=== PATIENT | female | born 1935 | race Caucasian/White ===

== ENCOUNTER 2017-04-10 11:06 | Emergency (ER) | payer MEDICARE, BC ==
[2017-04-10] MEDS ORDERED: Sodium Chloride 0.9% 10 ML Syringe FLUSH PRN (11:52)
--- NOTE | 2017-04-10 11:57 | EDM.PDOC ---
ED HPI GENERAL MEDICAL PROBLEM - General Chief Complaint: Cardiovascular Problem Stated Complaint: TROUBLE BREATHING Time Seen by Provider: 04/10/17 11:54 Source of Information: Reports: Patient History Limitations: Reports: No Limitations - History of Present Illness INITIAL COMMENTS - FREE TEXT/NARRATIVE: 81 yo female presents with c/o shortness of breath x 2-3 days. States that she has been having a lot of difficulty catching her breath. Denies pain, n/v but states she had some diarrhea yesterday. No other complaints. Onset: Unknown/Unsure Duration: Getting Worse Worsens with: Reports: Breathing Associated Symptoms: Reports: Headaches - Related Data Allergies Allergy/AdvReac Type Severity Reaction Status Date / Time Penicillins Allergy Airway Verified 04/10/17 11:40 Tightness Sulfa (Sulfonamide Allergy Airway Verified 04/10/17 11:40 Antibiotics) Tightness Home Meds: Home Meds Acetaminophen [Tylenol Arthritis Pain] 650 mg PO Q8H PRN 09/27/13 [History] Amiodarone HCl 200 mg PO DAILY 09/27/13 [History] Aspirin [Loida Chewable Aspirin] 81 mg PO DAILY 09/27/13 [History] Ca Carbonate/Vitamin D3/Vit K [Calcium + D Soft Chewable Tab] 1 each PO DAILY [History] Hydrochlorothiazide 25 mg PO DAILY 09/27/13 [History] Levothyroxine Sodium 50 mcg PO DAILY 09/27/13 [History] Multivitamin [Multi-Vitamin Daily] 1 tab PO DAILY 09/27/13 [History] Omeprazole 20 mg PO DAILY 09/27/13 [History] Sennosides/Docusate Sodium [Senna-Docusate Sodium] 1 tab PO DAILY 09/27/13 [ History] atorvaSTATin Calcium [Atorvastatin Calcium] 80 mg PO DAILY 09/27/13 [History] Warfarin [Coumadin] 6 mg PO DAILY 09/28/13 [History] LORazepam [LORazepam] 0.5 mg PO ASDIRECTED 12/03/15 [History] Lisinopril 20 mg PO ASDIRECTED 12/03/15 [History] Past Medical History Cardiovascular History: Reports: Afib Gastrointestinal History: Reports: GERD Psychiatric History: Reports: Anxiety Endocrine/Metabolic History: Reports: Hypothyroidism Social & Family History - Tobacco Use Smoking Status *Q: Former Smoker Years of Tobacco use: 20 Used Tobacco, but Quit: Yes Month Tobacco Last Used: years ago Second Hand Smoke Exposure: No - Alcohol Use Days Per Week of Alcohol Use: 0 Number of Drinks Per Day: 1 Total Drinks Per Week: 0 - Recreational Drug Use Recreational Drug Use: No - Living Situation & Occupation Living situation: Reports: , with Spouse Occupation: Retired ED ROS GENERAL - Review of Systems Review Of Systems: ROS reveals no pertinent complaints other than HPI. ED EXAM, GENERAL - Physical Exam Exam: See Below Exam Limited By: No Limitations General Appearance: Alert, WD/WN, No Apparent Distress Eye Exam: Bilateral Eye: PERRL Ears: Normal External Exam, Normal Canal, Hearing Grossly Normal, Normal TMs Ear Exam: Bilateral Ear: Auricle Normal, Canal Normal, TM normal Nose: Normal Inspection Throat/Mouth: Normal Inspection, Normal Lips, Normal Teeth, Normal Gums, Normal Oropharynx, Normal Voice, No Airway Compromise Head: Atraumatic, Normocephalic Neck: Normal Inspection, Supple, Non-Tender, Full Range of Motion Respiratory/Chest: No Respiratory Distress, No Accessory Muscle Use, Chest Non- Tender, Decreased Breath Sounds, Crackles (BLL), Pleural Rub Cardiovascular: Normal Peripheral Pulses, Regular Rate, Rhythm, No Edema, No Gallop, No JVD, No Murmur, No Rub GI/Abdominal: Normal Bowel Sounds, Soft, Non-Tender, No Organomegaly, No Distention, No Abnormal Bruit, No Mass Extremities: Normal Inspection, Normal Range of Motion, Non-Tender, Normal Capillary Refill, No Pedal Edema Neurological: Alert, Oriented, CN II-XII Intact, Normal Cognition, Normal Gait, No Motor/Sensory Deficits Skin Exam: Warm, Dry, Intact, Normal Color, No Rash Course - Vital Signs Last Recorded V/S: Last Vital Signs Temp 97.8 F 04/10/17 14:25 Pulse 92 04/10/17 11:15 Resp 18 04/10/17 14:25 BP 153/39 H 04/10/17 14:25 Pulse Ox 95 04/10/17 11:15 - Orders/Labs/Meds Orders: Active Orders 24 hr Category Date Time Status EKG Documentation Completion [RC] STAT Care 04/10/17 11:51 Active RED BLOOD CELLS LP [BBK] Stat Lab 04/10/17 13:00 Results TYPE AND SCREEN [BBK] Stat Lab 04/10/17 13:00 Results Pantoprazole [ProTONIX IV] 40 mg Med 04/10/17 14:43 Active Sodium Chloride 0.9% [Normal Saline] 100 ml IV .CONTINUOS Sodium Chloride 0.9% [Normal Saline] 250 ml Med 04/10/17 12:00 Active IV ASDIRECTED Sodium Chloride 0.9% [Saline Flush] Med 04/10/17 11:52 Active 10 ml FLUSH ASDIRECTED PRN Saline Lock Insert [OM.PC] Stat Ot 04/10/17 11:51 Ordered Transfuse PRBC [Transfuse Red Blood Cells] [COMM] Stat Ot 04/10/17 13:11 Ordered Medication Orders Sodium Chloride (Normal Saline) 250 mls @ 250 mls/hr IV ASDIRECTED SJ Last Admin: 04/10/17 12:26 Dose: 250 mls/hr Pantoprazole Sodium 40 mg/ (Sodium Chloride) 100 mls @ 20 mls/hr IV .CONTINUOS SJ Sodium Chloride (Saline Flush) 10 ml FLUSH ASDIRECTED PRN PRN Reason: Keep Vein Open Last Admin: 04/10/17 12:31 Dose: 10 ml Labs: Laboratory Tests 04/10/17 04/10/17 04/10/17 Range/Units 12:00 12:00 12:00 WBC 5.3 (5.0-10.0) 10^3/uL RBC 2.04 L (4.2-5.4) 10^6/uL Hgb 4.1 L* (12.0-16.0) g/dL Hct 15.3 L* (37.0-47.0) % MCV 75.0 L (80-100) fL MCH 20.1 L (27.0-34.0) pg MCHC 26.8 L (33.0-35.0) g/dL Plt Count 327 (150-450) 10^3/uL Neut % (Auto) 65.2 (42.2-75.2) % Lymph % (Auto) 23.4 (20.5-50.1) % [place] % (Auto) 9.3 H (2-8) % Eos % (Auto) 1.3 (1.0-3.0) % Baso % (Auto) 0.8 (0.0-1.0) % PT (9.0-12.0) SEC INR (0.9-1.2) Sodium 140 (135-145) mmol/L Potassium 3.8 (3.6-5.0) mmol/L Chloride 107 (101-111) mmol/L Carbon Dioxide 24.0 (21.0-31.0) mmol/L Anion Gap 12.8 BUN 14 (7-18) mg/dL Creatinine 0.6 (0.6-1.3) mg/dL Est Cr Clr Drug Dosing 63.82 mL/min Estimated GFR (MDRD) > 60 Glucose 97 (74-105) mg/dL Calcium 8.2 L (8.4-10.2) mg/dl Creatine Kinase 106 (26-174) IU/L Creatine Kinase Index 1.2 (0-2.4) % CK-MB (CK-2) 1.30 (0.4-4.7) ng/mL Troponin I < 0.02 (0.00-0.02) ng/ml B-Natriuretic Peptide 241 H (0-100) pg/ml Urine Color (YELLOW) Urine Appearance (CLEAR) Urine pH (5.0-9.0) Ur Specific [place] (1.005-1.030) Urine Protein (NEGATIVE) Urine Glucose (UA) (NEGATIVE) Urine Ketones (NEGATIVE) Urine Occult Blood (NEGATIVE) Urine Nitrite (NEGATIVE) Urine Bilirubin (NEGATIVE) Urine Urobilinogen (0.2-1.0) mg/dL Ur Leukocyte Esterase (NEGATIVE) Urine RBC /HPF Urine WBC (0-5/HPF) /HPF Ur Epithelial Cells /HPF Urine Bacteria (0-FEW/HPF) /HPF Blood Type Gel Antibody Screen Crossmatch 04/10/17 04/10/17 04/10/17 Range/Units 13:00 13:00 13:45 WBC (5.0-10.0) 10^3/uL RBC (4.2-5.4) 10^6/uL Hgb (12.0-16.0) g/dL Hct (37.0-47.0) % MCV (80-100) fL MCH (27.0-34.0) pg MCHC (33.0-35.0) g/dL Plt Count (150-450) 10^3/uL Neut % (Auto) (42.2-75.2) % Lymph % (Auto) (20.5-50.1) % [place] % (Auto) (2-8) % Eos % (Auto) (1.0-3.0) % Baso % (Auto) (0.0-1.0) % PT 36.8 H (9.0-12.0) SEC INR 3.6 H (0.9-1.2) Sodium (135-145) mmol/L Potassium (3.6-5.0) mmol/L Chloride (101-111) mmol/L Carbon Dioxide (21.0-31.0) mmol/L Anion Gap BUN (7-18) mg/dL Creatinine (0.6-1.3) mg/dL Est Cr Clr Drug Dosing mL/min Estimated GFR (MDRD) Glucose (74-105) mg/dL Calcium (8.4-10.2) mg/dl Creatine Kinase (26-174) IU/L Creatine Kinase Index (0-2.4) % CK-MB (CK-2) (0.4-4.7) ng/mL Troponin I (0.00-0.02) ng/ml B-Natriuretic Peptide (0-100) pg/ml Urine Color Yellow (YELLOW) Urine Appearance Clear (CLEAR) Urine pH 7.0 (5.0-9.0) Ur Specific [place] 1.015 (1.005-1.030) Urine Protein Negative (NEGATIVE) Urine Glucose (UA) Negative (NEGATIVE) Urine Ketones Negative (NEGATIVE) Urine Occult Blood Negative (NEGATIVE) Urine Nitrite Negative (NEGATIVE) Urine Bilirubin Negative (NEGATIVE) Urine Urobilinogen 0.2 (0.2-1.0) mg/dL Ur Leukocyte Esterase Negative (NEGATIVE) Urine RBC Not seen /HPF Urine WBC 0-5 (0-5/HPF) /HPF Ur Epithelial Cells Rare /HPF Urine Bacteria Rare (0-FEW/HPF) /HPF Blood Type B POSITIVE Gel Antibody Screen Negative Crossmatch See Detail Meds: Medications Generic Name Dose Route Start Last Admin Trade Name Freq PRN Reason Stop Dose Admin Sodium Chloride 250 mls @ 250 mls/hr 04/10/17 12:00 04/10/17 12:26 Normal Saline IV 250 mls/hr ASDIRECTED SJ Administration Pantoprazole Sodium 40 mg/ 100 mls @ 20 mls/hr 04/10/17 14:43 Sodium Chloride IV .CONTINUOS SJ Sodium Chloride 10 ml 04/10/17 11:52 04/10/17 12:31 Saline Flush FLUSH 10 ml ASDIRECTED PRN Administration Keep Vein Open Discontinued Medications Generic Name Dose Route Start Last Admin Trade Name Freq PRN Reason Stop Dose Admin Furosemide 20 mg 04/10/17 15:25 Lasix IVPUSH 04/10/17 15:26 ONETIME ONE Iopamidol 100 ml 04/10/17 13:55 04/10/17 14:14 Isovue-300 (61%) IVPUSH 04/10/17 13:56 100 ml ONETIME ONE Administration Phytonadione 1 mg 04/10/17 15:25 Aquamephyton SUBCUT 04/10/17 15:26 ONETIME ONE Departure - Departure Time of Disposition: 15:36 Disposition: Refer to Observation Reason for Transfer *Q: Primary PCI Indicated (GI Bleed) Condition: Fair Clinical Impression: CHF (congestive heart failure) Qualifiers: Congestive heart failure type: unspecified congestive heart failure type Congestive heart failure chronicity: acute Qualified Code(s): I50.9 - Heart failure, unspecified GI bleed Qualifiers: GI bleed type/associated pathology: unspecified gastrointestinal hemorrhage type Qualified Code(s): K92.2 - Gastrointestinal hemorrhage, unspecified Forms: ED Department Discharge, Interfacility Transfer EMTALA - My Orders Last 24 Hours: My Active Orders 04/10/17 11:51 EKG Documentation Completion [RC] STAT Saline Lock Insert [OM.PC] Stat 04/10/17 11:52 Sodium Chloride 0.9% [Saline Flush] 10 ml FLUSH ASDIRECTED PRN 04/10/17 12:00 Sodium Chloride 0.9% [Normal Saline] 250 ml IV ASDIRECTED 04/10/17 13:00 RED BLOOD CELLS LP [BBK] Stat TYPE AND SCREEN [BBK] Stat 04/10/17 13:11 Transfuse PRBC [Transfuse Red Blood Cells] [COMM] Stat 04/10/17 14:43 Pantoprazole [ProTONIX IV] 40 mg Sodium Chloride 0.9% [Normal Saline] 100 ml IV .CONTINUOS - Assessment/Plan Last 24 Hours: My Active Orders 04/10/17 11:51 EKG Documentation Completion [RC] STAT Saline Lock Insert [OM.PC] Stat 04/10/17 11:52 Sodium Chloride 0.9% [Saline Flush] 10 ml FLUSH ASDIRECTED PRN 04/10/17 12:00 Sodium Chloride 0.9% [Normal Saline] 250 ml IV ASDIRECTED 04/10/17 13:00 RED BLOOD CELLS LP [BBK] Stat TYPE AND SCREEN [BBK] Stat 04/10/17 13:11 Transfuse PRBC [Transfuse Red Blood Cells] [COMM] Stat 04/10/17 14:43 Pantoprazole [ProTONIX IV] 40 mg Sodium Chloride 0.9% [Normal Saline] 100 ml IV .CONTINUOS
[2017-04-10] MEDS ORDERED: Sodium Chloride 0.9% 250 ML IV SCH (12:00)
[2017-04-10 12:29] LABS: CHLORIDE,CL 107 mmol/L (101-111); SODIUM,NA 140 mmol/L (135-145)
--- NOTE | 2017-04-10 12:34 | CR ---
Clinical history: 81-year-old female shortness of breath. Interpretation: Generalized slight increased pulmonary venous congestion (compared to AP film Apr ust 2014) but normal cardiac silhouette and no alveolar edema or dependent pleural effusion. No new lung mass, hilar lymphadenopathy or focal lobar pneumonia. No atelectasis/collapse. No pneumothorax.
[2017-04-10] MEDS ORDERED: Iopamidol 612 MG/ML 100 ML Bottle IVPUSH ONE (13:55)
[2017-04-10] MEDS ORDERED: Pantoprazole 40 MG in Sodium Chloride 0.9% 100 ML IV SCH (14:43)
--- NOTE | 2017-04-10 15:18 | CT ---
Clinical history: 81-year-old hypertensive 162 pound female with low hemoglobin (4) and shortness of breath. Hysterectomy. Scan technique: Volume acquisition of data emergency unenhanced CT scan of the chest, abdomen and pe lvis obtained without oral contrast but during the intravenous administration 100 cc nonionic Isovue contrast (3 cc/s via injector) while the patient was lying supine on the Siemens multi slice scanne [place], [place]. All data archived in the PACS system for storage, reformatting and study. Interpretation: Abnormal. 1. *Large heart, bibasilar dependent pleural effusions and generalized pulmonary venous congestion c haracteristic of CHF. 2. Desiccation scattered along the course of normal caliber ectatic thoracic and abdominal aorta. No aneurysm or dissection. 3. Normal gallbladder, liver, stomach, spleen, pancreas and adrenal glands. No sign of visceral hemo rrhage or hematoma. 4. Normal kidneys without sign of cortical mass lesion, nephrolithiasis, hematoma or obstructive uro fatoumata. Normal bladder. 5. No pelvic or abdominal mass lesion; retroperitoneal hematoma or lymphadenopathy; inflammatory "di rty" peritoneal fat, signs of mechanical bowel obstruction, ascites or free intraperitoneal air. 6. 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 CONCLUSION: Heart failure. No sign of intraperitoneal bleed or hematomas.
[2017-04-10] MEDS ORDERED: Phytonadione 1 MG/0.5 ML Syringe SUBCUT ONE (15:25)
[2017-04-10] MEDS ORDERED: Furosemide 20 MG/2 ML VIAL IVPUSH ONE (15:25)
[2017-04-10] MEDS ORDERED: Furosemide 20 MG/2 ML VIAL ONE (15:40)
[2017-04-10] MEDS ORDERED: LORazepam 1 MG Tab PO ONE (16:02)
[2017-04-10 16:36] VITALS: BP 109/64
--- NOTE | 2017-04-14 11:21 | EKG ---
04/10/2017 - VICTORIANO MORGAN- TIME: 11:32 a.m. EKG shows sinus rhythm. There are nonspecific T-wave abnormalities in anterior leads. T-wave flattening. [facility] /[id number]
== END 2017-04-10 16:46 | disposition other institution (70) ==
LOC: DL.ED 11:06
DX: I50.9 Heart failure, unspecified (principal); K92.2 Gastrointestinal hemorrhage, unspecified; K21.9 Gastro-esophageal reflux disease without esophagitis; E03.9 Hypothyroidism, unspecified; F41.9 Anxiety disorder, unspecified; Z87.891 Personal history of nicotine dependence; Z88.0 Allergy status to penicillin; Z88.2 Allergy status to sulfonamides; Z79.82 Long term (current) use of aspirin; Z79.01 Long term (current) use of anticoagulants; Z79.899 Other long term (current) drug therapy
CPT/HCPCS: 36415; 36430; 71010; 71260; 74177; 80048; 81001; 82272; 82550; 82553; 83880; 84484; 85025; 85610; 86850; 86900; 86901; 86920; 86922; 93005; 96361; 96365; 96372; 96375; 99285; A9270; C9113; J1940; J7050; P9016; Q9967; 36410; 93010

== ENCOUNTER 2017-06-24 00:52 | Emergency (ER) | payer MEDICARE, BC ==
[2017-06-24 01:01] VITALS: BP 166/63
[2017-06-24] MEDS ORDERED: Ondansetron 4 MG/2 ML SDV IV ONE (01:09)
[2017-06-24 01:31] LABS: CHLORIDE,CL 102 mmol/L (101-111); SODIUM,NA 140 mmol/L (135-145)
[2017-06-24] MEDS ORDERED: Potassium Chloride 10 MEQ in Premix Bag 1 BAG IV ONE (01:41)
[2017-06-24] MEDS ORDERED: Sodium Chloride 0.9% 1,000 ML IV SCH (02:00)
--- NOTE | 2017-06-24 06:22 | EDM.PDOC ---
ED HPI GENERAL MEDICAL PROBLEM - General Chief Complaint: Cardiovascular Problem Stated Complaint: ATRIAL FIB Time Seen by Provider: 06/24/17 01:00 Source of Information: Reports: Patient History Limitations: Reports: No Limitations - History of Present Illness INITIAL COMMENTS - FREE TEXT/NARRATIVE: woke with heart racing, has had hx of afib in past with rapid rate. Recent INR done yesterday low, Coumadin increased. Nchest pain but SOB. Heart does not feel to be racing at preasent and breathing improved. Onset: Today, Sudden Duration: Minutes: Location: Reports: Chest Associated Symptoms: Reports: Shortness of Breath. Denies: Chest Pain - Related Data Allergies Allergy/AdvReac Type Severity Reaction Status Date / Time Penicillins Allergy Airway Verified 04/10/17 11:40 Tightness Sulfa (Sulfonamide Allergy Airway Verified 04/10/17 11:40 Antibiotics) Tightness Home Meds: Home Meds Acetaminophen [Tylenol Arthritis Pain] 650 mg PO Q8H PRN 09/27/13 [History] Amiodarone HCl 200 mg PO DAILY 09/27/13 [History] Aspirin [Loida Chewable Aspirin] 81 mg PO DAILY 09/27/13 [History] Ca Carbonate/Vitamin D3/Vit K [Calcium + D Soft Chewable Tab] 1 each PO DAILY [History] Hydrochlorothiazide 25 mg PO DAILY 09/27/13 [History] Levothyroxine Sodium 50 mcg PO DAILY 09/27/13 [History] Multivitamin [Multi-Vitamin Daily] 1 tab PO DAILY 09/27/13 [History] Omeprazole 20 mg PO DAILY 09/27/13 [History] Sennosides/Docusate Sodium [Senna-Docusate Sodium] 1 tab PO DAILY 09/27/13 [ History] atorvaSTATin Calcium [Atorvastatin Calcium] 80 mg PO DAILY 09/27/13 [History] Warfarin [Coumadin] 6 mg PO DAILY 09/28/13 [History] LORazepam [LORazepam] 0.5 mg PO ASDIRECTED 12/03/15 [History] Lisinopril 20 mg PO ASDIRECTED 12/03/15 [History] Furosemide [Lasix] 0 mg PO DAILY 06/24/17 [History] Past Medical History HEENT History: Reports: Impaired Vision Cardiovascular History: Reports: Afib Gastrointestinal History: Reports: GERD Psychiatric History: Reports: Anxiety Endocrine/Metabolic History: Reports: Hypothyroidism Social & Family History - Tobacco Use Smoking Status *Q: Never Smoker Years of Tobacco use: 20 Used Tobacco, but Quit: Yes Month Tobacco Last Used: years ago Second Hand Smoke Exposure: No - Caffeine Use Caffeine Use: Reports: Coffee - Alcohol Use Days Per Week of Alcohol Use: 0 Number of Drinks Per Day: 1 Total Drinks Per Week: 0 - Recreational Drug Use Recreational Drug Use: No - Living Situation & Occupation Living situation: Reports: , with Spouse Occupation: Retired ED ROS GENERAL - Review of Systems Review Of Systems: See Below Constitutional: Reports: No Symptoms HEENT: Reports: No Symptoms Respiratory: Reports: Shortness of Breath. Denies: Cough Cardiovascular: Reports: Palpitations (racing). Denies: Chest Pain GI/Abdominal: Reports: No Symptoms : Reports: No Symptoms Musculoskeletal: Reports: No Symptoms Skin: Reports: No Symptoms Neurological: Reports: No Symptoms ED EXAM, GENERAL - Physical Exam Exam: See Below Exam Limited By: No Limitations General Appearance: Alert, No Apparent Distress, Anxious Eye Exam: Bilateral Eye: EOMI, PERRL Ears: Normal External Exam Nose: Normal Inspection Throat/Mouth: Normal Inspection Head: Atraumatic, Normocephalic Neck: Normal Inspection Respiratory/Chest: No Respiratory Distress, Lungs Clear, Normal Breath Sounds Cardiovascular: Normal Peripheral Pulses, Regular Rate, Rhythm, No Edema GI/Abdominal: Normal Bowel Sounds, Soft, Non-Tender Extremities: Normal Inspection Neurological: Alert, Oriented, Normal Cognition Psychiatric: Normal Affect, Normal Mood Skin Exam: Warm, Dry, Intact, Normal Color, No Rash Course - Vital Signs Last Recorded V/S: Last Vital Signs Temp 98.1 F 06/24/17 01:03 Pulse 82 06/24/17 01:03 Resp 16 06/24/17 01:03 BP 166/63 H 06/24/17 01:03 Pulse Ox 97 06/24/17 01:03 - Orders/Labs/Meds Orders: Active Orders 24 hr Category Date Time Status EKG Documentation Completion [RC] URGENT Care 06/24/17 01:09 Active Sodium Chloride 0.9% [Normal Saline] 1,000 ml Med 06/24/17 02:00 Active IV ASDIRECTED Medication Orders Sodium Chloride (Normal Saline) 1,000 mls @ 100 mls/hr IV ASDIRECTED SJ Last Admin: 06/24/17 02:02 Dose: 100 mls/hr Labs: Laboratory Tests 06/24/17 06/24/17 06/24/17 Range/Units 01:00 01:00 01:00 WBC 7.4 (5.0-10.0) 10^3/uL RBC 4.38 (4.2-5.4) 10^6/uL Hgb 12.0 D (12.0-16.0) g/dL Hct 38.7 (37.0-47.0) % MCV 88.4 D (80-100) fL MCH 27.4 (27.0-34.0) pg MCHC 31.0 L (33.0-35.0) g/dL Plt Count 210 D (150-450) 10^3/uL Neut % (Auto) 57.3 (42.2-75.2) % Lymph % (Auto) 32.0 (20.5-50.1) % [place] % (Auto) 8.6 H (2-8) % Eos % (Auto) 1.7 (1.0-3.0) % Baso % (Auto) 0.4 (0.0-1.0) % PT 13.0 H D (9.0-12.0) SEC INR 1.3 H (0.9-1.2) D-Dimer, Quantitative (0-400) ng/mL Sodium 140 (135-145) mmol/L Potassium 3.0 L (3.6-5.0) mmol/L Chloride 102 (101-111) mmol/L Carbon Dioxide 28.0 (21.0-31.0) mmol/L Anion Gap 13.0 BUN 15 (7-18) mg/dL Creatinine 0.8 (0.6-1.3) mg/dL Est Cr Clr Drug Dosing 46.01 mL/min Estimated GFR (MDRD) > 60 BUN/Creatinine Ratio 18.75 Glucose 110 H (74-105) mg/dL Calcium 9.3 (8.4-10.2) mg/dl Total Bilirubin 0.3 (0.2-1.0) mg/dL AST 25 (10-42) IU/L ALT 19 (10-60) IU/L Alkaline Phosphatase 66 (42-121) IU/L CK-MB (CK-2) (0.4-4.7) ng/mL Troponin I < 0.02 (0.00-0.02) ng/ml Total Protein 7.3 (6.7-8.2) g/dl Albumin 4.2 (3.2-5.5) g/dl Globulin 3.1 Albumin/Globulin Ratio 1.35 Amylase 70 (28-100) U/L Lipase 29 (22-51) U/L 06/24/17 06/24/17 06/24/17 Range/Units 01:00 01:00 05:35 WBC (5.0-10.0) 10^3/uL RBC (4.2-5.4) 10^6/uL Hgb (12.0-16.0) g/dL Hct (37.0-47.0) % MCV (80-100) fL MCH (27.0-34.0) pg MCHC (33.0-35.0) g/dL Plt Count (150-450) 10^3/uL Neut % (Auto) (42.2-75.2) % Lymph % (Auto) (20.5-50.1) % [place] % (Auto) (2-8) % Eos % (Auto) (1.0-3.0) % Baso % (Auto) (0.0-1.0) % PT (9.0-12.0) SEC INR (0.9-1.2) D-Dimer, Quantitative 150 (0-400) ng/mL Sodium (135-145) mmol/L Potassium (3.6-5.0) mmol/L Chloride (101-111) mmol/L Carbon Dioxide (21.0-31.0) mmol/L Anion Gap BUN (7-18) mg/dL Creatinine (0.6-1.3) mg/dL Est Cr Clr Drug Dosing mL/min Estimated GFR (MDRD) BUN/Creatinine Ratio Glucose (74-105) mg/dL Calcium (8.4-10.2) mg/dl Total Bilirubin (0.2-1.0) mg/dL AST (10-42) IU/L ALT (10-60) IU/L Alkaline Phosphatase (42-121) IU/L CK-MB (CK-2) 3.50 (0.4-4.7) ng/mL Troponin I < 0.02 (0.00-0.02) ng/ml Total Protein (6.7-8.2) g/dl Albumin (3.2-5.5) g/dl Globulin Albumin/Globulin Ratio Amylase (28-100) U/L Lipase (22-51) U/L Meds: Medications Generic Name Dose Route Start Last Admin Trade Name Freq PRN Reason Stop Dose Admin Sodium Chloride 1,000 mls @ 100 mls/hr 06/24/17 02:00 06/24/17 02:02 Normal Saline IV 100 mls/hr ASDIRECTED SJ Administration Discontinued Medications Generic Name Dose Route Start Last Admin Trade Name Freq PRN Reason Stop Dose Admin Potassium Chloride 10 meq/ 100 mls @ 100 mls/hr 06/24/17 01:41 06/24/17 01:48 Premix IV 06/24/17 02:40 100 mls/hr ONETIME ONE Administration Ondansetron HCl 4 mg 06/24/17 01:09 06/24/17 01:15 Zofran IV 06/24/17 01:10 4 mg ONETIME ONE Administration - Radiology Interpretation Free Text/Narrative:: CXR negative - Re-Assessments/Exams Free Text/Narrative Re-Assessment/Exam: 06/24/17 06:33 Patient has maintained NSR 60-80 since arrival. No c/o. PCP Dr. 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 Results of testing and monitoring reviewed with patient. She is to follow up with Dr. Rodriguez today via phone. Departure - Departure Time of Disposition: 06:20 Disposition: Home, Self-Care 01 Condition: Good Clinical Impression: Palpitations, Subtherapeutic anticoagulation, Paroxysmal atrial fibrillation, Hypokalemia Instructions: Atrial Fibrillation, [id number] Forms: ED Department Discharge Additional Instructions: follow up with primary provider rest today urgent follow up if symptoms return with rapid rate, chest pain or difficulty breathing - My Orders Last 24 Hours: My Active Orders 06/24/17 01:09 EKG Documentation Completion [RC] URGENT 06/24/17 02:00 Sodium Chloride 0.9% [Normal Saline] 1,000 ml IV ASDIRECTED - Assessment/Plan Last 24 Hours: My Active Orders 06/24/17 01:09 EKG Documentation Completion [RC] URGENT 06/24/17 02:00 Sodium Chloride 0.9% [Normal Saline] 1,000 ml IV ASDIRECTED
--- NOTE | 2017-06-25 08:40 | EKG ---
06/24/2017- VICTORIANO MORGAN - EKG per my reading shows sinus rhythm at a rate of [address] changes. MOD /[id number]
== END 2017-06-24 07:07 | disposition home or self-care (01) ==
LOC: DL.ED 00:52
DX: I48.0 Paroxysmal atrial fibrillation (principal); E87.6 Hypokalemia; F41.9 Anxiety disorder, unspecified; K21.9 Gastro-esophageal reflux disease without esophagitis; E03.9 Hypothyroidism, unspecified; Z79.01 Long term (current) use of anticoagulants; Z88.0 Allergy status to penicillin; Z88.2 Allergy status to sulfonamides; Z79.82 Long term (current) use of aspirin; Z79.899 Other long term (current) drug therapy
CPT/HCPCS: 36415; 71010; 80053; 82150; 82553; 83690; 84484; 85025; 85379; 85610; 93005; 93010; 96361; 96365; 96375; 99284; J2405; J3480; J7030

== ENCOUNTER 2017-06-27 09:18 | Emergency (ER) | payer MEDICARE, BC ==
--- NOTE | 2017-06-27 09:56 | EDM.PDOC ---
ED HPI GENERAL MEDICAL PROBLEM - General Chief Complaint: Cardiovascular Problem Stated Complaint: HEART RACING Time Seen by Provider: 06/27/17 09:47 Source of Information: Reports: Patient History Limitations: Reports: No Limitations - History of Present Illness INITIAL COMMENTS - FREE TEXT/NARRATIVE: 81 yo white female c/o increased heart rate at 9:20AM upon rising from bed. No Chest Pains and No SOB. Onset: Today Onset Date: 06/27/17 Onset Time: 09:20 Duration: Hour(s):, Improving Location: Reports: Chest Severity: Mild Improves with: Reports: None Worsens with: Reports: None Context: Reports: Other (PMHx. A-Fib) Associated Symptoms: Reports: No Other Symptoms - Related Data Allergies Allergy/AdvReac Type Severity Reaction Status Date / Time Penicillins Allergy Airway Verified 04/10/17 11:40 Tightness Sulfa (Sulfonamide Allergy Airway Verified 04/10/17 11:40 Antibiotics) Tightness Home Meds: Home Meds Acetaminophen [Tylenol Arthritis Pain] 650 mg PO Q8H PRN 09/27/13 [History] Amiodarone HCl 200 mg PO DAILY 09/27/13 [History] Aspirin [Loida Chewable Aspirin] 81 mg PO DAILY 09/27/13 [History] Ca Carbonate/Vitamin D3/Vit K [Calcium + D Soft Chewable Tab] 1 each PO DAILY [History] Hydrochlorothiazide 25 mg PO DAILY 09/27/13 [History] Levothyroxine Sodium 50 mcg PO DAILY 09/27/13 [History] Multivitamin [Multi-Vitamin Daily] 1 tab PO DAILY 09/27/13 [History] Omeprazole 20 mg PO DAILY 09/27/13 [History] Sennosides/Docusate Sodium [Senna-Docusate Sodium] 1 tab PO DAILY 09/27/13 [ History] atorvaSTATin Calcium [Atorvastatin Calcium] 80 mg PO DAILY 09/27/13 [History] Warfarin [Coumadin] 6 mg PO DAILY 09/28/13 [History] LORazepam [LORazepam] 0.5 mg PO ASDIRECTED 12/03/15 [History] Lisinopril 20 mg PO ASDIRECTED 12/03/15 [History] Furosemide [Lasix] 0 mg PO DAILY 06/24/17 [History] Past Medical History HEENT History: Reports: Impaired Vision Cardiovascular History: Reports: Afib Gastrointestinal History: Reports: GERD Psychiatric History: Reports: Anxiety Endocrine/Metabolic History: Reports: Hypothyroidism Social & Family History - Tobacco Use Smoking Status *Q: Never Smoker Years of Tobacco use: 20 Used Tobacco, but Quit: Yes Month Tobacco Last Used: years ago Second Hand Smoke Exposure: No - Caffeine Use Caffeine Use: Reports: Coffee - Alcohol Use Days Per Week of Alcohol Use: 0 Number of Drinks Per Day: 1 Total Drinks Per Week: 0 - Recreational Drug Use Recreational Drug Use: No - Living Situation & Occupation Living situation: Reports: , with Spouse Occupation: Retired ED ROS GENERAL - Review of Systems Review Of Systems: See Below Constitutional: Reports: No Symptoms HEENT: Reports: No Symptoms Respiratory: Reports: No Symptoms Cardiovascular: Reports: Palpitations Endocrine: Reports: No Symptoms GI/Abdominal: Reports: No Symptoms : Reports: No Symptoms Musculoskeletal: Reports: No Symptoms Skin: Reports: No Symptoms Neurological: Reports: No Symptoms Psychiatric: Reports: No Symptoms Hematologic/Lymphatic: Reports: No Symptoms Immunologic: Reports: No Symptoms ED EXAM, GENERAL - Physical Exam Exam: See Below Exam Limited By: No Limitations General Appearance: Alert, WD/WN, No Apparent Distress Eye Exam: Bilateral Eye: EOMI, PERRL Ears: Normal External Exam Nose: Normal Inspection Throat/Mouth: Normal Inspection Head: Atraumatic Neck: Normal Inspection Respiratory/Chest: No Respiratory Distress, Lungs Clear Cardiovascular: Normal Peripheral Pulses, Regular Rate, Rhythm (SInus rhythm @ 64/min.), No Edema, No Gallop, No JVD, No Murmur, No Rub GI/Abdominal: Normal Bowel Sounds, Soft Back Exam: Normal Inspection Extremities: Normal Inspection, Normal Range of Motion Neurological: Alert, Oriented, CN II-XII Intact, Normal Cognition Psychiatric: Normal Affect, Normal Mood Skin Exam: Warm, Dry, Intact Lymphatic: No Adenopathy Course - Vital Signs Last Recorded V/S: Last Vital Signs Temp 36.5 C 06/27/17 09:39 Pulse 59 L 06/27/17 12:10 Resp 16 06/27/17 12:10 BP 135/61 06/27/17 12:10 Pulse Ox 95 06/27/17 12:10 - Orders/Labs/Meds Orders: Active Orders 24 hr Category Date Time Status EKG Documentation Completion [RC] STAT Care 06/27/17 09:47 Active Labs: Laboratory Tests 06/27/17 06/27/17 06/27/17 Range/Units 10:00 10:00 10:00 WBC 4.0 L (5.0-10.0) 10^3/uL RBC 4.25 (4.2-5.4) 10^6/uL Hgb 11.8 L (12.0-16.0) g/dL Hct 38.5 (37.0-47.0) % MCV 90.6 (80-100) fL MCH 27.8 (27.0-34.0) pg MCHC 30.6 L (33.0-35.0) g/dL Plt Count 180 (150-450) 10^3/uL Neut % (Auto) 61.9 (42.2-75.2) % Lymph % (Auto) 27.0 (20.5-50.1) % [place] % (Auto) 7.8 (2-8) % Eos % (Auto) 2.8 (1.0-3.0) % Baso % (Auto) 0.5 (0.0-1.0) % D-Dimer, Quantitative 579 H (0-400) ng/mL Sodium 141 (135-145) mmol/L Potassium 3.9 (3.6-5.0) mmol/L Chloride 107 (101-111) mmol/L Carbon Dioxide 28.0 (21.0-31.0) mmol/L Anion Gap 9.9 BUN 9 (7-18) mg/dL Creatinine 0.7 (0.6-1.3) mg/dL Est Cr Clr Drug Dosing 54.79 mL/min Estimated GFR (MDRD) > 60 BUN/Creatinine Ratio 12.85 Glucose 101 (74-105) mg/dL Calcium 9.0 (8.4-10.2) mg/dl Total Bilirubin 0.3 (0.2-1.0) mg/dL AST 20 (10-42) IU/L ALT 16 (10-60) IU/L Alkaline Phosphatase 55 (42-121) IU/L Troponin I < 0.02 (0.00-0.02) ng/ml Total Protein 6.2 L (6.7-8.2) g/dl Albumin 3.6 (3.2-5.5) g/dl Globulin 2.6 Albumin/Globulin Ratio 1.38 Meds: Medications Discontinued Medications Generic Name Dose Route Start Last Admin Trade Name Bossman PRN Reason Stop Dose Admin Iopamidol 100 ml 06/27/17 11:42 06/27/17 12:14 Isovue-370 (76%) IVPUSH 06/27/17 11:43 57 ml ONETIME ONE Administration Departure - Departure Time of Disposition: 13:16 Disposition: Home, Self-Care 01 Condition: Good Clinical Impression: Heart palpitations Instructions: Atrial Fibrillation, [id number] Forms: ED Department Discharge Additional Instructions: Rest Take prescribed medications as directed only F/U w/ PCP - My Orders Last 24 Hours: My Active Orders 06/27/17 09:47 EKG Documentation Completion [RC] STAT - Assessment/Plan Last 24 Hours: My Active Orders 06/27/17 09:47 EKG Documentation Completion [RC] STAT
[2017-06-27 10:24] LABS: CHLORIDE,CL 107 mmol/L (101-111); SODIUM,NA 141 mmol/L (135-145)
--- NOTE | 2017-06-27 10:33 | CR ---
Clinical history: 81-year-old female rapid heartbeat. Interpretation: Normal cardiac silhouette unchanged since 10 April and 24 June films. No new cephalization of flow, signs of alveolar edema or dependent pleural fluid accumulation. No lung mass, hilar lymphadenopathy or focal lobar pneumonia (some patchy bibasilar atelectasis). 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 CONCLUSION: No acute new cardiopulmonary abnormality since 24 June exam.
[2017-06-27] MEDS ORDERED: Iopamidol 755 Mg/ML 100 ML Bottle IVPUSH ONE (11:42)
[2017-06-27 12:12] VITALS: BP 135/61
--- NOTE | 2017-06-30 15:00 | EKG ---
06/27/2017- VICTORIANO MORGAN - A 12-lead EKG shows normal sinus rhythm with heart rate of 64. No significant ST elevation or ST depression noted on this 12-lead EKG. [facility] /[id number]
== END 2017-06-27 13:47 | disposition home or self-care (01) ==
LOC: DL.ED 09:18
DX: R00.2 Palpitations (principal); I48.91 Unspecified atrial fibrillation; K21.9 Gastro-esophageal reflux disease without esophagitis; F41.9 Anxiety disorder, unspecified; E03.9 Hypothyroidism, unspecified; Z87.891 Personal history of nicotine dependence; Z79.01 Long term (current) use of anticoagulants; Z79.899 Other long term (current) drug therapy; Z79.82 Long term (current) use of aspirin; Z88.0 Allergy status to penicillin; Z88.2 Allergy status to sulfonamides
CPT/HCPCS: 36415; 71010; 71260; 80053; 84484; 85025; 85379; 93005; 99285; Q9967; 93010; 99284

== ENCOUNTER 2018-11-07 20:05 | Observation (INO) | payer MEDICARE, BC ==
--- NOTE | 2018-11-07 20:37 | EDM.PDOC ---
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 Hx HR up to 225 after hip surgery 5 years ago. Not on coumadin at present. No GI sx, NO sore throat. Nasal discharge has been yellow. Mild orthopnea - Related Data Allergies Allergy/AdvReac Type Severity Reaction Status Date / Time Penicillins Allergy Airway Verified 07/03/18 11:38 Tightness Sulfa (Sulfonamide Allergy Airway Verified 07/03/18 11:38 Antibiotics) Tightness Home Meds: Home Meds Acetaminophen [Tylenol Arthritis Pain] 650 mg PO Q8H PRN 09/27/13 [History] Amiodarone HCl 200 mg PO DAILY 09/27/13 [History] Aspirin [Loida Chewable Aspirin] 81 mg PO DAILY 09/27/13 [History] Ca Carbonate/Vitamin D3/Vit K [Calcium + D Soft Chewable Tab] 1 each PO DAILY [History] Hydrochlorothiazide 25 mg PO DAILY 09/27/13 [History] Levothyroxine Sodium 50 mcg PO DAILY 09/27/13 [History] Multivitamin [Multi-Vitamin Daily] 1 tab PO DAILY 09/27/13 [History] Omeprazole 20 mg PO DAILY 09/27/13 [History] Sennosides/Docusate Sodium [Senna-Docusate Sodium] 1 tab PO DAILY 09/27/13 [ History] atorvaSTATin Calcium [Atorvastatin Calcium] 80 mg PO DAILY 09/27/13 [History] Warfarin [Coumadin] 6 mg PO DAILY 09/28/13 [History] LORazepam 0.5 mg PO ASDIRECTED 12/03/15 [History] Lisinopril 20 mg PO ASDIRECTED 12/03/15 [History] Furosemide [Lasix] 0 mg PO DAILY 06/24/17 [History] Past Medical History HEENT History: Reports: Hard of Hearing, Impaired Vision Cardiovascular History: Reports: Afib Respiratory History: Reports: None Gastrointestinal History: Reports: GERD Genitourinary History: Reports: None 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 Musculoskeletal History: Reports: Back Pain, Chronic Neurological History: Reports: Vertigo Psychiatric History: Reports: Anxiety Endocrine/Metabolic History: Reports: Hypothyroidism Hematologic History: Reports: None Immunologic History: Reports: None Oncologic (Cancer) History: Reports: None Dermatologic History: Reports: None - Past Surgical History Head Surgeries/Procedures: Reports: None Social & Family History - Family History Family Medical History: Noncontributory - Caffeine Use Caffeine Use: Reports: Coffee - Living Situation & Occupation Living situation: Reports: , with Spouse Occupation: Retired ED ROS GENERAL - Review of Systems Review Of Systems: See Below Constitutional: Reports: Diaphoresis HEENT: Reports: Glasses, Sinus Problem (congestion) Respiratory: Reports: Shortness of Breath (when flat). Denies: Pleuritic Chest Pain, Cough, Sputum Cardiovascular: Reports: Orthopnea, Palpitations, Other (hx intermittent A-fib) . Denies: Chest Pain, Lightheadedness GI/Abdominal: Reports: No Symptoms, Other (hx GI bleed) : Reports: No Symptoms Musculoskeletal: Reports: No Symptoms Skin: Reports: No Symptoms Neurological: Reports: No Symptoms ED EXAM, GENERAL - Physical Exam Exam: See Below Exam Limited By: No Limitations General Appearance: Alert, Mild Distress Eye Exam: Bilateral Eye: EOMI, PERRL Ears: Normal External Exam, Normal TMs Nose: Other (congested, ). No: Nasal Drainage Throat/Mouth: Normal Inspection Head: Atraumatic, Normocephalic Neck: Normal Inspection Respiratory/Chest: No Respiratory Distress, Lungs Clear Cardiovascular: Normal Peripheral Pulses, Regular Rate, Rhythm, No JVD GI/Abdominal: Soft, Non-Tender Back Exam: Normal Inspection, Full Range of Motion Extremities: Normal Inspection, Normal Range of Motion, No Pedal Edema Neurological: Alert, Oriented, Normal Cognition Psychiatric: Normal Affect, Normal Mood Skin Exam: Warm, Dry, Intact, Normal Color Course - Vital Signs Last Recorded V/S: Last Vital Signs Temp 97.6 F 11/07/18 20:28 Pulse 85 11/07/18 20:28 Resp 18 11/07/18 20:28 BP 163/67 H 11/07/18 20:28 Pulse Ox 95 11/07/18 20:28 - Orders/Labs/Meds Orders: Active Orders 24 hr Category Date Time Status EKG 12 Lead [EKG Documentation Completion] [RC] URGENT Care 11/07/18 20:16 Active Oxygen Therapy [RC] ASDIRECTED Care 11/07/18 21:32 Active CULTURE BLOOD [BC] Stat Lab 11/07/18 20:19 Received CULTURE BLOOD [BC] Stat Lab 11/07/18 21:05 Received Sodium Chloride 0.9% [Normal Saline] 1,000 ml Med 11/07/18 20:55 Active IV .BOLUS Blood Culture x2 Reflex Set [OM.PC] Stat Oth 11/07/18 20:14 Ordered Medication Orders Sodium Chloride (Normal Saline) 1,000 mls @ 25 mls/hr IV .BOLUS ONE Stop: 11/09/18 12:54 Last Admin: 11/07/18 21:01 Dose: 25 mls/hr Labs: Laboratory Tests 11/07/18 11/07/18 11/07/18 Range/Units 20:19 20:19 20:19 WBC 7.6 (5.0-10.0) 10^3/uL RBC 4.43 (4.2-5.4) 10^6/uL Hgb 14.1 D (12.0-16.0) g/dL Hct 42.5 (37.0-47.0) % MCV 95.9 (80-100) fL MCH 31.8 (27.0-34.0) pg MCHC 33.2 (33.0-35.0) g/dL Plt Count 199 (150-450) 10^3/uL Neut % (Auto) 55.2 (42.2-75.2) % Lymph % (Auto) 28.6 (20.5-50.1) % [place] % (Auto) 10.8 H (2-8) % Eos % (Auto) 4.9 H (1.0-3.0) % Baso % (Auto) 0.5 (0.0-1.0) % PT 9.0 (9.0-12.0) SEC INR 0.9 (0.9-1.2) D-Dimer, Quantitative (0-400) ng/mL Sodium 136 (135-145) mmol/L Potassium 3.0 L (3.6-5.0) mmol/L Chloride 98 L (101-111) mmol/L Carbon Dioxide 27.0 (21.0-31.0) mmol/L Anion Gap 14.0 BUN 11 (7-18) mg/dL Creatinine 0.8 (0.6-1.3) mg/dL Est Cr Clr Drug Dosing 44.40 mL/min Estimated GFR (MDRD) > 60 BUN/Creatinine Ratio 13.75 Glucose 131 H (74-105) mg/dL Lactic Acid (0.5-2.2) mmol/L Calcium 9.0 (8.4-10.2) mg/dl Magnesium 1.9 (1.8-2.5) mg/dL Total Bilirubin 0.9 (0.2-1.0) mg/dL AST 28 (10-42) IU/L ALT 22 (10-60) IU/L Alkaline Phosphatase 77 (42-121) IU/L Troponin I < 0.02 (0.00-0.02) ng/ml B-Natriuretic Peptide 35 (0-100) pg/ml Total Protein 7.3 (6.7-8.2) g/dl Albumin 4.1 (3.2-5.5) g/dl Globulin 3.2 Albumin/Globulin Ratio 1.28 Urine Color (YELLOW) Urine Appearance (CLEAR) Urine pH (5.0-9.0) Ur Specific Ward (1.005-1.030) Urine Protein (NEGATIVE) Urine Glucose (UA) (NEGATIVE) Urine Ketones (NEGATIVE) Urine Occult Blood (NEGATIVE) Urine Nitrite (NEGATIVE) Urine Bilirubin (NEGATIVE) Urine Urobilinogen (0.2-1.0) mg/dL Ur Leukocyte Esterase (NEGATIVE) 11/07/18 11/07/18 11/07/18 Range/Units 20:19 20:19 23:00 WBC (5.0-10.0) 10^3/uL RBC (4.2-5.4) 10^6/uL Hgb (12.0-16.0) g/dL Hct (37.0-47.0) % MCV (80-100) fL MCH (27.0-34.0) pg MCHC (33.0-35.0) g/dL Plt Count (150-450) 10^3/uL Neut % (Auto) (42.2-75.2) % Lymph % (Auto) (20.5-50.1) % [place] % (Auto) (2-8) % Eos % (Auto) (1.0-3.0) % Baso % (Auto) (0.0-1.0) % PT (9.0-12.0) SEC INR (0.9-1.2) D-Dimer, Quantitative 710 H (0-400) ng/mL Sodium (135-145) mmol/L Potassium (3.6-5.0) mmol/L Chloride (101-111) mmol/L Carbon Dioxide (21.0-31.0) mmol/L Anion Gap BUN (7-18) mg/dL Creatinine (0.6-1.3) mg/dL Est Cr Clr Drug Dosing mL/min Estimated GFR (MDRD) BUN/Creatinine Ratio Glucose (74-105) mg/dL Lactic Acid 1.0 (0.5-2.2) mmol/L Calcium (8.4-10.2) mg/dl Magnesium (1.8-2.5) mg/dL Total Bilirubin (0.2-1.0) mg/dL AST (10-42) IU/L ALT (10-60) IU/L Alkaline Phosphatase (42-121) IU/L Troponin I (0.00-0.02) ng/ml B-Natriuretic Peptide (0-100) pg/ml Total Protein (6.7-8.2) g/dl Albumin (3.2-5.5) g/dl Globulin Albumin/Globulin Ratio Urine Color Dark yellow (YELLOW) Urine Appearance Clear (CLEAR) Urine pH 5.5 (5.0-9.0) Ur Specific Ward 1.015 (1.005-1.030) Urine Protein Negative (NEGATIVE) Urine Glucose (UA) Negative (NEGATIVE) Urine Ketones Negative (NEGATIVE) Urine Occult Blood Negative (NEGATIVE) Urine Nitrite Negative (NEGATIVE) Urine Bilirubin Negative (NEGATIVE) Urine Urobilinogen 0.2 (0.2-1.0) mg/dL Ur Leukocyte Esterase Negative (NEGATIVE) Meds: Medications Generic Name Dose Route Start Last Admin Trade Name Freq PRN Reason Stop Dose Admin Sodium Chloride 1,000 mls @ 25 mls/hr 11/07/18 20:55 11/07/18 21:01 Normal Saline IV 11/09/18 12:54 25 mls/hr .BOLUS ONE Administration Discontinued Medications Generic Name Dose Route Start Last Admin Trade Name Bossman PRN Reason Stop Dose Admin Fluticasone Propionate 1 gm 11/07/18 22:06 11/07/18 23:02 Flonase NASBOTH 11/07/18 22:07 2 spray ONETIME ONE Administration Potassium Chloride 10 meq/ 100 mls @ 100 mls/hr 11/07/18 20:54 11/07/18 21:01 Premix IV 11/07/18 21:53 100 mls/hr ONETIME ONE Administration Iopamidol 100 ml 11/07/18 22:12 11/07/18 22:28 Isovue-370 (76%) IVPUSH 11/07/18 22:13 100 ml ONETIME ONE Administration - Radiology Interpretation Free Text/Narrative:: Name: VICTORIANO MORGAN Age: 83Years F Date: 11/07/2018 SSN: -- : [id number] Study: XR CHEST 1 VIEW Requesting Physician: TOI CLINTON Images: 1 Addl Studies: Provided Clinical History: Contrast: Contrast Medium: Contrast Amount: Contrast Method: CONFIDENTIALITY STATEMENT This report is intended only for use by the referring physician, and only in accordance with law. If you received this in error, call [phone]. Page 1 of 1 EXAM: XR Chest, 1 View EXAM DATE/TIME: 11/07/2018 8:40 PM CLINICAL HISTORY: 83 years old, female; Signs and symptoms; Cough and other: Cold sweats TECHNIQUE: XR of the chest, 1 view. COMPARISON: CR Chest 2V 07/03/2018 11:57 AM FINDINGS: Lungs: There are no suspicious pulmonary nodules or areas of lung consolidation. Pleural space: Unremarkable. No pleural effusion. No pneumothorax. Heart/Mediastinum: The cardiac silhouette is not enlarged. Bones/joints: There are postoperative changes of the spine. Other findings: Right hemidiaphragmatic eventration. IMPRESSION: 1. Negative. No pneumonia. 2. No significant interval change when compared to the CR Chest 2V 07/03/2018 11 :57 AM. Thank you for allowing us to participate in the care of your patient. Dictated and Authenticated by: Carlos Vila MD 11/07/2018 9:30 PM Central Time ([place] & [place] Name: VICTORIANO MORGAN Age: 83Years F Date: 11/07/2018 SSN: -- : [id number] Study: CT CHEST W Requesting Physician: TOI CLINTON Images: [id number] Addl Studies: Provided Clinical History: Contrast: With Contrast Medium: Contrast Amount: 84 mL Contrast Method: lac Page 1 of 2 EXAM: CT Chest With Contrast EXAM DATE/TIME: 11/07/2018 10:45 PM CLINICAL HISTORY: 83 years old, female; Signs and symptoms; Other: Desaturation, d-dimer 710 TECHNIQUE: Axial computed tomography images of the chest with intravenous contrast. All CT scans at this facility use at least one of these dose optimization techniques: automated exposure control; mA and/or kV adjustment per patient size (includes targeted exams where dose is matched to clinical indication); or iterative reconstruction. Coronal and sagittal reformatted images were created and reviewed. CONTRAST: 84 ml of administered intravenously. COMPARISON: CT Chest w Cont 06/27/2017 11:36 AM FINDINGS: Lungs: Subsegmental atelectasis or scarring at each lung base. Mild bullous lung disease.There are no suspicious pulmonary nodules or areas of lung consolidation. Pleural space: There is no significant effusion. No pneumothorax. No mass, plaque or calcification. Heart: There is mild cardiomegaly. There are atherosclerotic calcifications of the coronary arteries. Mediastinum: There are no masses at the thoracic inlet. Aorta: Normal. No aortic aneurysm. VICTORIANO MORGAN | Final Radiology Report CONFIDENTIALITY STATEMENT This report is intended only for use by the referring physician, and only in accordance with law. If you received this in error, call [phone]. Page 2 of 2 Great vessels off aortic arch: The thoracic aorta and other great vessels are normal in caliber with no intimal flap to indicate dissection. Lymph nodes: No enlarged supraclavicular, axillary, mediastinal or hilar lymph nodes are seen. Bones/joints: There are postoperative changes of the spine.There are no suspicious lytic or osteosclerotic lesions. Soft tissues: Unremarkable. IMPRESSION: No pulmonary embolism. Thank you for allowing us to participate in the care of your patient. Dictated and Authenticated by: Ka - Re-Assessments/Exams Free Text/Narrative Re-Assessment/Exam: 11/07/18 23:24 Desaturation to 89% at rest, increase 92-93 with stimulation of movment and conversation. O2 1 liter per cannula saturation 94%. Reports feeling improved with oxygen 11/07/18 23:[address] Do, accepting patient for observation Departure - Departure Time of Disposition: 23:47 Disposition: Refer to Observation Condition: Good Clinical Impression: Paroxysmal atrial fibrillation, Palpitations, Hypokalemia, Nasal congestion, Orthopnea, Oxygen desaturation Forms: ED Department Discharge - My Orders Last 24 Hours: My Active Orders 11/07/18 20:14 Blood Culture x2 Reflex Set [OM.PC] Stat 11/07/18 20:16 EKG 12 Lead [EKG Documentation Completion] [RC] URGENT 11/07/18 20:19 CULTURE BLOOD [BC] Stat 11/07/18 20:55 Sodium Chloride 0.9% [Normal Saline] 1,000 ml IV .BOLUS 11/07/18 21:05 CULTURE BLOOD [BC] Stat 11/07/18 21:32 Oxygen Therapy [RC] ASDIRECTED - Assessment/Plan Last 24 Hours: My Active Orders 11/07/18 20:14 Blood Culture x2 Reflex Set [OM.PC] Stat 11/07/18 20:16 EKG 12 Lead [EKG Documentation Completion] [RC] URGENT 11/07/18 20:19 CULTURE BLOOD [BC] Stat 11/07/18 20:55 Sodium Chloride 0.9% [Normal Saline] 1,000 ml IV .BOLUS 11/07/18 21:05 CULTURE BLOOD [BC] Stat 11/07/18 21:32 Oxygen Therapy [RC] ASDIRECTED"
[2018-11-07 20:50] LABS: CHLORIDE,CL 98 mmol/L (101-111); SODIUM,NA 136 mmol/L (135-145)
[2018-11-07] MEDS ORDERED: Potassium Chloride 10 MEQ in Premix Bag 1 BAG IV ONE (20:54)
[2018-11-07] MEDS ORDERED: Sodium Chloride 0.9% 1,000 ML IV ONE (20:55)
[2018-11-07] MEDS ORDERED: Fluticasone Propionate Nasal Spray 16 GM Bottle NASBOTH ONE (22:06)
[2018-11-07] MEDS ORDERED: Iopamidol 755 Mg/ML 100 ML Bottle IVPUSH ONE (22:12)
--- NOTE | 2018-11-08 00:17 | PCM.HP ---
H&P History of Present Illness - General Date of Service: 11/08/18 Source of Information: Patient, EMS, Old Records, Provider History Limitations: Reports: No Limitations - History of Present Illness Initial Comments - Free Text/Narative: Ms. Emily Mcguire82 y.o.female with medical history significant for hypertension, hyperlipidemia, and peripheral neuropathy, Paroxysmal A-fib,W as recently seen by EP cardiology and plan to have atrioventricular junctional ablation and implantation of permanent pacemaker placement and once she makes the decision they that will be done soon. Today she presented to ED with c/o of cold sweats, tonight, she changed night gouwn 3 times FLY SETTER, no chest pain, has had cold sx, congestion x 2-3 days, Not on coumadin at present. h/o GI bleed NO sore throat. Nasal discharge has been yellow. Mild orthopnea, in ED 02 sat on RA was 87% and 95% with 1L NC. she is not on home oxygen and will have walking desaturation study in AM and if 02 sat is low then she will need to go home with oxygen and may need evaluation by Pulmonary. she will be admitted for Hypoxia of unknown etiology. In ED she CT chest with contrast No PE and no pneumonia. CXR also showed no Infiltrate, has normal white count. Onset of Symptoms: Reports: Sudden Associated Symptoms: Reports: Shortness of Breath - Related Data Allergies/Adverse Reactions: Allergies Allergy/AdvReac Type Severity Reaction Status Date / Time Penicillins Allergy Airway Verified 11/08/18 00:16 Tightness Sulfa (Sulfonamide Allergy Airway Verified 11/08/18 00:16 Antibiotics) Tightness Home Medications: Home Meds Acetaminophen [Tylenol Arthritis Pain] 650 mg PO Q8H PRN 09/27/13 [History] Amiodarone HCl 200 mg PO DAILY 09/27/13 [History] Aspirin [Loida Chewable Aspirin] 81 mg PO QID 09/27/13 [History] Ca Carbonate/Vitamin D3/Vit K [Calcium + D Soft Chewable Tab] 1 each PO DAILY [History] Levothyroxine Sodium 50 mcg PO DAILY 09/27/13 [History] Multivitamin [Multi-Vitamin Daily] 1 tab PO DAILY 09/27/13 [History] Omeprazole 20 mg PO DAILY 09/27/13 [History] Sennosides/Docusate Sodium [Senna-Docusate Sodium] 1 tab PO DAILY 09/27/13 [ History] atorvaSTATin Calcium [Atorvastatin Calcium] 40 mg PO BEDTIME 09/27/13 [History] LORazepam 0.5 mg PO DAILY 12/03/15 [History] Furosemide [Lasix] 40 mg PO DAILY 06/24/17 [History] Meclizine [Antivert] 25 mg PO TID PRN 11/08/18 [History] Sertraline [Zoloft] 25 mg PO DAILY 11/08/18 [History] traMADol [Ultram] 50 mg PO Q6H PRN 11/08/18 [History] traZODone HCl [Trazodone HCl] 50 mg PO BEDTIME PRN 11/08/18 [History] Past Medical History HEENT History: Reports: Hard of Hearing, Impaired Vision Cardiovascular History: Reports: Afib Respiratory History: Reports: None Gastrointestinal History: Reports: GERD Genitourinary History: Reports: None CLINICAL NURSING COORDINATOR History: Reports: None Musculoskeletal History: Reports: Back Pain, Chronic Neurological History: Reports: Vertigo Psychiatric History: Reports: Anxiety Endocrine/Metabolic History: Reports: Hypothyroidism Hematologic History: Reports: None Immunologic History: Reports: None Oncologic (Cancer) History: Reports: None Dermatologic History: Reports: None - Past Surgical History Head Surgeries/Procedures: Reports: None Social & Family History - Family History Family Medical History: Noncontributory - Tobacco Use Smoking Status *Q: Unknown Ever Smoked - Caffeine Use Caffeine Use: Reports: Coffee - Recreational Drug Use Recreational Drug Use: No - Living Situation & Occupation Living situation: Reports: , with Spouse Occupation: Retired H&P Review of Systems - Review of Systems: Review Of Systems: See Below General: Denies: Fever, Chills, Weakness, Night Sweats, Decreased Appetite HEENT: Reports: Sinus Congestion. Denies: Hearing Changes, Sore Throat, Visual Changes Pulmonary: Reports: Shortness of Breath. Denies: Wheezing, Pleuritic Chest Pain , Cough, Sputum Cardiovascular: Reports: Dyspnea on Exertion. Denies: Chest Pain, Palpitations , Lightheadedness Gastrointestinal: Denies: Abdominal Pain, Constipation, Diarrhea, Difficulty Swallowing, Nausea, Vomiting Genitourinary: Denies: Dysuria, Frequency, Burning, Urgency, Flank Pain Musculoskeletal: Denies: Neck Pain, Leg Pain, Joint Pain, Muscle Stiffness Skin: Denies: Jaundice, Diaphoresis, Bruising, Pruritis, Rash Psychiatric: Denies: Confusion, Anxiety Neurological: Denies: Confusion, Tremors, Trouble Speaking, Difficulty Walking Hematologic/Lymphatic: Denies: No Symptoms Immunologic: Reports: No Symptoms Exam - Exam Exam: See Below - Vital Signs Vital Signs: Last Vital Signs Temp 36.4 C 11/07/18 20:28 Pulse 85 11/07/18 20:28 Resp 18 11/07/18 20:28 BP 163/67 H 11/07/18 20:28 Pulse Ox 95 11/07/18 20:28 Weight: 65.771 kg - Exam Quality Assessment: Supplemental Oxygen, DVT Prophylaxis. No: Urinary Catheter General: Alert, Oriented, Cooperative HEENT: Conjunctiva Clear, Hearing Intact, Mucosa Moist & [place], Pupils Equal Neck: Supple. No: Lymphadenopathy, Thyromegaly Lungs: Clear to Auscultation, Normal Respiratory Effort. No: Crackles, Wheezing Cardiovascular: Regular Rate, Regular Rhythm, Systolic Murmur GI/Abdominal Exam: Normal Bowel Sounds, No Distention. No: Guarding, Rigid, Rebound (Female) Exam: Deferred Rectal (Female) Exam: Deferred Back Exam: Normal Inspection, Full Range of Motion Extremities: Normal Inspection, No Pedal Edema Skin: Warm, Dry, Intact Neurological: Cranial Nerves Intact, Reflexes Equal Bilateral Neuro Extensive - Mental Status: Alert, Oriented x3, Normal Mood/Affect, Normal Cognition, Memory Intact Neuro Extensive - Motor, Sensory, Reflexes: CN II-XII Intact, Normal Gait, Normal Reflexes Psychiatric: Alert, Normal Affect, Normal Mood - Patient Data Lab Results Last 24 hrs: Laboratory Results - last 24 hr 11/07/18 11/07/18 11/07/18 Range/Units 20:19 20: 20: WBC 7.6 (5.0-10.0) 10^3/uL RBC 4.43 (4.2-5.4) 10^6/uL Hgb 14.1 D (12.0-16.0) g/dL Hct 42.5 (37.0-47.0) % MCV 95.9 (80-100) fL MCH 31.8 (27.0-34.0) pg MCHC 33.2 (33.0-35.0) g/dL Plt Count 199 (150-450) 10^3/uL Neut % (Auto) 55.2 (42.2-75.2) % Lymph % (Auto) 28.6 (20.5-50.1) % [place] % (Auto) 10.8 H (2-8) % Eos % (Auto) 4.9 H (1.0-3.0) % Baso % (Auto) 0.5 (0.0-1.0) % PT 9.0 (9.0-12.0) SEC INR 0.9 (0.9-1.2) D-Dimer, Quantitative (0-400) ng/mL Sodium 136 (135-145) mmol/L Potassium 3.0 L (3.6-5.0) mmol/L Chloride 98 L (101-111) mmol/L Carbon Dioxide 27.0 (21.0-31.0) mmol/L Anion Gap 14.0 BUN 11 (7-18) mg/dL Creatinine 0.8 (0.6-1.3) mg/dL Est Cr Clr Drug Dosing 44.40 mL/min Estimated GFR (MDRD) > 60 BUN/Creatinine Ratio 13.75 Glucose 131 H (74-105) mg/dL Lactic Acid (0.5-2.2) mmol/L Calcium 9.0 (8.4-10.2) mg/dl Magnesium 1.9 (1.8-2.5) mg/dL Total Bilirubin 0.9 (0.2-1.0) mg/dL AST 28 (10-42) IU/L ALT 22 (10-60) IU/L Alkaline Phosphatase 77 (42-121) IU/L Troponin I < 0.02 (0.00-0.02) ng/ml B-Natriuretic Peptide 35 (0-100) pg/ml Total Protein 7.3 (6.7-8.2) g/dl Albumin 4.1 (3.2-5.5) g/dl Globulin 3.2 Albumin/Globulin Ratio 1.28 Urine Color (YELLOW) Urine Appearance (CLEAR) Urine pH (5.0-9.0) Ur Specific [place] (1.005-1.030) Urine Protein (NEGATIVE) Urine Glucose (UA) (NEGATIVE) Urine Ketones (NEGATIVE) Urine Occult Blood (NEGATIVE) Urine Nitrite (NEGATIVE) Urine Bilirubin (NEGATIVE) Urine Urobilinogen (0.2-1.0) mg/dL Ur Leukocyte Esterase (NEGATIVE) 11/07/18 11/07/18 11/07/18 Range/Units 20:19 20:19 23:00 WBC (5.0-10.0) 10^3/uL RBC (4.2-5.4) 10^6/uL Hgb (12.0-16.0) g/dL Hct (37.0-47.0) % MCV (80-100) fL MCH (27.0-34.0) pg MCHC (33.0-35.0) g/dL Plt Count (150-450) 10^3/uL Neut % (Auto) (42.2-75.2) % Lymph % (Auto) (20.5-50.1) % [place] % (Auto) (2-8) % Eos % (Auto) (1.0-3.0) % Baso % (Auto) (0.0-1.0) % PT (9.0-12.0) SEC INR (0.9-1.2) D-Dimer, Quantitative 710 H (0-400) ng/mL Sodium (135-145) mmol/L Potassium (3.6-5.0) mmol/L Chloride (101-111) mmol/L Carbon Dioxide (21.0-31.0) mmol/L Anion Gap BUN (7-18) mg/dL Creatinine (0.6-1.3) mg/dL Est Cr Clr Drug Dosing mL/min Estimated GFR (MDRD) BUN/Creatinine Ratio Glucose (74-105) mg/dL Lactic Acid 1.0 (0.5-2.2) mmol/L Calcium (8.4-10.2) mg/dl Magnesium (1.8-2.5) mg/dL Total Bilirubin (0.2-1.0) mg/dL AST (10-42) IU/L ALT (10-60) IU/L Alkaline Phosphatase (42-121) IU/L Troponin I (0.00-0.02) ng/ml B-Natriuretic Peptide (0-100) pg/ml Total Protein (6.7-8.2) g/dl Albumin (3.2-5.5) g/dl Globulin Albumin/Globulin Ratio Urine Color Dark yellow (YELLOW) Urine Appearance Clear (CLEAR) Urine pH 5.5 (5.0-9.0) Ur Specific [place] 1.015 (1.005-1.030) Urine Protein Negative (NEGATIVE) Urine Glucose (UA) Negative (NEGATIVE) Urine Ketones Negative (NEGATIVE) Urine Occult Blood Negative (NEGATIVE) Urine Nitrite Negative (NEGATIVE) Urine Bilirubin Negative (NEGATIVE) Urine Urobilinogen 0.2 (0.2-1.0) mg/dL Ur Leukocyte Esterase Negative (NEGATIVE) Result Diagrams: 11/07/18 20:19 11/07/18 20:19 [place] Results Last 24 hrs: Microbiology 11/07/18 20:25 Influenza Type A Antigen Screen - Final Nasal, Left NEGATIVE INFLUENZA A VIRUS AG Influenza Type B Antigen Screen - Final NEGATIVE INFLUENZA B VIRUS AG - Problem List (1) Hypokalemia SNOMED Code(s): 16403862 ICD Code: E87.6 - HYPOKALEMIA Status: Acute Current Visit: Yes (2) Nasal congestion SNOMED Code(s): 28281306 ICD Code: R09.81 - NASAL CONGESTION Status: Acute Current Visit: Yes (3) Oxygen desaturation SNOMED Code(s): 126221112 ICD Code: R09.02 - HYPOXEMIA Status: Acute Current Visit: Yes Problem List Initiated/Reviewed/Updated: Yes Orders Last 24hrs: Active Orders 24 hr Category Date Time Status EKG 12 Lead [EKG Documentation Completion] [RC] URGENT Care 11/07/18 20:16 Active Oxygen Therapy [RC] ASDIRECTED Care 11/07/18 21:32 Active CULTURE BLOOD [BC] Stat Lab 11/07/18 20:19 Received CULTURE BLOOD [BC] Stat Lab 11/07/18 21:05 Received Sodium Chloride 0.9% [Normal Saline] 1,000 ml Med 11/07/18 20:55 Active IV .BOLUS Blood Culture x2 Reflex Set [OM.PC] Stat Oth 11/07/18 20:14 Ordered Medication Orders Sodium Chloride (Normal Saline) 1,000 mls @ 25 mls/hr IV .BOLUS ONE Stop: 11/09/18 12:54 Last Admin: 11/07/18 21:01 Dose: 25 mls/hr Assessment/Plan Comment:: Ms. Emily Mcguire82 y.o.female with medical history significant for hypertension, hyperlipidemia, and peripheral neuropathy, Paroxysmal A-fib,W as recently seen by EP cardiology and plan to have atrioventricular junctional ablation and implantation of permanent pacemaker placement and once she makes the decision they that will be done soon. Today she presented to ED with c/o of cold sweats, tonight, she changed night gouwn 3 times FLY SETTER, no chest pain, has had cold sx, congestion x 2-3 days, Not on coumadin at present. h/o GI bleed NO sore throat. Nasal discharge has been yellow. Mild orthopnea, in ED 02 sat on RA was 87% and 95% with 1L NC. she is not on home oxygen and will have walking desaturation study in AM and if 02 sat is low then she will need to go home with oxygen and may need evaluation by Pulmonary. she will be admitted for Hypoxia of unknown etiology. In ED she CT chest with contrast No PE and no pneumonia. CXR also showed no Infiltrate, has normal white count 1. Hypoxia of unknown etiology: -CT chest with contrast negative for PE or Pneumonia -Will continue NC oxygen and keep 02 sat >90 -Will empirically start her on Ceftriaxone 1 gm IV daily -Will start flonase 2 spray to each nostril daily -Will have walking desaturation in AM and if stay low then she will likely need oxygen to go home 2. Paroxysmal A-Fib: Seen by EP cardiology and will likely haveatrioventricular junctional ablation and implantation of permanent pacemaker placement, now will continue Amiodarone -She is not on ani-coagulation ( has H/O GI bleed) 3. Hypertension: Will continue Home medication 4. Hypthyroidism: Continue Levothyroxine 5. GI Prophylaxis: Continue omeprazole 20 mg daily 6. DVT prophylaxis: Continue Heparin Code Status: I discussed with pt and she wants to Full Code
[2018-11-08] MEDS ORDERED: Acetaminophen 325 MG Tab PO PRN (00:34)
[2018-11-08] MEDS ORDERED: Docusate Sodium 100 MG Cap PO PRN (00:34)
[2018-11-08] MEDS ORDERED: traZODone 50 MG Tab PO PRN (00:45)
[2018-11-08] MEDS ORDERED: TRAMADOL 50 MG PO PRN (00:45)
[2018-11-08] MEDS ORDERED: Meclizine 12.5 MG Tab PO PRN (00:57)
[2018-11-08] MEDS ORDERED: cefTRIAXone 1 GM in Sodium Chloride 0.9% 50 ML IV ONE (01:00)
[2018-11-08] MEDS ORDERED: Heparin Sodium 5,000 Units/ML Vial SUBCUT ONE (01:00)
[2018-11-08] MEDS ORDERED: Levothyroxine 50 MCG Tab PO SCH (06:00)
[2018-11-08 06:54] LABS: ANION GAP 13.6; CHLORIDE,CL 103 mmol/L (101-111); SODIUM,NA 139 mmol/L (135-145)
[2018-11-08] MEDS ORDERED: Amiodarone 200 MG Tab PO SCH (09:00)
[2018-11-08] MEDS ORDERED: Multivitamins,Therapeutic Tab PO SCH (09:00)
[2018-11-08] MEDS ORDERED: Sertraline 50 MG Tab PO SCH (09:00)
[2018-11-08] MEDS ORDERED: Calcium Carbonate/Vitamin D3 1250 MG-200 Unit Tab PO SCH (09:00)
[2018-11-08] MEDS ORDERED: Aspirin 81 MG Tab.Chew PO SCH (09:00)
[2018-11-08] MEDS ORDERED: Furosemide 20 MG Tab PO SCH (09:00)
[2018-11-08] MEDS ORDERED: AMIODARONE 200 MG PO SCH ×2 (10:05→10:14)
[2018-11-08] MEDS ORDERED: traZODone 50 MG Tab **OWN MED PO PRN (10:11)
--- NOTE | 2018-11-08 10:27 | PCM.PN ---
- General Info Date of Service: 11/08/18 Admission Dx/Problem (Free Text): cough, hypoxemia Subjective Update: still nasal discharge, no cp, no associated cough no fever has been on 1/2 l/min nc oxygen - Review of Systems General: Denies: Fever, Weakness HEENT: Reports: Sinus Congestion. Denies: Sore Throat Pulmonary: Denies: Shortness of Breath Cardiovascular: Denies: Chest Pain Gastrointestinal: Denies: Abdominal Pain Psychiatric: Denies: Confusion - Patient Data Vitals - Most Recent: Last Vital Signs Temp 36.6 C 11/08/18 08:24 Pulse 61 11/08/18 08:24 Resp 20 11/08/18 08:24 BP 123/51 L 11/08/18 08:24 Pulse Ox 95 11/08/18 08:24 Weight - Most Recent: 65.771 kg I&O - Last 24 Hours: Intake & Output 11/07/18 11/08/18 11/08/18 22:59 06:59 14:59 Intake Total 189 Balance 189 Lab Results Last 24 Hours: Laboratory Results - last 24 hr 11/07/18 11/07/18 11/07/18 Range/Units 20:19 20:19 20:19 WBC 7.6 (5.0-10.0) 10^3/uL RBC 4.43 (4.2-5.4) 10^6/uL Hgb 14.1 D (12.0-16.0) g/dL Hct 42.5 (37.0-47.0) % MCV 95.9 (80-100) fL MCH 31.8 (27.0-34.0) pg MCHC 33.2 (33.0-35.0) g/dL Plt Count 199 (150-450) 10^3/uL Neut % (Auto) 55.2 (42.2-75.2) % Lymph % (Auto) 28.6 (20.5-50.1) % [place] % (Auto) 10.8 H (2-8) % Eos % (Auto) 4.9 H (1.0-3.0) % Baso % (Auto) 0.5 (0.0-1.0) % PT 9.0 (9.0-12.0) SEC INR 0.9 (0.9-1.2) D-Dimer, Quantitative (0-400) ng/mL Sodium 136 (135-145) mmol/L Potassium 3.0 L (3.6-5.0) mmol/L Chloride 98 L (101-111) mmol/L Carbon Dioxide 27.0 (21.0-31.0) mmol/L Anion Gap 14.0 BUN 11 (7-18) mg/dL Creatinine 0.8 (0.6-1.3) mg/dL Est Cr Clr Drug Dosing 44.40 mL/min Estimated GFR (MDRD) > 60 BUN/Creatinine Ratio 13.75 Glucose 131 H (74-105) mg/dL Lactic Acid (0.5-2.2) mmol/L Calcium 9.0 (8.4-10.2) mg/dl Magnesium 1.9 (1.8-2.5) mg/dL Total Bilirubin 0.9 (0.2-1.0) mg/dL AST 28 (10-42) IU/L ALT 22 (10-60) IU/L Alkaline Phosphatase 77 (42-121) IU/L Troponin I < 0.02 (0.00-0.02) ng/ml B-Natriuretic Peptide 35 (0-100) pg/ml Total Protein 7.3 (6.7-8.2) g/dl Albumin 4.1 (3.2-5.5) g/dl Globulin 3.2 Albumin/Globulin Ratio 1.28 Urine Color (YELLOW) Urine Appearance (CLEAR) Urine pH (5.0-9.0) Ur Specific [place] (1.005-1.030) Urine Protein (NEGATIVE) Urine Glucose (UA) (NEGATIVE) Urine Ketones (NEGATIVE) Urine Occult Blood (NEGATIVE) Urine Nitrite (NEGATIVE) Urine Bilirubin (NEGATIVE) Urine Urobilinogen (0.2-1.0) mg/dL Ur Leukocyte Esterase (NEGATIVE) 11/07/18 11/07/18 11/07/18 Range/Units 20:19 20:19 23:00 WBC (5.0-10.0) 10^3/uL RBC (4.2-5.4) 10^6/uL Hgb (12.0-16.0) g/dL Hct (37.0-47.0) % MCV (80-100) fL MCH (27.0-34.0) pg MCHC (33.0-35.0) g/dL Plt Count (150-450) 10^3/uL Neut % (Auto) (42.2-75.2) % Lymph % (Auto) (20.5-50.1) % [place] % (Auto) (2-8) % Eos % (Auto) (1.0-3.0) % Baso % (Auto) (0.0-1.0) % PT (9.0-12.0) SEC INR (0.9-1.2) D-Dimer, Quantitative 710 H (0-400) ng/mL Sodium (135-145) mmol/L Potassium (3.6-5.0) mmol/L Chloride (101-111) mmol/L Carbon Dioxide (21.0-31.0) mmol/L Anion Gap BUN (7-18) mg/dL Creatinine (0.6-1.3) mg/dL Est Cr Clr Drug Dosing mL/min Estimated GFR (MDRD) BUN/Creatinine Ratio Glucose (74-105) mg/dL Lactic Acid 1.0 (0.5-2.2) mmol/L Calcium (8.4-10.2) mg/dl Magnesium (1.8-2.5) mg/dL Total Bilirubin (0.2-1.0) mg/dL AST (10-42) IU/L ALT (10-60) IU/L Alkaline Phosphatase (42-121) IU/L Troponin I (0.00-0.02) ng/ml B-Natriuretic Peptide (0-100) pg/ml Total Protein (6.7-8.2) g/dl Albumin (3.2-5.5) g/dl Globulin Albumin/Globulin Ratio Urine Color Dark yellow (YELLOW) Urine Appearance Clear (CLEAR) Urine pH 5.5 (5.0-9.0) Ur Specific [place] 1.015 (1.005-1.030) Urine Protein Negative (NEGATIVE) Urine Glucose (UA) Negative (NEGATIVE) Urine Ketones Negative (NEGATIVE) Urine Occult Blood Negative (NEGATIVE) Urine Nitrite Negative (NEGATIVE) Urine Bilirubin Negative (NEGATIVE) Urine Urobilinogen 0.2 (0.2-1.0) mg/dL Ur Leukocyte Esterase Negative (NEGATIVE) 11/08/18 11/08/18 Range/Units 05:45 05:45 WBC 5.2 (5.0-10.0) 10^3/uL RBC 3.90 L (4.2-5.4) 10^6/uL Hgb 12.2 D (12.0-16.0) g/dL Hct 38.3 (37.0-47.0) % MCV 98.2 (80-100) fL MCH 31.3 (27.0-34.0) pg MCHC 31.9 L (33.0-35.0) g/dL Plt Count 187 (150-450) 10^3/uL Neut % (Auto) 61.4 (42.2-75.2) % Lymph % (Auto) 22.5 (20.5-50.1) % [place] % (Auto) 11.1 H (2-8) % Eos % (Auto) 4.6 H (1.0-3.0) % Baso % (Auto) 0.4 (0.0-1.0) % PT (9.0-12.0) SEC INR (0.9-1.2) D-Dimer, Quantitative (0-400) ng/mL Sodium 139 (135-145) mmol/L Potassium 3.6 (3.6-5.0) mmol/L Chloride 103 (101-111) mmol/L Carbon Dioxide 26.0 (21.0-31.0) mmol/L Anion Gap 13.6 BUN 9 (7-18) mg/dL Creatinine 0.7 (0.6-1.3) mg/dL Est Cr Clr Drug Dosing 50.74 mL/min Estimated GFR (MDRD) > 60 BUN/Creatinine Ratio Glucose 84 (74-105) mg/dL Lactic Acid (0.5-2.2) mmol/L Calcium 8.6 (8.4-10.2) mg/dl Magnesium (1.8-2.5) mg/dL Total Bilirubin (0.2-1.0) mg/dL AST (10-42) IU/L ALT (10-60) IU/L Alkaline Phosphatase (42-121) IU/L Troponin I (0.00-0.02) ng/ml B-Natriuretic Peptide (0-100) pg/ml Total Protein (6.7-8.2) g/dl Albumin (3.2-5.5) g/dl Globulin Albumin/Globulin Ratio Urine Color (YELLOW) Urine Appearance (CLEAR) Urine pH (5.0-9.0) Ur Specific [place] (1.005-1.030) Urine Protein (NEGATIVE) Urine Glucose (UA) (NEGATIVE) Urine Ketones (NEGATIVE) Urine Occult Blood (NEGATIVE) Urine Nitrite (NEGATIVE) Urine Bilirubin (NEGATIVE) Urine Urobilinogen (0.2-1.0) mg/dL Ur Leukocyte Esterase (NEGATIVE) [place] Results Last 24 Hours: Microbiology 11/07/18 20:25 Influenza Type A Antigen Screen - Final Nasal, Left NEGATIVE INFLUENZA A VIRUS AG Influenza Type B Antigen Screen - Final NEGATIVE INFLUENZA B VIRUS AG Med Orders - Current: Current Medications Acetaminophen (Tylenol) 650 mg PO Q4H PRN PRN Reason: Pain (mild 1-3 )/fever Aspirin (Aspirin) 81 mg PO QID SJ Calcium Carbonate (Calcium Carbonate/Vitamin D 1250 Mg-200 Unit) 1 tab PO DAILY SJ Docusate Sodium (Colace) 100 mg PO DAILY PRN PRN Reason: Constipation Fluticasone Propionate (Flonase) 0 gm NASBOTH DAILY SJ Furosemide (Lasix) 40 mg PO DAILY SJ Stop: 11/08/18 10:30 Heparin Sodium (Porcine) (Heparin Sodium) 5,000 units SUBCUT Q8H SJ Sodium Chloride (Normal Saline) 1,000 mls @ 25 mls/hr IV .BOLUS ONE Stop: 11/09/18 12:54 Last Infusion: 11/08/18 01:17 Dose: 25 mls/hr Ceftriaxone Sodium 1 gm/ (Sodium Chloride) 50 mls @ 50 mls/hr IV Q24H SJ Lorazepam (Ativan) 0.5 mg PO DAILY SJ Meclizine HCl (Antivert) 25 mg PO TID PRN PRN Reason: Dizziness Multivitamins (Thera) 1 each PO DAILY SJ Atorvastatin 80 Mg (Tab Own Med) 0.5 each PO BEDTIME SJ Sertraline 25 Mg Tab (Own Med) 1 each PO DAILY SJ Trazodone 50 Mg Tab (Own Med) 1 each PO BEDTIME PRN PRN Reason: Pain Amiodarone 200 Mg (Tab Own Med) 1 each PO DAILY SJ Levothyroxine 50 Mcg (Tab Own Med) 1 each PO ACBREAKFAST SJ Furosemide 40 Mg Tab (Own Med) 1 each PO DAILY SJ Senna/Docusate Sodium (Senna Plus) 1 tab PO DAILY [facility] Tramadol HCl (Ultram) 50 mg PO Q6H PRN PRN Reason: Pain Discontinued Medications Amiodarone HCl (Cordarone) 200 mg PO DAILY [facility] Fluticasone Propionate (Flonase) 1 gm NASBOTH ONETIME ONE Stop: 11/07/18 22:07 Last Admin: 11/07/18 23:02 Dose: 2 spray Heparin Sodium (Porcine) (Heparin Sodium) 5,000 units SUBCUT ONETIME ONE Stop: 11/08/18 01:01 Last Admin: 11/08/18 01:24 Dose: 5,000 units Potassium Chloride 10 meq/ (Premix) 100 mls @ 100 mls/hr IV ONETIME ONE Stop: 11/07/18 21:53 Last Admin: 11/07/18 21:01 Dose: 100 mls/hr Ceftriaxone Sodium 1 gm/ (Sodium Chloride) 50 mls @ 50 mls/hr IV ONETIME ONE Stop: 11/08/18 01:59 Last Admin: 11/08/18 01:20 Dose: 50 mls/hr Iopamidol (Isovue-370 (76%)) 100 ml IVPUSH ONETIME ONE Stop: 11/07/18 22:13 Last Admin: 11/07/18 22:28 Dose: 100 ml Levothyroxine Sodium (Synthroid) 50 mcg PO ACBREAKFAST [facility] Last Admin: 11/08/18 06:15 Dose: 50 mcg Sertraline 25 Mg Tab (Own Med) 25 each PO DAILY [facility] Amiodarone 200 Mg (Tab Own Med) 200 each PO DAILY [facility] Trazodone 50 Mg Tab (Own Med) 50 each PO BEDTIME PRN PRN Reason: Pain Sertraline HCl (Zoloft) 25 mg PO DAILY [facility] Trazodone HCl (Trazodone) 50 mg PO BEDTIME PRN PRN Reason: Pain Last Admin: 11/08/18 01:24 Dose: 50 mg - Exam General: Alert, Oriented HEENT: Other (nasal congestion) Neck: Supple Lungs: Clear to Auscultation, Normal Respiratory Effort Cardiovascular: Irregular Rhythm. No: Bradycardia, Tachycardia GI/Abdominal Exam: Normal Bowel Sounds, Soft, Non-Tender Extremities: No Pedal Edema Skin: Warm, Dry Psy/Mental Status: Alert, Normal Affect, Normal Mood - Problem List & Annotations (1) Nasal congestion SNOMED Code(s): 09159158 Code(s): R09.81 - NASAL CONGESTION Status: Acute Current Visit: Yes (2) Oxygen desaturation SNOMED Code(s): 666036286 Code(s): R09.02 - HYPOXEMIA Status: Acute Current Visit: Yes (3) Paroxysmal atrial fibrillation SNOMED Code(s): 568565917 Code(s): I48.0 - PAROXYSMAL ATRIAL FIBRILLATION Status: Acute Current Visit: Yes - Problem List Review Problem List Initiated/Reviewed/Updated: Yes - Plan Plan:: Ms. Emily Mcguire82 y.o.female with medical history significant for hypertension, hyperlipidemia, and peripheral neuropathy, Paroxysmal A-fib,W as recently seen by EP cardiology and plan to have atrioventricular junctional ablation and implantation of permanent pacemaker placement and once she makes the decision they that will be done soon. She presented to ED with c/o of cold sweats, no chest pain, has had cold sx, congestion x 2-3 days, Not on coumadin at present due to h/o GI bleed NO sore throat. Nasal discharge has been yellow. Mild orthopnea, in ED 02 sat on RA was 87% and 95% with 1L NC. she is not on home oxygen In ED she CT chest with contrast No PE and no pneumonia. 1. Hypoxia of unknown etiology: -CT chest with contrast negative for PE or Pneumonia CXR also showed no Infiltrate, has normal white count -Will continue NC oxygen and keep 02 sat >90 -Will empirically continue her on Ceftriaxone 1 gm IV daily -cont flonase 2 spray to each nostril daily -Will have overnight and walking desaturation to see if she needs oxygen to go home 2. Paroxysmal A-Fib: Seen by EP cardiology and will likely haveatrioventricular junctional ablation and implantation of permanent pacemaker placement, now will continue Amiodarone -She is not on ani-coagulation ( has H/O GI bleed) 3. Hypertension: Will continue Home medication 4. Hypthyroidism: Continue Levothyroxine 5. GI Prophylaxis: Continue omeprazole 20 mg daily 6. DVT prophylaxis: Continue Heparin
[2018-11-08] MEDS: Heparin Sodium 5,000 Units/ML Vial SUBCUT SCH ×3 (10:32→23:38)
[2018-11-08] MEDS ORDERED: Potassium Chloride 10 MEQ Tab.ER PO ONE (10:33)
[2018-11-08] MEDS ORDERED: Aspirin 81 MG Tab.EC PO SCH (10:48)
[2018-11-08] MEDS: Aspirin 81 MG Tab.EC PO SCH ×2 (10:56→14:41)
[2018-11-08] MEDS: AMIODARONE 200 MG PO SCH (11:07)
[2018-11-08] MEDS: Fluticasone Propionate Nasal Spray 16 GM Bottle NASBOTH SCH (12:35)
[2018-11-08] MEDS: LORazepam 0.5 MG Tab PO SCH (12:43)
[2018-11-08] MEDS: CALCIUM CARBONATE PO SCH (14:01)
[2018-11-08] MEDS: MULTIVITAMIN PO SCH (14:01)
[2018-11-08] MEDS: [UNRECOGNIZED DRUG - OTHER] PO SCH (14:01)
[2018-11-08] MEDS: Aspirin 81 MG Tab.EC **OWN MED PO SCH ×2 (17:06→20:37)
[2018-11-08] MEDS ORDERED: Sodium Chloride 0.9% 10 ML Syringe FLUSH PRN (19:15)
[2018-11-08] MEDS: cefTRIAXone 1 GM in Sodium Chloride 0.9% 50 ML IV SCH (20:40)
[2018-11-08] MEDS: traZODone 50 MG Tab **OWN MED PO PRN (22:14)
[2018-11-09] MEDS: Levothyroxine 50 MCG Tab **OWN MED PO SCH (05:48)
[2018-11-09] MEDS: Fluticasone Propionate Nasal Spray 16 GM Bottle NASBOTH SCH ×2 (09:25→20:46)
[2018-11-09] MEDS: LORazepam 0.5 MG Tab PO SCH (09:25)
[2018-11-09] MEDS: Aspirin 81 MG Tab.EC **OWN MED PO SCH ×4 (09:26→20:43)
[2018-11-09] MEDS: AMIODARONE 200 MG PO SCH (09:27)
[2018-11-09] MEDS: MULTIVITAMIN PO SCH (09:27)
[2018-11-09] MEDS: [UNRECOGNIZED DRUG - OTHER] PO SCH (09:27)
[2018-11-09] MEDS: CALCIUM CARBONATE PO SCH (09:27)
[2018-11-09] MEDS: Heparin Sodium 5,000 Units/ML Vial SUBCUT SCH ×3 (10:38→23:43)
--- NOTE | 2018-11-09 12:32 | PCM.PN ---
- General Info Date of Service: 11/09/18 Admission Dx/Problem (Free Text): cough, hypoxemia Subjective Update: still nasal discharge, no cp, no associated cough no fever has been off oxygen c/o nasal congestion, sinus pain, headache Functional Status: Reports: Tolerating Diet - Review of Systems General: Reports: Weakness. Denies: Fever HEENT: Reports: Headaches, Sinus Congestion, Rhinitis Pulmonary: Denies: Shortness of Breath Cardiovascular: Denies: Chest Pain Gastrointestinal: Reports: Abdominal Pain Musculoskeletal: Reports: Neck Pain Neurological: Reports: Confusion - Patient Data Vitals - Most Recent: Last Vital Signs Temp 36.3 C 11/09/18 08:05 Pulse 79 11/09/18 08:05 Resp 20 11/09/18 08:05 BP 156/60 H 11/09/18 08:05 Pulse Ox 98 11/09/18 08:05 Weight - Most Recent: 64.909 kg I&O - Last 24 Hours: Intake & Output 11/08/18 11/09/18 11/09/18 22:59 06:59 14:59 Intake Total 1212 200 200 Balance 1212 200 200 [place] Results Last 24 Hours: Microbiology 11/07/18 21:05 Aerobic Blood Culture - Preliminary Blood - Venous - Lab Draw NO GROWTH AFTER 1 DAY Anaerobic Blood Culture - Preliminary NO GROWTH AFTER 1 DAY 11/07/18 20:19 Aerobic Blood Culture - Preliminary Blood - Venous NO GROWTH AFTER 1 DAY Anaerobic Blood Culture - Preliminary NO GROWTH AFTER 1 DAY Med Orders - Current: Current Medications Acetaminophen (Tylenol) 650 mg PO Q4H PRN PRN Reason: Pain (mild 1-3 )/fever Last Admin: 11/08/18 20:36 Dose: 650 mg Diphenhydramine HCl (Benadryl) 25 mg PO BID [facility] Docusate Sodium (Colace) 100 mg PO DAILY PRN PRN Reason: Constipation Fluticasone Propionate (Flonase) 1 gm NASBOTH BID [facility] Heparin Sodium (Porcine) (Heparin Sodium) 5,000 units SUBCUT Q8H [facility] Last Admin: 11/09/18 10:38 Dose: 5,000 units Ceftriaxone Sodium 1 gm/ (Sodium Chloride) 50 mls @ 50 mls/hr IV Q24H [facility] Last Admin: 11/08/18 20:40 Dose: 50 mls/hr Lorazepam (Ativan) 0.5 mg PO DAILY [facility] Last Admin: 11/09/18 09:25 Dose: Not Given Meclizine HCl (Antivert) 25 mg PO TID PRN PRN Reason: Dizziness Atorvastatin 80 Mg (Tab Own Med) 0.5 each PO BEDTIME [facility] Last Admin: 11/08/18 20:37 Dose: 0.5 each Trazodone 50 Mg Tab (Own Med) 1 each PO BEDTIME PRN PRN Reason: Pain Last Admin: 11/08/18 22:14 Dose: 1 each Levothyroxine 50 Mcg (Tab Own Med) 1 each PO ACBREAKFAST [facility] Last Admin: 11/09/18 05:48 Dose: 1 each Furosemide 40 Mg Tab (Own Med) 1 each PO DAILY [facility] Last Admin: 11/09/18 09:26 Dose: 1 each Sertraline 25 Mg Tab (Own Med) 1 each PO DAILY [facility] Last Admin: 11/09/18 09:28 Dose: 1 each Amiodarone 200 Mg (Tab Own Med) 1 each PO DAILY [facility] Last Admin: 11/09/18 09:27 Dose: 1 each Omeprazole 20 Mg Cap (Own Med) 1 each PO ACDINNER [facility] Last Admin: 11/08/18 16:27 Dose: 1 each Aspirin 81 Mg Tab.Ec (Own Med) 81 each PO QID [facility] Last Admin: 11/09/18 09:26 Dose: 81 each Multivitamin Adults (50+ Tab Own Med) 1 each PO DAILY [facility] Last Admin: 11/09/18 09:27 Dose: 1 each Calcium Carb/Vitamin D3 600 Mg-800 Unit Tab Own Med 1 each PO DAILY [facility] Last Admin: 11/09/18 09:27 Dose: 1 each Senna/Docusate Sodium (Senna Plus) 1 tab PO DAILY [facility] Last Admin: 11/09/18 09:28 Dose: Not Given Sodium Chloride (Saline Flush) 10 ml FLUSH ASDIRECTED PRN PRN Reason: Keep Vein Open Last Admin: 11/08/18 20:40 Dose: 10 ml Tramadol HCl (Ultram) 50 mg PO Q6H PRN PRN Reason: Pain Last Admin: 11/09/18 11:13 Dose: 50 mg Discontinued Medications Amiodarone HCl (Cordarone) 200 mg PO DAILY [facility] Last Admin: 11/08/18 11:18 Dose: Not Given Aspirin (Aspirin) 81 mg PO QID [facility] Last Admin: 11/08/18 11:18 Dose: Not Given Aspirin (Halfprin) 81 mg PO QID [facility] Aspirin (Halfprin) 81 mg PO QID [facility] Last Admin: 11/08/18 14:41 Dose: Not Given Calcium Carbonate (Calcium Carbonate/Vitamin D 1250 Mg-200 Unit) 1 tab PO DAILY [facility] Last Admin: 11/08/18 14:41 Dose: Not Given Fluticasone Propionate (Flonase) 1 gm NASBOTH ONETIME ONE Stop: 11/07/18 22:07 Last Admin: 11/07/18 23:02 Dose: 2 spray Fluticasone Propionate (Flonase) 0 gm NASBOTH DAILY [facility] Last Admin: 11/09/18 09:25 Dose: 2 spray Furosemide (Lasix) 40 mg PO DAILY [facility] Stop: 11/08/18 10:30 Last Admin: 11/08/18 10:55 Dose: Not Given Heparin Sodium (Porcine) (Heparin Sodium) 5,000 units SUBCUT ONETIME ONE Stop: 11/08/18 01:01 Last Admin: 11/08/18 01:24 Dose: 5,000 units Potassium Chloride 10 meq/ (Premix) 100 mls @ 100 mls/hr IV ONETIME ONE Stop: 11/07/18 21:53 Last Admin: 11/07/18 21:01 Dose: 100 mls/hr Sodium Chloride (Normal Saline) 1,000 mls @ 25 mls/hr IV .BOLUS ONE Stop: 11/09/18 12:54 Last Infusion: 11/08/18 01:17 Dose: 25 mls/hr Ceftriaxone Sodium 1 gm/ (Sodium Chloride) 50 mls @ 50 mls/hr IV ONETIME ONE Stop: 11/08/18 01:59 Last Admin: 11/08/18 01:20 Dose: 50 mls/hr Iopamidol (Isovue-370 (76%)) 100 ml IVPUSH ONETIME ONE Stop: 11/07/18 22:13 Last Admin: 11/07/18 22:28 Dose: 100 ml Levothyroxine Sodium (Synthroid) 50 mcg PO ACBREAKFAST [facility] Last Admin: 11/08/18 06:15 Dose: 50 mcg Multivitamins (Thera) 1 each PO DAILY [facility] Last Admin: 11/08/18 14:41 Dose: Not Given Sertraline 25 Mg Tab (Own Med) 25 each PO DAILY [facility] Amiodarone 200 Mg (Tab Own Med) 200 each PO DAILY [facility] Trazodone 50 Mg Tab (Own Med) 50 each PO BEDTIME PRN PRN Reason: Pain Sertraline 25 Mg Tab (Own Med) 1 each PO DAILY [facility] Amiodarone 200 Mg (Tab Own Med) 1 each PO DAILY [facility] Potassium Chloride (Klor-Con 10) 20 meq PO ONETIME ONE Stop: 11/08/18 10:34 Last Admin: 11/08/18 11:00 Dose: 20 meq Sertraline HCl (Zoloft) 25 mg PO DAILY [facility] Last Admin: 11/08/18 11:18 Dose: Not Given Trazodone HCl (Trazodone) 50 mg PO BEDTIME PRN PRN Reason: Pain Last Admin: 11/08/18 01:24 Dose: 50 mg - Exam General: Alert, Oriented Neck: Supple Lungs: Clear to Auscultation, Normal Respiratory Effort Cardiovascular: Regular Rate, Regular Rhythm GI/Abdominal Exam: Normal Bowel Sounds, Soft, Non-Tender Extremities: No Pedal Edema Skin: Warm, Dry Psy/Mental Status: Alert, Normal Affect, Normal Mood - Problem List & Annotations (1) Nasal congestion SNOMED Code(s): 27091270 Code(s): R09.81 - NASAL CONGESTION Status: Acute Current Visit: Yes (2) Oxygen desaturation SNOMED Code(s): 375797957 Code(s): R09.02 - HYPOXEMIA Status: Acute Current Visit: Yes (3) Paroxysmal atrial fibrillation SNOMED Code(s): 016818693 Code(s): I48.0 - PAROXYSMAL ATRIAL FIBRILLATION Status: Acute Current Visit: Yes - Problem List Review Problem List Initiated/Reviewed/Updated: Yes - My Orders Last 24 Hours: My Active Orders 11/08/18 17:00 Patient's Own Medication [Ptom] 1 each PO ACDINNER 11/08/18 19:15 Sodium Chloride 0.9% [Saline Flush] 10 ml FLUSH ASDIRECTED PRN Convert IV to Saline Lock [OM.PC] Routine 11/09/18 12:11 diphenhydrAMINE [Benadryl] 25 mg PO BID 11/09/18 21:00 Fluticasone Propionate [Flonase] 1 gm NASBOTH BID - Plan Plan:: Ms. Emily [id number] y.o.female with medical history significant for hypertension, hyperlipidemia, and peripheral neuropathy, Paroxysmal A-fib,W as recently seen by EP cardiology and plan to have atrioventricular junctional ablation and implantation of permanent pacemaker placement and once she makes the decision they that will be done soon. She presented to ED with c/o of cold sweats, no chest pain, has had cold sx, congestion x 2-3 days, Not on coumadin at present due to h/o GI bleed NO sore throat. Nasal discharge has been yellow. Mild orthopnea, in ED 02 sat on RA was 87% and 95% with 1L NC. she is not on home oxygen In ED she CT chest with contrast No PE and no pneumonia. 1. Hypoxia of unknown etiology: -CT chest with contrast negative for PE or Pneumonia CXR also showed no Infiltrate, has normal white count did not require oxygen last night did not require oxygen on walking desat study on 11/09 2. Sinusitis -cont flonase add benadryl cont rocephin 2. Paroxysmal A-Fib: Seen by EP cardiology and will likely haveatrioventricular junctional ablation and implantation of permanent pacemaker placement, now will continue Amiodarone -She is not on ani-coagulation ( has H/O GI bleed) 3. Hypertension: Will continue Home medication 4. Hypthyroidism: Continue Levothyroxine 5. GI Prophylaxis: Continue omeprazole 20 mg daily 6. DVT prophylaxis: Continue SQ Heparin
[2018-11-09] MEDS: diphenhydrAMINE 25 MG Tab PO SCH ×2 (13:40→20:39)
[2018-11-09] MEDS ORDERED: ACETAMINOPHEN 650 MG PO PRN (17:14)
[2018-11-09] MEDS: cefTRIAXone 1 GM in Sodium Chloride 0.9% 50 ML IV SCH (20:34)
[2018-11-09] MEDS: traZODone 50 MG Tab **OWN MED PO PRN (21:38)
[2018-11-10] MEDS: Levothyroxine 50 MCG Tab **OWN MED PO SCH (06:03)
[2018-11-10 07:54] VITALS: BP 136/52
[2018-11-10] MEDS: Heparin Sodium 5,000 Units/ML Vial SUBCUT SCH (08:46)
[2018-11-10] MEDS: LORazepam 0.5 MG Tab PO SCH (08:48)
[2018-11-10] MEDS: Fluticasone Propionate Nasal Spray 16 GM Bottle NASBOTH SCH (08:49)
[2018-11-10] MEDS: diphenhydrAMINE 25 MG Tab PO SCH (08:49)
[2018-11-10] MEDS: CALCIUM CARBONATE PO SCH (08:51)
[2018-11-10] MEDS: [UNRECOGNIZED DRUG - OTHER] PO SCH (08:51)
[2018-11-10] MEDS: MULTIVITAMIN PO SCH (08:51)
[2018-11-10] MEDS: Aspirin 81 MG Tab.EC **OWN MED PO SCH ×2 (08:51→14:32)
[2018-11-10] MEDS: AMIODARONE 200 MG PO SCH (08:52)
--- NOTE | 2018-11-10 11:05 | PCM.DCSUM1 ---
Discharge Summary - Hospital Course Free Text/Narrative:: Ms. Emily Mcguire82 y.o.female with medical history significant for hypertension, hyperlipidemia, and peripheral neuropathy, Paroxysmal A-fib,W as recently seen by EP cardiology and plan to have atrioventricular junctional ablation and implantation of permanent pacemaker placement and once she makes the decision they that will be done soon. She presented to ED with c/o of cold sweats, no chest pain, has had cold sx, congestion x 2-3 days, Not on coumadin at present due to h/o GI bleed NO sore throat. Nasal discharge has been yellow. Mild orthopnea, in ED 02 sat on RA was 87% and 95% with 1L NC. she is not on home oxygen In ED she CT chest with contrast No PE and no pneumonia. 1. Hypoxia of unknown etiology: -CT chest with contrast negative for PE or Pneumonia CXR also showed no Infiltrate, has normal white count did not require oxygen last night did not require oxygen on walking desat study on 11/09 2. Sinusitis -cont flonase, benadryl was treated with rocephin discharge with levofloxacin 2. Paroxysmal A-Fib: Seen by EP cardiology and will likely haveatrioventricular junctional ablation and implantation of permanent pacemaker placement, now will continue Amiodarone -She is not on ani-coagulation ( has H/O GI bleed) 3. Hypertension: Will continue Home medication 4. Hypthyroidism: Continue Levothyroxine 5. GI Prophylaxis: Continue omeprazole 20 mg daily Diagnosis: Stroke: No - Discharge Data Discharge Date: 11/10/18 Discharge Disposition: Home, Self-Care 01 Condition: Stable - Discharge Diagnosis/Problem(s) (1) Nasal congestion SNOMED Code(s): 61229833 ICD Code: R09.81 - NASAL CONGESTION Status: Acute Current Visit: Yes (2) Oxygen desaturation SNOMED Code(s): 731696898 ICD Code: R09.02 - HYPOXEMIA Status: Acute Current Visit: Yes (3) Paroxysmal atrial fibrillation SNOMED Code(s): 645509019 ICD Code: I48.0 - PAROXYSMAL ATRIAL FIBRILLATION Status: Acute Current Visit: Yes (4) Sinusitis SNOMED Code(s): 84101236 ICD Code: J32.9 - CHRONIC SINUSITIS, UNSPECIFIED Status: Acute Current Visit: Yes - Patient Instructions Diet: Heart Healthy Diet Activity: As Tolerated - Discharge Plan *PRESCRIPTION DRUG MONITORING PROGRAM REVIEWED*: Not Applicable *COPY OF PRESCRIPTION DRUG MONITORING REPORT IN PATIENT VENICE: Not Applicable Prescriptions/Med Rec: Fluticasone Propionate [Flonase] 1 gm NASBOTH BID #1 bottle Levofloxacin 500 mg PO DAILY #5 tablet Home Medications: Home Meds Acetaminophen [Tylenol Arthritis Pain] 650 mg PO Q8H PRN 09/27/13 [History] Amiodarone HCl 200 mg PO DAILY 09/27/13 [History] Aspirin [Loida Chewable Aspirin] 81 mg PO QID 09/27/13 [History] Ca Carbonate/Vitamin D3/Vit K [Calcium + D Soft Chewable Tab] 1 each PO DAILY [History] Levothyroxine Sodium 50 mcg PO DAILY 09/27/13 [History] Multivitamin [Multi-Vitamin Daily] 1 tab PO DAILY 09/27/13 [History] Omeprazole 20 mg PO DAILY 09/27/13 [History] Sennosides/Docusate Sodium [Senna-Docusate Sodium] 1 tab PO DAILY 09/27/13 [ History] atorvaSTATin Calcium [Atorvastatin Calcium] 40 mg PO BEDTIME 09/27/13 [History] LORazepam 0.5 mg PO DAILY 12/03/15 [History] Furosemide [Lasix] 40 mg PO DAILY 06/24/17 [History] Meclizine [Antivert] 25 mg PO TID PRN 11/08/18 [History] Sertraline [Zoloft] 25 mg PO DAILY 11/08/18 [History] traMADol [Ultram] 50 mg PO Q6H PRN 11/08/18 [History] traZODone HCl [Trazodone HCl] 50 mg PO BEDTIME PRN 11/08/18 [History] Fluticasone Propionate [Flonase] 1 gm NASBOTH BID #1 bottle 11/10/18 [Rx] Levofloxacin 500 mg PO DAILY #5 tablet 11/10/18 [Rx] diphenhydrAMINE [Benadryl] 25 mg PO BID 2 Days tablet 11/10/18 [Rx] Patient Handouts: Hypoxia, Sinusitis, Adult Referrals: PCP,Not In Area [Primary Care Provider] - - Discharge Summary/Plan Comment DC Time >30 min.: No - General Info Date of Service: 11/10/18 - Review of Systems General: Denies: Fever, Weakness Pulmonary: Denies: Shortness of Breath Cardiovascular: Denies: Chest Pain Neurological: Denies: Confusion - Patient Data Vitals - Most Recent: Last Vital Signs Temp 36.4 C 11/10/18 07:53 Pulse 67 11/10/18 07:53 Resp 20 11/10/18 07:53 BP 136/52 L 11/10/18 07:53 Pulse Ox 96 11/10/18 07:53 Weight - Most Recent: 64.909 kg I&O - Last 24 hours: Intake & Output 11/09/18 11/10/18 11/10/18 22:59 06:59 14:59 Intake Total 264 250 Balance 264 250 [place]FINA Results - Last 24 hrs: Microbiology 11/07/18 21:05 Aerobic Blood Culture - Preliminary Blood - Venous - Lab Draw NO GROWTH AFTER 2 DAYS Anaerobic Blood Culture - Preliminary NO GROWTH AFTER 2 DAYS 11/07/18 20:19 Aerobic Blood Culture - Preliminary Blood - Venous NO GROWTH AFTER 2 DAYS Anaerobic Blood Culture - Preliminary NO GROWTH AFTER 2 DAYS Med Orders - Current: Current Medications Diphenhydramine HCl (Benadryl) 25 mg PO BID [facility] Last Admin: 11/10/18 08:49 Dose: 25 mg Docusate Sodium (Colace) 100 mg PO DAILY PRN PRN Reason: Constipation Fluticasone Propionate (Flonase) 0 gm NASBOTH BID [facility] Last Admin: 11/10/18 08:49 Dose: 2 spray Heparin Sodium (Porcine) (Heparin Sodium) 5,000 units SUBCUT Q8H [facility] Last Admin: 11/10/18 08:46 Dose: 5,000 units Ceftriaxone Sodium 1 gm/ (Sodium Chloride) 50 mls @ 50 mls/hr IV Q24H [facility] Last Admin: 11/09/18 20:34 Dose: 50 mls/hr Lorazepam (Ativan) 0.5 mg PO DAILY [facility] Last Admin: 11/10/18 08:48 Dose: Not Given Meclizine HCl (Antivert) 25 mg PO TID PRN PRN Reason: Dizziness Acetaminophen 650 Mg Er Tablets *Patient Own* 1 each PO Q4H PRN PRN Reason: Pain (mild 1-3 )/fever Last Admin: 11/09/18 18:57 Dose: 1 each Atorvastatin 80 Mg (Tab Own Med) 0.5 each PO BEDTIME [facility] Last Admin: 11/09/18 20:44 Dose: 0.5 each Trazodone 50 Mg Tab (Own Med) 1 each PO BEDTIME PRN PRN Reason: Pain Last Admin: 11/09/18 21:38 Dose: 1 each Levothyroxine 50 Mcg (Tab Own Med) 1 each PO ACBREAKFAST [facility] Last Admin: 11/10/18 06:03 Dose: 1 each Furosemide 40 Mg Tab (Own Med) 1 each PO DAILY [facility] Last Admin: 11/10/18 08:53 Dose: 1 each Sertraline 25 Mg Tab (Own Med) 1 each PO DAILY [facility] Last Admin: 11/10/18 08:52 Dose: 1 each Amiodarone 200 Mg (Tab Own Med) 1 each PO DAILY [facility] Last Admin: 11/10/18 08:52 Dose: 1 each Omeprazole 20 Mg Cap (Own Med) 1 each PO ACDINNER [facility] Last Admin: 11/09/18 16:39 Dose: 1 each Aspirin 81 Mg Tab.Ec (Own Med) 81 each PO QID [facility] Last Admin: 11/10/18 08:51 Dose: 81 each Multivitamin Adults (50+ Tab Own Med) 1 each PO DAILY [facility] Last Admin: 11/10/18 08:51 Dose: 1 each Calcium Carb/Vitamin D3 600 Mg-800 Unit Tab Own Med 1 each PO DAILY [facility] Last Admin: 11/10/18 08:51 Dose: 1 each Senna/Docusate Sodium (Senna Plus) 1 tab PO DAILY [facility] Last Admin: 11/10/18 08:49 Dose: Not Given Sodium Chloride (Saline Flush) 10 ml FLUSH ASDIRECTED PRN PRN Reason: Keep Vein Open Last Admin: 11/08/18 20:40 Dose: 10 ml Tramadol HCl (Ultram) 50 mg PO Q6H PRN PRN Reason: Pain Last Admin: 11/09/18 11:13 Dose: 50 mg Discontinued Medications Acetaminophen (Tylenol) 650 mg PO Q4H PRN PRN Reason: Pain (mild 1-3 )/fever Last Admin: 11/08/18 20:36 Dose: 650 mg Amiodarone HCl (Cordarone) 200 mg PO DAILY [facility] Last Admin: 11/08/18 11:18 Dose: Not Given Aspirin (Aspirin) 81 mg PO QID [facility] Last Admin: 11/08/18 11:18 Dose: Not Given Aspirin (Halfprin) 81 mg PO QID [facility] Aspirin (Halfprin) 81 mg PO QID [facility] Last Admin: 11/08/18 14:41 Dose: Not Given Calcium Carbonate (Calcium Carbonate/Vitamin D 1250 Mg-200 Unit) 1 tab PO DAILY [facility] Last Admin: 11/08/18 14:41 Dose: Not Given Fluticasone Propionate (Flonase) 1 gm NASBOTH ONETIME ONE Stop: 11/07/18 22:07 Last Admin: 11/07/18 23:02 Dose: 2 spray Fluticasone Propionate (Flonase) 0 gm NASBOTH DAILY [facility] Last Admin: 11/09/18 09:25 Dose: 2 spray Furosemide (Lasix) 40 mg PO DAILY [facility] Stop: 11/08/18 10:30 Last Admin: 11/08/18 10:55 Dose: Not Given Heparin Sodium (Porcine) (Heparin Sodium) 5,000 units SUBCUT ONETIME ONE Stop: 11/08/18 01:01 Last Admin: 11/08/18 01:24 Dose: 5,000 units Potassium Chloride 10 meq/ (Premix) 100 mls @ 100 mls/hr IV ONETIME ONE Stop: 11/07/18 21:53 Last Admin: 11/07/18 21:01 Dose: 100 mls/hr Sodium Chloride (Normal Saline) 1,000 mls @ 25 mls/hr IV .BOLUS ONE Stop: 11/09/18 12:54 Last Infusion: 11/08/18 01:17 Dose: 25 mls/hr Ceftriaxone Sodium 1 gm/ (Sodium Chloride) 50 mls @ 50 mls/hr IV ONETIME ONE Stop: 11/08/18 01:59 Last Admin: 11/08/18 01:20 Dose: 50 mls/hr Iopamidol (Isovue-370 (76%)) 100 ml IVPUSH ONETIME ONE Stop: 11/07/18 22:13 Last Admin: 11/07/18 22:28 Dose: 100 ml Levothyroxine Sodium (Synthroid) 50 mcg PO ACBREAKFAST [facility] Last Admin: 11/08/18 06:15 Dose: 50 mcg Multivitamins (Thera) 1 each PO DAILY [facility] Last Admin: 11/08/18 14:41 Dose: Not Given Sertraline 25 Mg Tab (Own Med) 25 each PO DAILY [facility] Amiodarone 200 Mg (Tab Own Med) 200 each PO DAILY [facility] Trazodone 50 Mg Tab (Own Med) 50 each PO BEDTIME PRN PRN Reason: Pain Sertraline 25 Mg Tab (Own Med) 1 each PO DAILY [facility] Amiodarone 200 Mg (Tab Own Med) 1 each PO DAILY [facility] Potassium Chloride (Klor-Con 10) 20 meq PO ONETIME ONE Stop: 11/08/18 10:34 Last Admin: 11/08/18 11:00 Dose: 20 meq Sertraline HCl (Zoloft) 25 mg PO DAILY [facility] Last Admin: 11/08/18 11:18 Dose: Not Given Trazodone HCl (Trazodone) 50 mg PO BEDTIME PRN PRN Reason: Pain Last Admin: 11/08/18 01:24 Dose: 50 mg - Exam General: Reports: Alert, Oriented Neck: Reports: Supple Lungs: Reports: Clear to Auscultation, Normal Respiratory Effort Cardiovascular: Reports: Regular Rate, Regular Rhythm Extremities: No Pedal Edema Skin: Reports: Warm, Dry Neurological: Reports: No New Focal Deficit Psy/Mental Status: Reports: Alert, Normal Affect, Normal Mood
== END 2018-11-10 11:55 | disposition home or self-care (01) ==
LOC: DL.ED 20:05 → UNDOADMOB 23:50 → DL.MS 23:50
PROVIDERS: ADMIT Internal Medicine Nephrology; ATTEND Internal Medicine Nephrology
DX: R09.02 Hypoxemia (principal); R06.02 Shortness of breath; J32.9 Chronic sinusitis, unspecified; I48.0 Paroxysmal atrial fibrillation; I10 Essential (primary) hypertension; E78.5 Hyperlipidemia, unspecified; G62.9 Polyneuropathy, unspecified; E03.9 Hypothyroidism, unspecified; Z79.890 Hormone replacement therapy; Z88.0 Allergy status to penicillin; Z88.2 Allergy status to sulfonamides
CPT/HCPCS: 36415; 71045; 71260; 80048; 80053; 81003; 83605; 83735; 83880; 84484; 85025; 85379; 85610; 87040; 87804; 93005; 94618; 96365; 96366; 96367; 96372; 99217; 99218; 99225; 99284; 99285; A9270; G0378; J0696; J1644; J3480; J7030; J7050; Q9967

== ENCOUNTER 2019-01-26 16:13 | Emergency (ER) | payer MEDICARE, BC ==
--- NOTE | 2019-01-26 16:45 | EDM.PDOC ---
ED HPI GENERAL MEDICAL PROBLEM - General Chief Complaint: Cardiovascular Problem Stated Complaint: Dizziness, possible A-fib Time Seen by Provider: 01/26/19 16:45 Source of Information: Reports: Patient, Family (daughter, ), Old Records , RN, RN Notes Reviewed History Limitations: Reports: No Limitations - History of Present Illness INITIAL COMMENTS - FREE TEXT/NARRATIVE: Pt presents to ER with c/o a dizzy spell and being diaphoretic twice today. She was worried because she felt very similar to when she had "rapid A-fib" back before she had a cardiac ablation and pacemaker. She denies syncope, LOC, palpitations, chest pain, N/V, fever, chills, cough, or shortness of breath. She admits to a few other dizzy spells over the past few days and has taken some Meclizine because she thought it was a return of vertigo. Patient states that she has had diarrhea stools for a few weeks, but didn't have diarrhea today. Had pacemaker, ablasion, and surgery to repair a whole in her heart within the last few months. Patient describes the dizziness as the room appearing wavey with movement, no not associated with nausea. She also report that her tongue feel very dry today. Onset: Sudden Onset Date: 01/26/19 Duration: Resolved Prior to Arrival Location: Reports: Generalized Severity: Moderate Improves with: Reports: None Worsens with: Reports: None Associated Symptoms: Reports: No Other Symptoms - Related Data Allergies Allergy/AdvReac Type Severity Reaction Status Date / Time Penicillins Allergy Airway Verified 11/26/18 19:53 Tightness Sulfa (Sulfonamide Allergy Airway Verified 11/26/18 19:53 Antibiotics) Tightness Home Meds: Home Meds Acetaminophen [Tylenol Arthritis Pain] 650 mg PO Q8H PRN 09/27/13 [History] Amiodarone HCl 200 mg PO DAILY 09/27/13 [History] Aspirin [Loida Chewable Aspirin] 81 mg PO QID 09/27/13 [History] Ca Carbonate/Vitamin D3/Vit K [Calcium + D Soft Chewable Tab] 1 each PO DAILY [History] Levothyroxine Sodium 50 mcg PO DAILY 09/27/13 [History] Multivitamin [Multi-Vitamin Daily] 1 tab PO DAILY 09/27/13 [History] Omeprazole 20 mg PO DAILY 09/27/13 [History] Sennosides/Docusate Sodium [Senna-Docusate Sodium] 1 tab PO DAILY 09/27/13 [ History] atorvaSTATin Calcium [Atorvastatin Calcium] 40 mg PO BEDTIME 09/27/13 [History] LORazepam 0.5 mg PO DAILY 12/03/15 [History] Furosemide [Lasix] 40 mg PO DAILY 06/24/17 [History] Meclizine [Antivert] 25 mg PO TID PRN 11/08/18 [History] Sertraline [Zoloft] 25 mg PO DAILY 11/08/18 [History] traMADol [Ultram] 50 mg PO Q6H PRN 11/08/18 [History] traZODone HCl [Trazodone HCl] 50 mg PO BEDTIME PRN 11/08/18 [History] Fluticasone Propionate [Flonase] 1 gm NASBOTH BID #1 bottle 11/10/18 [Rx] Levofloxacin 500 mg PO DAILY #5 tablet 11/10/18 [Rx] diphenhydrAMINE [Benadryl] 25 mg PO BID 2 Days tablet 11/10/18 [Rx] Past Medical History HEENT History: Reports: Hard of Hearing, Impaired Vision Cardiovascular History: Reports: Afib, Heart Failure Other Cardiovascular History: pacemaker consult pending placement Respiratory History: Reports: None Gastrointestinal History: Reports: GERD Genitourinary History: Reports: None 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: Musculoskeletal History: Reports: Back Pain, Chronic Neurological History: Reports: Vertigo Psychiatric History: Reports: Anxiety Endocrine/Metabolic History: Reports: Hypothyroidism Hematologic History: Reports: None Immunologic History: Reports: None Oncologic (Cancer) History: Reports: None Dermatologic History: Reports: None - Past Surgical History Head Surgeries/Procedures: Reports: None Social & Family History - Family History Family Medical History: Noncontributory - Caffeine Use Caffeine Use: Reports: Coffee - Living Situation & Occupation Living situation: Reports: , with Spouse Occupation: Retired ED ROS GENERAL - Review of Systems Review Of Systems: ROS reveals no pertinent complaints other than HPI. ED EXAM, GENERAL - Physical Exam Exam: See Below Exam Limited By: No Limitations General Appearance: Alert, WD/WN, No Apparent Distress, Anxious Eye Exam: Bilateral Eye: EOMI, Normal Inspection (No nystagmus), PERRL Ears: Normal External Exam, Normal Canal, Hearing Grossly Normal, Normal TMs Nose: Normal Inspection, Normal Mucosa, No Blood Throat/Mouth: Normal Lips, Normal Teeth, Normal Gums, Normal Oropharynx, Normal Voice, No Airway Compromise, Other (Dry oral mucosa) Head: Atraumatic, Normocephalic Neck: Normal Inspection, Supple, Non-Tender, Full Range of Motion Respiratory/Chest: No Respiratory Distress, Lungs Clear, Normal Breath Sounds, No Accessory Muscle Use, Chest Non-Tender Cardiovascular: Normal Peripheral Pulses, Regular Rate, Rhythm, No Edema, No Gallop, No JVD, No Murmur, No Rub GI/Abdominal: Normal Bowel Sounds, Soft, Non-Tender, No Organomegaly, No Distention, No Abnormal Bruit, No Mass Back Exam: Normal Inspection Extremities: Normal Inspection, Normal Range of Motion, Non-Tender, Normal Capillary Refill, No Pedal Edema Neurological: Alert, Oriented, CN II-XII Intact, Normal Cognition, Normal Gait, No Motor/Sensory Deficits Psychiatric: Normal Affect, Anxious Skin Exam: Warm, Dry, Intact, Normal Color, No Rash EKG INTERPRETATION EKG Date: 01/26/19 Time: 16:27 Rhythm: Other (paced) Rate (Beats/Min): 67 Comparison: Change From Previous EKG EKG Interpretation Comments: PACED Course - Vital Signs Last Recorded V/S: Last Vital Signs Temp 35.9 C 01/26/19 16:44 Pulse 65 01/26/19 16:44 Resp 15 01/26/19 16:44 BP Pulse Ox 99 01/26/19 16:44 Orthostatic Blood Pressure [ 146/78 Sitting] Orthostatic Blood Pressure [ 142/78 Standing] Orthostatic Blood Pressure [ 109/78 Supine] No orthostatic dizziness. - Orders/Labs/Meds Orders: Active Orders 24 hr Category Date Time Status EKG 12 Lead [EKG Documentation Completion] [RC] STAT Care 01/26/19 17:14 Active Orthostatic Vital Signs [RC] ASDIRECTED Care 01/26/19 16:59 Active Sodium Chloride 0.9% [Normal Saline] 250 ml Med 01/26/19 18:00 Active IV ASDIRECTED Medication Orders Sodium Chloride (Normal Saline) 250 mls @ 500 mls/hr IV ASDIRECTED SJ Last Admin: 01/26/19 17:58 Dose: 500 mls/hr Labs: Laboratory Tests 01/26/19 01/26/19 01/26/19 Range/Units 16:26 16:50 16:50 WBC 6.6 (5.0-10.0) 10^3/uL RBC 3.88 L (4.2-5.4) 10^6/uL Hgb 12.1 (12.0-16.0) g/dL Hct 37.8 (37.0-47.0) % MCV 97.4 (80-100) fL MCH 31.2 (27.0-34.0) pg MCHC 32.0 L (33.0-35.0) g/dL Plt Count 196 (150-450) 10^3/uL Neut % (Auto) 65.5 (42.2-75.2) % Lymph % (Auto) 23.5 (20.5-50.1) % [place] % (Auto) 8.0 (2-8) % Eos % (Auto) 2.7 (1.0-3.0) % Baso % (Auto) 0.3 (0.0-1.0) % Sodium 141 (135-145) mmol/L Potassium 3.6 (3.6-5.0) mmol/L Chloride 104 (101-111) mmol/L Carbon Dioxide 27.0 (21.0-31.0) mmol/L Anion Gap 13.6 BUN 11 (7-18) mg/dL Creatinine 0.7 (0.6-1.3) mg/dL Est Cr Clr Drug Dosing TNP Estimated GFR (MDRD) > 60 BUN/Creatinine Ratio 15.71 Glucose 97 (74-105) mg/dL POC Glucose 81 L (83-110) mg/dl Calcium 8.9 (8.4-10.2) mg/dl Total Bilirubin 0.6 (0.2-1.0) mg/dL AST 18 (10-42) IU/L ALT 15 (10-60) IU/L Alkaline Phosphatase 69 (42-121) IU/L Troponin I 0.01 (0.00-0.08) ng/mL B-Natriuretic Peptide (0-100) pg/ml Total Protein 6.6 L (6.7-8.2) g/dl Albumin 3.9 (3.2-5.5) g/dl Globulin 2.7 Albumin/Globulin Ratio 1.44 Urine Color (YELLOW) Urine Appearance (CLEAR) Urine pH (5.0-9.0) Ur Specific [place] (1.005-1.030) Urine Protein (NEGATIVE) Urine Glucose (UA) (NEGATIVE) Urine Ketones (NEGATIVE) Urine Occult Blood (NEGATIVE) Urine Nitrite (NEGATIVE) Urine Bilirubin (NEGATIVE) Urine Urobilinogen (0.2-1.0) mg/dL Ur Leukocyte Esterase (NEGATIVE) 01/26/19 01/26/19 Range/Units 16:50 17:14 WBC (5.0-10.0) 10^3/uL RBC (4.2-5.4) 10^6/uL Hgb (12.0-16.0) g/dL Hct (37.0-47.0) % MCV (80-100) fL MCH (27.0-34.0) pg MCHC (33.0-35.0) g/dL Plt Count (150-450) 10^3/uL Neut % (Auto) (42.2-75.2) % Lymph % (Auto) (20.5-50.1) % [place] % (Auto) (2-8) % Eos % (Auto) (1.0-3.0) % Baso % (Auto) (0.0-1.0) % Sodium (135-145) mmol/L Potassium (3.6-5.0) mmol/L Chloride (101-111) mmol/L Carbon Dioxide (21.0-31.0) mmol/L Anion Gap BUN (7-18) mg/dL Creatinine (0.6-1.3) mg/dL Est Cr Clr Drug Dosing Estimated GFR (MDRD) BUN/Creatinine Ratio Glucose (74-105) mg/dL POC Glucose (83-110) mg/dl Calcium (8.4-10.2) mg/dl Total Bilirubin (0.2-1.0) mg/dL AST (10-42) IU/L ALT (10-60) IU/L Alkaline Phosphatase (42-121) IU/L Troponin I (0.00-0.08) ng/mL B-Natriuretic Peptide 44 (0-100) pg/ml Total Protein (6.7-8.2) g/dl Albumin (3.2-5.5) g/dl Globulin Albumin/Globulin Ratio Urine Color Yellow (YELLOW) Urine Appearance Clear (CLEAR) Urine pH 6.0 (5.0-9.0) Ur Specific [place] 1.010 (1.005-1.030) Urine Protein Negative (NEGATIVE) Urine Glucose (UA) Negative (NEGATIVE) Urine Ketones Negative (NEGATIVE) Urine Occult Blood Negative (NEGATIVE) Urine Nitrite Negative (NEGATIVE) Urine Bilirubin Negative (NEGATIVE) Urine Urobilinogen 0.2 (0.2-1.0) mg/dL Ur Leukocyte Esterase Negative (NEGATIVE) Meds: Medications Generic Name Dose Route Start Last Admin Trade Name Freq PRN Reason Stop Dose Admin Sodium Chloride 250 mls @ 500 mls/hr 01/26/19 18:00 01/26/19 17:58 Normal Saline IV 500 mls/hr ASDIRECTED SJ Administration - Radiology Interpretation Free Text/Narrative:: CXR: pacer and wires since last CXR, no acute process per Rad. report. Departure - Departure Time of Disposition: 18:33 Disposition: Home, Self-Care 01 Condition: Good Clinical Impression: Dehydration, Dizziness Instructions: Dehydration, Elderly, [id number], Dizziness Forms: ED Department Discharge Additional Instructions: Follow up in clinic if not improved in 1 to 2 days. - My Orders Last 24 Hours: My Active Orders 01/26/19 16:59 Orthostatic Vital Signs [RC] ASDIRECTED 01/26/19 17:14 EKG 12 Lead [EKG Documentation Completion] [RC] STAT 01/26/19 18:00 Sodium Chloride 0.9% [Normal Saline] 250 ml IV ASDIRECTED - Assessment/Plan Last 24 Hours: My Active Orders 01/26/19 16:59 Orthostatic Vital Signs [RC] ASDIRECTED 01/26/19 17:14 EKG 12 Lead [EKG Documentation Completion] [RC] STAT 01/26/19 18:00 Sodium Chloride 0.9% [Normal Saline] 250 ml IV ASDIRECTED
--- NOTE | 2019-01-26 17:10 | CR ---
Clinical history: 83-year-old female complaining of dizziness. Interpretation: Cardiac pacer new since 26 November 2018 film (leads intact). External phototypesetting equipment monitor leads and evidence of lower cervical spine fusion. Normal cardiac silhouette without cephalization of vascular flow, alveolar edema or dependent pleural fluid accumulation. No new lung mass, hilar lymphadenopathy or focal lobar pneumonia. No pneumothorax. No atelectasis/collapse. CONCLUSION: Cardiac pacemaker. No acute new cardiopulmonary abnormality.
[2019-01-26 17:23] LABS: ANION GAP 13.6; CHLORIDE,CL 104 mmol/L (101-111); SODIUM,NA 141 mmol/L (135-145)
[2019-01-26] MEDS ORDERED: Sodium Chloride 0.9% 250 ML IV SCH (18:00)
== END 2019-01-26 18:47 | disposition home or self-care (01) ==
LOC: DL.ED 16:13
DX: E86.0 Dehydration (principal); I48.91 Unspecified atrial fibrillation; I50.9 Heart failure, unspecified; K21.9 Gastro-esophageal reflux disease without esophagitis; F41.9 Anxiety disorder, unspecified; E03.9 Hypothyroidism, unspecified; Z79.82 Long term (current) use of aspirin; Z79.899 Other long term (current) drug therapy; Z88.0 Allergy status to penicillin; Z88.2 Allergy status to sulfonamides
CPT/HCPCS: 36415; 71045; 80053; 81003; 82962; 83880; 84484; 85025; 93005; 96360; 99285; J7050

== ENCOUNTER 2019-02-18 14:10 | Emergency (ER) | payer MEDICARE, BC ==
[2019-02-18] MEDS ORDERED: Sodium Chloride 0.9% 10 ML Syringe FLUSH PRN (14:24)
--- NOTE | 2019-02-18 14:40 | EDM.PDOC ---
ED HPI GENERAL MEDICAL PROBLEM - General Chief Complaint: Syncope Stated Complaint: AMBULANCE Time Seen by Provider: 02/18/19 14:16 Source of Information: Reports: Patient, EMS, EMS Notes Reviewed, Family, RN, RN Notes Reviewed History Limitations: Reports: No Limitations - History of Present Illness INITIAL COMMENTS - FREE TEXT/NARRATIVE: Pt to ER per [facility] with c/o dizziness, nausea, and near syncope. Patient states she was getting her hair done and suddenly felt very dizzy and she thinks she "blacked out". Daughter states the patient was recently hospitalized in with dehydration. Has a hx of atrial fib with pacemaker, ablation, and "watchman's procedure". Patient denies any vomiting. States she had some diarrhea earlier in the week. Admits to SOB, denies chest pain. Denies fever. Admits to chills. Denies visual disturbances. Onset: Today, Sudden - Related Data Allergies Allergy/AdvReac Type Severity Reaction Status Date / Time Penicillins Allergy Airway Verified 11/26/18 19:53 Tightness Sulfa (Sulfonamide Allergy Airway Verified 11/26/18 19:53 Antibiotics) Tightness Home Meds: Home Meds Acetaminophen [Tylenol Arthritis Pain] 650 mg PO Q8H PRN 09/27/13 [History] Amiodarone HCl 200 mg PO DAILY 09/27/13 [History] Aspirin [Loida Chewable Aspirin] 81 mg PO QID 09/27/13 [History] Ca Carbonate/Vitamin D3/Vit K [Calcium + D Soft Chewable Tab] 1 each PO DAILY [History] Levothyroxine Sodium 50 mcg PO DAILY 09/27/13 [History] Multivitamin [Multi-Vitamin Daily] 1 tab PO DAILY 09/27/13 [History] Omeprazole 20 mg PO DAILY 09/27/13 [History] Sennosides/Docusate Sodium [Senna-Docusate Sodium] 1 tab PO DAILY 09/27/13 [ History] atorvaSTATin Calcium [Atorvastatin Calcium] 40 mg PO BEDTIME 09/27/13 [History] LORazepam 0.5 mg PO DAILY 12/03/15 [History] Furosemide [Lasix] 40 mg PO DAILY 06/24/17 [History] Meclizine [Antivert] 25 mg PO TID PRN 11/08/18 [History] Sertraline [Zoloft] 25 mg PO DAILY 11/08/18 [History] traMADol [Ultram] 50 mg PO Q6H PRN 11/08/18 [History] traZODone HCl [Trazodone HCl] 50 mg PO BEDTIME PRN 11/08/18 [History] Fluticasone Propionate [Flonase] 1 gm NASBOTH BID #1 bottle 11/10/18 [Rx] Levofloxacin 500 mg PO DAILY #5 tablet 11/10/18 [Rx] diphenhydrAMINE [Benadryl] 25 mg PO BID 2 Days tablet 11/10/18 [Rx] Past Medical History HEENT History: Reports: Hard of Hearing, Impaired Vision Cardiovascular History: Reports: Afib, Heart Failure Other Cardiovascular History: pacemaker consult pending placement Respiratory History: Reports: None Gastrointestinal History: Reports: GERD Genitourinary History: Reports: None 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: Musculoskeletal History: Reports: Back Pain, Chronic Neurological History: Reports: Vertigo Psychiatric History: Reports: Anxiety Endocrine/Metabolic History: Reports: Hypothyroidism Hematologic History: Reports: None Immunologic History: Reports: None Oncologic (Cancer) History: Reports: None Dermatologic History: Reports: None - Past Surgical History Head Surgeries/Procedures: Reports: None Social & Family History - Family History Family Medical History: Noncontributory - Caffeine Use Caffeine Use: Reports: Coffee - Living Situation & Occupation Living situation: Reports: , with Spouse Occupation: Retired ED ROS GENERAL - Review of Systems Review Of Systems: ROS reveals no pertinent complaints other than HPI. ED EXAM, DIZZINESS - Physical Exam Exam: See Below General Appearance: Alert, WD/WN, Anxious, Mild Distress Eye Exam: Bilateral Eye: EOMI, Normal Inspection, PERRL (2 brisk) Ears: Normal External Exam, Hearing Grossly Normal Course - Vital Signs Last Recorded V/S: Last Vital Signs Temp 98.6 F 02/19/19 00:21 Pulse 68 02/19/19 00:21 Resp 18 02/19/19 00:21 BP 126/52 L 02/19/19 00:21 Pulse Ox 95 02/19/19 00:21 - Orders/Labs/Meds Labs: Laboratory Tests 02/18/19 02/18/19 02/18/19 Range/Units 14:28 14:28 14:28 WBC 7.8 (5.0-10.0) 10^3/uL RBC 4.17 L (4.2-5.4) 10^6/uL Hgb 12.9 (12.0-16.0) g/dL Hct 39.9 (37.0-47.0) % MCV 95.7 (80-100) fL MCH 30.9 (27.0-34.0) pg MCHC 32.3 L (33.0-35.0) g/dL Plt Count 193 (150-450) 10^3/uL Neut % (Auto) 65.6 (42.2-75.2) % Lymph % (Auto) 23.2 (20.5-50.1) % [place] % (Auto) 8.1 H (2-8) % Eos % (Auto) 2.7 (1.0-3.0) % Baso % (Auto) 0.4 (0.0-1.0) % PT 9.1 (9.0-12.0) SEC INR 0.9 (0.9-1.2) Sodium 139 (135-145) mmol/L Potassium 3.8 (3.6-5.0) mmol/L Chloride 104 (101-111) mmol/L Carbon Dioxide 25.0 (21.0-31.0) mmol/L Anion Gap 13.8 BUN 10 (7-18) mg/dL Creatinine 0.6 (0.6-1.3) mg/dL Est Cr Clr Drug Dosing 61.68 mL/min Estimated GFR (MDRD) > 60 BUN/Creatinine Ratio 16.66 Glucose 102 (74-105) mg/dL POC Glucose (83-110) mg/dl Calcium 9.2 (8.4-10.2) mg/dl Total Bilirubin 0.5 (0.2-1.0) mg/dL AST 22 (10-42) IU/L ALT 18 (10-60) IU/L Alkaline Phosphatase 79 (42-121) IU/L Troponin I < 0.02 (0.00-0.02) ng/ml B-Natriuretic Peptide 130 H (0-100) pg/ml Total Protein 7.3 (6.7-8.2) g/dl Albumin 4.3 (3.2-5.5) g/dl Globulin 3.0 Albumin/Globulin Ratio 1.43 Urine Color (YELLOW) Urine Appearance (CLEAR) Urine pH (5.0-9.0) Ur Specific [place] (1.005-1.030) Urine Protein (NEGATIVE) Urine Glucose (UA) (NEGATIVE) Urine Ketones (NEGATIVE) Urine Occult Blood (NEGATIVE) Urine Nitrite (NEGATIVE) Urine Bilirubin (NEGATIVE) Urine Urobilinogen (0.2-1.0) mg/dL Ur Leukocyte Esterase (NEGATIVE) Urine RBC /HPF Urine WBC (0-5/HPF) /HPF Ur Epithelial Cells (NOT SEEN) /HPF Urine Bacteria (0-FEW/HPF) /HPF Urine Mucus (NOT SEEN) /LPF 02/18/19 02/18/19 02/18/19 Range/Units 14:37 14:40 23:15 WBC (5.0-10.0) 10^3/uL RBC (4.2-5.4) 10^6/uL Hgb 12.3 (12.0-16.0) g/dL Hct 38.0 (37.0-47.0) % MCV (80-100) fL MCH (27.0-34.0) pg MCHC (33.0-35.0) g/dL Plt Count (150-450) 10^3/uL Neut % (Auto) (42.2-75.2) % Lymph % (Auto) (20.5-50.1) % [place] % (Auto) (2-8) % Eos % (Auto) (1.0-3.0) % Baso % (Auto) (0.0-1.0) % PT (9.0-12.0) SEC INR (0.9-1.2) Sodium (135-145) mmol/L Potassium (3.6-5.0) mmol/L Chloride (101-111) mmol/L Carbon Dioxide (21.0-31.0) mmol/L Anion Gap BUN (7-18) mg/dL Creatinine (0.6-1.3) mg/dL Est Cr Clr Drug Dosing mL/min Estimated GFR (MDRD) BUN/Creatinine Ratio Glucose (74-105) mg/dL POC Glucose 99 (83-110) mg/dl Calcium (8.4-10.2) mg/dl Total Bilirubin (0.2-1.0) mg/dL AST (10-42) IU/L ALT (10-60) IU/L Alkaline Phosphatase (42-121) IU/L Troponin I (0.00-0.02) ng/ml B-Natriuretic Peptide (0-100) pg/ml Total Protein (6.7-8.2) g/dl Albumin (3.2-5.5) g/dl Globulin Albumin/Globulin Ratio Urine Color Yellow (YELLOW) Urine Appearance Slightly cloudy (CLEAR) Urine pH 5.0 (5.0-9.0) Ur Specific [place] <= 1.005 (1.005-1.030) Urine Protein Negative (NEGATIVE) Urine Glucose (UA) Negative (NEGATIVE) Urine Ketones Negative (NEGATIVE) Urine Occult Blood Trace-intact H (NEGATIVE) Urine Nitrite Negative (NEGATIVE) Urine Bilirubin Negative (NEGATIVE) Urine Urobilinogen 0.2 (0.2-1.0) mg/dL Ur Leukocyte Esterase Negative (NEGATIVE) Urine RBC 0-5 /HPF Urine WBC Not seen (0-5/HPF) /HPF Ur Epithelial Cells Rare (NOT SEEN) /HPF Urine Bacteria Rare (0-FEW/HPF) /HPF Urine Mucus Rare (NOT SEEN) /LPF Meds: Medications Discontinued Medications Generic Name Dose Route Start Last Admin Trade Name Freq PRN Reason Stop Dose Admin Acetaminophen 650 mg 02/18/19 19:15 02/18/19 19:26 Tylenol PO 02/18/19 19:16 650 mg NOW ONE Administration Ondansetron HCl 4 mg 02/18/19 16:22 02/18/19 16:44 Zofran IV 02/18/19 16:23 4 mg ONETIME ONE Administration Sodium Chloride 10 ml 02/18/19 14:24 02/18/19 15:13 Saline Flush FLUSH 10 ml ASDIRECTED PRN Administration Keep Vein Open Tramadol HCl 50 mg 02/18/19 22:16 02/18/19 22:34 Ultram PO 02/18/19 22:17 50 mg ONETIME ONE Administration - Radiology Interpretation Free Text/Narrative:: Head CT wo contrast: Microvascular ischemic changes. No intracranial mass, hydrocephalus, or bleed. Chest xray: No acute cardiopulmonary abnormality See rad report - Re-Assessments/Exams Free Text/Narrative Re-Assessment/Exam: 02/23/19 03:48 Patient care passed on to Dr. Abreu until patient can be transferred. Departure - Departure Time of Disposition: 00:52 Disposition: DC/Tfer to Acute Hospital 02 Condition: Fair Clinical Impression: Dizziness Headache Qualifiers: Headache type: unspecified Headache chronicity pattern: acute headache Intractability: intractable Qualified Code(s): R51 - Headache - Discharge Information *PRESCRIPTION DRUG MONITORING PROGRAM REVIEWED*: No *COPY OF PRESCRIPTION DRUG MONITORING REPORT IN PATIENT VENICE: No Referrals: Camron Rodriguez MD [Primary Care Provider] - Forms: ED Department Discharge
--- NOTE | 2019-02-18 15:07 | CR ---
Clinical history: 83-year-old female complaining of chest pain. Hypertension, nausea, dizziness and syncopal episode. Interpretation: Upright AP portable chest film stable and relatively unchanged compared directly 26 Jan 2019 exam. Cardiac pacemaker (leads intact and unchanged) this elderly female who is had previous lower cervical spinal fusion and open orthopedic fixation distal left humeral fracture. No cephalization of vascular flow, signs of alveolar edema or dependent pleural fluid accumulation. No new lung mass hilar lymphadenopathy or focal lobar pneumonia. No pneumothorax. CONCLUSION: No acute cardiopulmonary abnormality.
[2019-02-18 15:13] LABS: ANION GAP 13.8; CHLORIDE,CL 104 mmol/L (101-111); SODIUM,NA 139 mmol/L (135-145)
--- NOTE | 2019-02-18 15:13 | CT ---
Clinical history: 83-year-old hypertensive female with nausea, dizziness and syncopal episode. Historically "low hemoglobin". Cardiac pacemaker. No known trauma. Scan technique: Volume acquisition of data emergency unenhanced CT scan of the head and brain obtained while patient was lying supine on the Siemens multi slice scanner [place], [place]. All data archived in the PACS system for storage, reformatting axial/sagittal/coronal planes and study. Comparison CT scan head 27 September 2013. Interpretation: 1. Uniformly thick bony calvarium without sign of skull fracture, underlying brain contusion or epidural/subdural hematoma. 2. Scattered microvascular ischemic changes periventricular white matter. 3. No sign of acute intracerebral/intraventricular/subarachnoid bleed. 4. Mirror-image normal ventricular system (no hydrocephalus). Physiologic pineal and symmetric choroid plexus calcifications. 5. No supratentorial or posterior fossa mass lesion. 6. Symmetric clear pneumatization of the paranasal and mastoid sinuses. CONCLUSION: Microvascular ischemic changes. No intracranial mass, hydrocephalus or bleed.
[2019-02-18] MEDS ORDERED: Ondansetron 4 MG/2 ML SDV IV ONE (16:22)
[2019-02-18] MEDS ORDERED: Acetaminophen 325 MG Tab PO ONE (19:15)
[2019-02-18] MEDS ORDERED: traMADol 50 MG Tab PO ONE (22:16)
[2019-02-19 00:22] VITALS: BP 126/52
== END 2019-02-19 00:40 ==
LOC: DL.ED 14:10
DX: R42 Dizziness and giddiness (principal); R51 Headache; I50.9 Heart failure, unspecified; I48.91 Unspecified atrial fibrillation; F41.9 Anxiety disorder, unspecified; E03.9 Hypothyroidism, unspecified; Z79.899 Other long term (current) drug therapy; Z79.82 Long term (current) use of aspirin; Z88.0 Allergy status to penicillin; Z88.2 Allergy status to sulfonamides
CPT/HCPCS: 36415; 70450; 71045; 80053; 81001; 82962; 83880; 84484; 85014; 85018; 85025; 85610; 93005; 96374; 99285; A9270; J2405

== ENCOUNTER 2019-08-29 11:09 | Emergency (ER) | payer MEDICARE, BC ==
[2019-08-29] MEDS ORDERED: Aspirin 81 MG Tab.Chew PO ONE (11:28)
--- NOTE | 2019-08-29 11:49 | EDM.PDOC ---
ED HPI GENERAL MEDICAL PROBLEM - General Chief Complaint: Cardiovascular Problem Stated Complaint: HEART PAIN Time Seen by Provider: 08/29/19 11:40 Source of Information: Reports: Patient History Limitations: Reports: No Limitations - History of Present Illness INITIAL COMMENTS - FREE TEXT/NARRATIVE: This 83 yo female patient reports to the ED due to heart palpitations, chest pains and an elevated blood pressure. The patient reports her symptoms started at about 1030 this morning, but have gotten better since she has been in the ED. The patient reports she took all of her medications this morning except for her Aspirin. The patient reports she does have a pacemaker and has not had similar episodes since that was placed. At the time of examination, the patient reports she does not currently have any pain and feels like her heart is not beating quite as fast. Onset: Today Onset Date: 08/29/19 Onset Time: 10:30 Duration: Improving Location: Reports: Chest Quality: Reports: Other Severity: Moderate Improves with: Reports: None Worsens with: Reports: None Context: Reports: Other Associated Symptoms: Reports: No Other Symptoms - Related Data Allergies Allergy/AdvReac Type Severity Reaction Status Date / Time Penicillins Allergy Airway Verified 11/26/18 19:53 Tightness Sulfa (Sulfonamide Allergy Airway Verified 11/26/18 19:53 Antibiotics) Tightness Home Meds: Home Meds Acetaminophen [Tylenol Arthritis Pain] 650 mg PO Q8H PRN 09/27/13 [History] Amiodarone HCl 200 mg PO DAILY 09/27/13 [History] Aspirin [Loida Chewable Aspirin] 81 mg PO QID 09/27/13 [History] Calcium Carb/Vitamin D3/Vit K1 [Calcium + D Soft Chewable Tab] 1 each PO DAILY 09/27/13 [History] Levothyroxine Sodium 50 mcg PO DAILY 09/27/13 [History] Multivitamin [Multi-Vitamin Daily] 1 tab PO DAILY 09/27/13 [History] Omeprazole 20 mg PO DAILY 09/27/13 [History] Sennosides/Docusate Sodium [Senna-Docusate Sodium] 1 tab PO DAILY 09/27/13 [ History] atorvaSTATin Calcium [Atorvastatin Calcium] 40 mg PO BEDTIME 09/27/13 [History] LORazepam 0.5 mg PO DAILY 12/03/15 [History] Furosemide [Lasix] 40 mg PO DAILY 06/24/17 [History] Meclizine [Antivert] 25 mg PO TID PRN 11/08/18 [History] Sertraline [Zoloft] 25 mg PO DAILY 11/08/18 [History] traMADol [Ultram] 50 mg PO Q6H PRN 11/08/18 [History] traZODone HCl [Trazodone HCl] 50 mg PO BEDTIME PRN 11/08/18 [History] Fluticasone Propionate [Flonase] 1 gm NASBOTH BID #1 bottle 11/10/18 [Rx] Levofloxacin 500 mg PO DAILY #5 tablet 11/10/18 [Rx] diphenhydrAMINE [Benadryl] 25 mg PO BID 2 Days tablet 11/10/18 [Rx] Past Medical History HEENT History: Reports: Hard of Hearing, Impaired Vision Cardiovascular History: Reports: Afib, Heart Failure Other Cardiovascular History: pacemaker consult pending placement Respiratory History: Reports: None Gastrointestinal History: Reports: GERD Genitourinary History: Reports: None 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: Musculoskeletal History: Reports: Back Pain, Chronic Neurological History: Reports: Vertigo Psychiatric History: Reports: Anxiety Endocrine/Metabolic History: Reports: Hypothyroidism Hematologic History: Reports: None Immunologic History: Reports: None Oncologic (Cancer) History: Reports: None Dermatologic History: Reports: None - Past Surgical History Head Surgeries/Procedures: Reports: None Social & Family History - Family History Family Medical History: Noncontributory - Caffeine Use Caffeine Use: Reports: Coffee - Living Situation & Occupation Living situation: Reports: , with Spouse Occupation: Retired ED ROS GENERAL - Review of Systems Review Of Systems: Comprehensive ROS is negative, except as noted in HPI. ED EXAM, GENERAL - Physical Exam Exam: See Below Exam Limited By: No Limitations General Appearance: Alert, WD/WN, Anxious, Mild Distress Eye Exam: Bilateral Eye: EOMI, Normal Inspection, PERRL Ears: Normal External Exam, Normal Canal, Hearing Grossly Normal, Normal TMs Nose: Normal Inspection, Normal Mucosa, No Blood Throat/Mouth: Normal Inspection, Normal Lips, Normal Teeth, Normal Gums, Normal Oropharynx, Normal Voice, No Airway Compromise Head: Atraumatic, Normocephalic Neck: Normal Inspection, Supple, Non-Tender, Full Range of Motion Respiratory/Chest: No Respiratory Distress, Lungs Clear, Normal Breath Sounds, No Accessory Muscle Use, Chest Non-Tender Cardiovascular: Normal Peripheral Pulses, Regular Rate, Rhythm, No Edema, No Gallop, No JVD, No Murmur, No Rub GI/Abdominal: Normal Bowel Sounds, Soft, Non-Tender, No Organomegaly, No Distention, No Abnormal Bruit, No Mass (Female) Exam: Deferred Rectal (Female) Exam: Deferred Back Exam: Normal Inspection, Full Range of Motion, NT Extremities: Normal Inspection, Normal Range of Motion, Non-Tender, Normal Capillary Refill, No Pedal Edema Neurological: Alert, Oriented, CN II-XII Intact, Normal Cognition, Normal Gait, Normal Reflexes, No Motor/Sensory Deficits Psychiatric: Normal Affect, Normal Mood Skin Exam: Warm, Dry, Intact, Normal Color, No Rash Lymphatic: No Adenopathy Course - Vital Signs Last Recorded V/S: Last Vital Signs Temp 36.8 C 08/29/19 11:45 Pulse 77 08/29/19 16:06 Resp 18 08/29/19 16:06 BP 147/64 H 08/29/19 16:06 Pulse Ox 95 08/29/19 16:06 - Orders/Labs/Meds Orders: Active Orders 24 hr Category Date Time Status EKG Documentation Completion [RC] ROUTINE Care 08/29/19 15:30 Active EKG Documentation Completion [RC] URGENT Care 08/29/19 11:13 Active Labs: Laboratory Tests 08/29/19 08/29/19 08/29/19 Range/Units 11:29 11:29 15:26 WBC 6.4 (5.0-10.0) 10^3/uL RBC 4.20 (4.2-5.4) 10^6/uL Hgb 12.8 (12.0-16.0) g/dL Hct 40.2 (37.0-47.0) % MCV 95.7 (80-100) fL MCH 30.5 (27.0-34.0) pg MCHC 31.8 L (33.0-35.0) g/dL Plt Count 206 (150-450) 10^3/uL Neut % (Auto) 68.2 (42.2-75.2) % Lymph % (Auto) 20.5 (20.5-50.1) % [place] % (Auto) 7.7 (2-8) % Eos % (Auto) 3.3 H (1.0-3.0) % Baso % (Auto) 0.3 (0.0-1.0) % Sodium 138 (135-145) mmol/L Potassium 3.5 L (3.6-5.0) mmol/L Chloride 103 (101-111) mmol/L Carbon Dioxide 26.0 (21.0-31.0) mmol/L Anion Gap 12.5 BUN 8 (7-18) mg/dL Creatinine 0.7 (0.6-1.3) mg/dL Est Cr Clr Drug Dosing TNP Estimated GFR (MDRD) > 60 BUN/Creatinine Ratio 11.42 Glucose 149 H (74-105) mg/dL Calcium 9.1 (8.4-10.2) mg/dl Total Bilirubin 0.8 (0.2-1.0) mg/dL AST 22 (10-42) IU/L ALT 14 (10-60) IU/L Alkaline Phosphatase 72 (42-121) IU/L Troponin I < 0.02 < 0.02 (0.00-0.02) ng/ml Total Protein 6.8 (6.7-8.2) g/dl Albumin 3.9 (3.2-5.5) g/dl Globulin 2.9 Albumin/Globulin Ratio 1.34 Meds: Medications Discontinued Medications Generic Name Dose Route Start Last Admin Trade Name Freq PRN Reason Stop Dose Admin Aspirin 324 mg 08/29/19 11:28 08/29/19 12:02 Aspirin PO 08/29/19 11:29 324 mg ONETIME ONE Administration - Re-Assessments/Exams Free Text/Narrative Re-Assessment/Exam: 08/29/19 12:31 The patient reports she has had a vision change 2 times in the past week and 1 1 /2 and was going to have an appointment with her eye doctor this afternoon. The patient reports she has had some "zig zag" vision from her left outer eye during these episodes. Departure - Departure Time of Disposition: 16:25 Disposition: Home, Self-Care 01 Condition: Fair Clinical Impression: Nonspecific chest pain Instructions: Nonspecific Chest Pain, [id number] Forms: ED Department Discharge Care Plan Goals: The patient was advised of the examination, lab, EKG, chest x-ray, repeat EKG and repeat lab results during the visit. 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 If the patient has any additional symptoms or concerns, the patient should either return to the emergency department or visit her primary care facility. - My Orders Last 24 Hours: My Active Orders 08/29/19 11:13 EKG Documentation Completion [RC] URGENT 08/29/19 15:30 EKG Documentation Completion [RC] ROUTINE - Assessment/Plan Last 24 Hours: My Active Orders 08/29/19 11:13 EKG Documentation Completion [RC] URGENT 08/29/19 15:30 EKG Documentation Completion [RC] ROUTINE
--- NOTE | 2019-08-29 11:50 | CR ---
EXAMINATION: Chest 1V Frontal SEX: Female AGE: 83 years CLINICAL HISTORY: 83-year-old female chest pain. Comparison exams and January,. INTERPRETATION: 1. Evidence of lower cervical spinal fusion and cardiac pacemaker (both leads appear symmetrically intact and unchanged since earlier exams. External monitoring specialist leads. 2. Normal cardiac silhouette without pulmonary vascular congestion, cephalization, alveolar edema or dependent pleural effusion. 3. Mild peribronchial "cuffing". No focal lobar pneumonia, atelectasis or collapse. 4. No lung mass or hilar lymphadenopathy. 5. No pneumothorax or pneumomediastinum. No free subdiaphragmatic air. CONCLUSION: No acute new cardiopulmonary abnormality.
[2019-08-29 11:59] LABS: ANION GAP 12.5; CHLORIDE,CL 103 mmol/L (101-111); SODIUM,NA 138 mmol/L (135-145)
[2019-08-29 16:07] VITALS: BP 147/64; PULSE 77
== END 2019-08-29 17:17 | disposition home or self-care (01) ==
LOC: DL.ED 11:09
DX: R07.9 Chest pain, unspecified (principal); I48.91 Unspecified atrial fibrillation; I50.9 Heart failure, unspecified; K21.9 Gastro-esophageal reflux disease without esophagitis; E03.9 Hypothyroidism, unspecified
CPT/HCPCS: 36415; 71045; 80053; 84484; 85025; 93005; 99285; A9270; 99283

== ENCOUNTER 2021-03-19 08:55 | Emergency (ER) | payer MEDICARE, BC ==
--- NOTE | 2021-03-19 09:13 | EDM.PDOC ---
ED HPI GENERAL MEDICAL PROBLEM - General Chief Complaint: Syncope Stated Complaint: PASSING OUT AT HOME Time Seen by Provider: 03/19/21 09:10 Source of Information: Reports: Patient, Old Records, RN, RN Notes Reviewed History Limitations: Reports: No Limitations - History of Present Illness INITIAL COMMENTS - FREE TEXT/NARRATIVE: Emily is an 85 y/o female who is s/p pacemaker and watchman placement for AFib who presents to the ED via personal vehicle with for complaints of pre- syncope. The patient reports to two episodes of dizziness this morning, one while laying in bed and turning her head and the other while looking down and peeling an orange. She denies loss of consciousness during these events; she did not fall and denies recent head trauma. The patient denies recent illness, fever, shaking chills, cough, sore throat, chest pain, vomiting, abdominal pain, dysuria, constipation, or diarrhea. She does attest to nausea and palpitations following the dizzy spells. - Related Data Allergies Allergy/AdvReac Type Severity Reaction Status Date / Time Penicillins Allergy Airway Verified 03/19/21 09:27 Tightness Sulfa (Sulfonamide Allergy Airway Verified 03/19/21 09:27 Antibiotics) Tightness Home Meds: Home Meds Acetaminophen [Tylenol Arthritis Pain] 650 mg PO Q8H PRN 09/27/13 [History] Aspirin [Loida Chewable Aspirin] 81 mg PO QID 09/27/13 [History] Calcium Carb/Vitamin D3/Vit K1 [Calcium + D Soft Chewable Tab] 1 each PO DAILY 09/27/13 [History] Levothyroxine Sodium 50 mcg PO DAILY 09/27/13 [History] Multivitamin [Multi-Vitamin Daily] 1 tab PO DAILY 09/27/13 [History] Omeprazole 20 mg PO DAILY 09/27/13 [History] Sennosides/Docusate Sodium [Senna-Docusate Sodium] 1 tab PO DAILY 09/27/13 [History] atorvaSTATin Calcium [Atorvastatin Calcium] 40 mg PO BEDTIME 09/27/13 [History] Sertraline [Zoloft] 25 mg PO DAILY 11/08/18 [History] traZODone HCl [Trazodone HCl] 50 mg PO BEDTIME PRN 11/08/18 [History] Fluticasone Propionate [Flonase] 1 gm NASBOTH BID #1 bottle 02/20/19 [Rx] Losartan Potassium 25 mg PO DAILY 03/19/21 [History] Past Medical History HEENT History: Reports: Hard of Hearing, Impaired Vision Cardiovascular History: Reports: Afib, Heart Failure Other Cardiovascular History: pacemaker consult pending placement Respiratory History: Reports: None Gastrointestinal History: Reports: GERD Genitourinary History: Reports: 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: Musculoskeletal History: Reports: Back Pain, Chronic Neurological History: Reports: Vertigo Psychiatric History: Reports: Anxiety Endocrine/Metabolic History: Reports: Hypothyroidism Hematologic History: Reports: None Immunologic History: Reports: None Oncologic (Cancer) History: Reports: None Dermatologic History: Reports: None - Past Surgical History Head Surgeries/Procedures: Reports: None Social & Family History - Family History Family Medical History: No Pertinent Family History - Caffeine Use Caffeine Use: Reports: Coffee - Living Situation & Occupation Living situation: Reports: , with Spouse Occupation: Retired ED ROS GENERAL - Review of Systems Review Of Systems: Comprehensive ROS is negative, except as noted in HPI. - Physical Exam Exam: See Below Exam Limited By: No Limitations General Appearance: Alert, No Apparent Distress Eye Exam: Right Eye: Nystagmus (Lateral gaze), Bilateral Eye: EOMI, PERRL (3mm) Ears: Normal External Exam, Normal Canal, Hearing Grossly Normal, Other (Fluid behind bilateral TM) Nose: Normal Inspection, Normal Mucosa, No Blood Throat/Mouth: Normal Inspection, Normal Oropharynx, Normal Voice, No Airway Compromise Head Exam: Atraumatic, Normocephalic Neck: Normal Inspection, Supple, Non-Tender, Full Range of Motion. No: Lymphadenopathy (L), Lymphadenopathy (R) Respiratory/Chest: No Respiratory Distress, Lungs Clear, Normal Breath Sounds, No Accessory Muscle Use, Chest Non-Tender Cardiovascular: Normal Peripheral Pulses, Regular Rate, Rhythm, No Edema, No Gallop, No JVD, No Murmur, No Rub GI/Abdominal: Normal Bowel Sounds, Soft, Non-Tender, No Distention, No Abnormal Bruit, No Mass, Pelvis Stable (Female) Exam: Deferred Rectal (Female) Exam: Deferred Neuro Exam (Abbreviated): Alert, Oriented, CN II-XII Intact, Normal Cognition, Normal Gait, No Motor/Sensory Deficits. No: Memory Loss Remote Events, Memory Loss Recent Events Back Exam: Normal Inspection, Full Range of Motion Extremities: Normal Inspection, Normal Range of Motion, Non-Tender, No Pedal Edema, Normal Capillary Refill Psychiatric: Normal Affect, Normal Mood Skin Exam: Warm, Dry, Intact, Normal Color, No Rash. No: Cyanosis, Erythema, Jaundice, Mottled, Pallor #1 Interpretation EKG Date: 03/19/21 Time: 09:05 Rhythm: Other (V-Paced) Rate (Beats/Min): 78 [place]: Normal P-Wave: Present CA/PQ Interval: 0.058 Comparison: No Change EKG Interpretation Comments: V-paced, atrial sensed; No evidence of acute myocardial ischemia Course - Vital Signs Last Recorded V/S: Last Vital Signs Temp 97.2 F 03/19/21 09:20 Pulse 72 03/19/21 09:20 Resp 16 03/19/21 09:20 BP 156/62 H 03/19/21 09:20 Pulse Ox 94 L 03/19/21 09:20 Orthostatic Blood Pressure [ 169/72 Standing] Orthostatic Blood Pressure [ 153/61 Sitting] Orthostatic Blood Pressure [ 156/62 Supine] - Orders/Labs/Meds Labs: Laboratory Tests 03/19/21 03/19/21 03/19/21 Range/Units 09:12 09:12 09:12 WBC 5.8 (5.0-10.0) 10^3/uL RBC 4.27 (4.2-5.4) 10^6/uL Hgb 13.3 (12.0-16.0) g/dL Hct 41.6 (37.0-47.0) % MCV 97.4 (80-100) fL MCH 31.1 (27.0-34.0) pg MCHC 32.0 L (33.0-35.0) g/dL Plt Count 186 (150-450) 10^3/uL Neut % (Auto) 60.8 (42.2-75.2) % Lymph % (Auto) 30.0 (20.5-50.1) % [place] % (Auto) 6.3 (2-8) % Eos % (Auto) 2.4 (1.0-3.0) % Baso % (Auto) 0.5 (0.0-1.0) % PT 9.5 (9.0-12.0) SEC INR 0.9 (0.9-1.2) APTT 25.2 (22.0-34.0) SEC Sodium 144 (136-145) mmol/L Potassium 3.9 (3.5-5.1) mmol/L Chloride 105 (98-107) mmol/L Carbon Dioxide 29 (21-32) mmol/L Anion Gap 13.9 H (7-13) mEq/L BUN 6 L (7-18) mg/dL Creatinine 0.65 (0.55-1.02) mg/dL Est Cr Clr Drug Dosing 48.23 mL/min Estimated GFR (MDRD) > 60 BUN/Creatinine Ratio 9.2 (No establ ref range) Glucose 120 H (70-99) mg/dL Lactic Acid (0.4-2.0) mmol/L Calcium 9.2 (8.5-10.1) mg/dL Magnesium 2.0 (1.8-2.4) mg/dL Total Bilirubin 0.5 (0.2-1.0) mg/dL AST 16 (15-37) U/L ALT 23 (14-59) U/L Alkaline Phosphatase 79 (46-116) U/L Ammonia (11-32) umol/L Troponin I High Sens 11 (<=51) pg/mL B-Natriuretic Peptide 45 (0-100) pg/ml Total Protein 7.3 (6.4-8.2) g/dL Albumin 4.0 (3.4-5.0) g/dL Globulin 3.3 Albumin/Globulin Ratio 1.2 Urine Color (YELLOW) Urine Appearance (CLEAR) Urine pH (5.0-9.0) Ur Specific [place] (1.005-1.030) Urine Protein (NEGATIVE) Urine Glucose (UA) (NEGATIVE) Urine Ketones (NEGATIVE) Urine Occult Blood (NEGATIVE) Urine Nitrite (NEGATIVE) Urine Bilirubin (NEGATIVE) Urine Urobilinogen (0.2-1.0) mg/dL Ur Leukocyte Esterase (NEGATIVE) Urine Opiates Screen (NEGATIVE) Ur Oxycodone Screen (NEGATIVE) Urine Methadone Screen (NEGATIVE) Ur Barbiturates Screen (NEGATIVE) U Tricyclic Antidepress (NEGATIVE) Ur Phencyclidine Scrn (NEGATIVE) Ur Amphetamine Screen (NEGATIVE) U Methamphetamines Scrn (NEGATIVE) Urine MDMA Screen (NEGATIVE) U Benzodiazepines Scrn (NEGATIVE) Urine Cocaine Screen (NEGATIVE) U Marijuana (THC) Screen (NEGATIVE) Ethyl Alcohol < 3 (0) mg/dL 03/19/21 03/19/21 03/19/21 Range/Units 09:12 09:12 09:38 WBC (5.0-10.0) 10^3/uL RBC (4.2-5.4) 10^6/uL Hgb (12.0-16.0) g/dL Hct (37.0-47.0) % MCV (80-100) fL MCH (27.0-34.0) pg MCHC (33.0-35.0) g/dL Plt Count (150-450) 10^3/uL Neut % (Auto) (42.2-75.2) % Lymph % (Auto) (20.5-50.1) % [place] % (Auto) (2-8) % Eos % (Auto) (1.0-3.0) % Baso % (Auto) (0.0-1.0) % PT (9.0-12.0) SEC INR (0.9-1.2) APTT (22.0-34.0) SEC Sodium (136-145) mmol/L Potassium (3.5-5.1) mmol/L Chloride (98-107) mmol/L Carbon Dioxide (21-32) mmol/L Anion Gap (7-13) mEq/L BUN (7-18) mg/dL Creatinine (0.55-1.02) mg/dL Est Cr Clr Drug Dosing mL/min Estimated GFR (MDRD) BUN/Creatinine Ratio (No establ ref range) Glucose (70-99) mg/dL Lactic Acid 1.0 (0.4-2.0) mmol/L Calcium (8.5-10.1) mg/dL Magnesium (1.8-2.4) mg/dL Total Bilirubin (0.2-1.0) mg/dL AST (15-37) U/L ALT (14-59) U/L Alkaline Phosphatase (46-116) U/L Ammonia < 10 L (11-32) umol/L Troponin I High Sens (<=51) pg/mL B-Natriuretic Peptide (0-100) pg/ml Total Protein (6.4-8.2) g/dL Albumin (3.4-5.0) g/dL Globulin Albumin/Globulin Ratio Urine Color Yellow (YELLOW) Urine Appearance Clear (CLEAR) Urine pH 7.5 (5.0-9.0) Ur Specific [place] 1.020 (1.005-1.030) Urine Protein Negative (NEGATIVE) Urine Glucose (UA) Negative (NEGATIVE) Urine Ketones Negative (NEGATIVE) Urine Occult Blood Negative (NEGATIVE) Urine Nitrite Negative (NEGATIVE) Urine Bilirubin Negative (NEGATIVE) Urine Urobilinogen 0.2 (0.2-1.0) mg/dL Ur Leukocyte Esterase Negative (NEGATIVE) Urine Opiates Screen (NEGATIVE) Ur Oxycodone Screen (NEGATIVE) Urine Methadone Screen (NEGATIVE) Ur Barbiturates Screen (NEGATIVE) U Tricyclic Antidepress (NEGATIVE) Ur Phencyclidine Scrn (NEGATIVE) Ur Amphetamine Screen (NEGATIVE) U Methamphetamines Scrn (NEGATIVE) Urine MDMA Screen (NEGATIVE) U Benzodiazepines Scrn (NEGATIVE) Urine Cocaine Screen (NEGATIVE) U Marijuana (THC) Screen (NEGATIVE) Ethyl Alcohol (0) mg/dL 03/19/21 Range/Units 09:38 WBC (5.0-10.0) 10^3/uL RBC (4.2-5.4) 10^6/uL Hgb (12.0-16.0) g/dL Hct (37.0-47.0) % MCV (80-100) fL MCH (27.0-34.0) pg MCHC (33.0-35.0) g/dL Plt Count (150-450) 10^3/uL Neut % (Auto) (42.2-75.2) % Lymph % (Auto) (20.5-50.1) % [place] % (Auto) (2-8) % Eos % (Auto) (1.0-3.0) % Baso % (Auto) (0.0-1.0) % PT (9.0-12.0) SEC INR (0.9-1.2) APTT (22.0-34.0) SEC Sodium (136-145) mmol/L Potassium (3.5-5.1) mmol/L Chloride (98-107) mmol/L Carbon Dioxide (21-32) mmol/L Anion Gap (7-13) mEq/L BUN (7-18) mg/dL Creatinine (0.55-1.02) mg/dL Est Cr Clr Drug Dosing mL/min Estimated GFR (MDRD) BUN/Creatinine Ratio (No establ ref range) Glucose (70-99) mg/dL Lactic Acid (0.4-2.0) mmol/L Calcium (8.5-10.1) mg/dL Magnesium (1.8-2.4) mg/dL Total Bilirubin (0.2-1.0) mg/dL AST (15-37) U/L ALT (14-59) U/L Alkaline Phosphatase (46-116) U/L Ammonia (11-32) umol/L Troponin I High Sens (<=51) pg/mL B-Natriuretic Peptide (0-100) pg/ml Total Protein (6.4-8.2) g/dL Albumin (3.4-5.0) g/dL Globulin Albumin/Globulin Ratio Urine Color (YELLOW) Urine Appearance (CLEAR) Urine pH (5.0-9.0) Ur Specific [place] (1.005-1.030) Urine Protein (NEGATIVE) Urine Glucose (UA) (NEGATIVE) Urine Ketones (NEGATIVE) Urine Occult Blood (NEGATIVE) Urine Nitrite (NEGATIVE) Urine Bilirubin (NEGATIVE) Urine Urobilinogen (0.2-1.0) mg/dL Ur Leukocyte Esterase (NEGATIVE) Urine Opiates Screen Negative (NEGATIVE) Ur Oxycodone Screen Negative (NEGATIVE) Urine Methadone Screen Negative (NEGATIVE) Ur Barbiturates Screen Negative (NEGATIVE) U Tricyclic Antidepress Negative (NEGATIVE) Ur Phencyclidine Scrn Negative (NEGATIVE) Ur Amphetamine Screen Negative (NEGATIVE) U Methamphetamines Scrn Negative (NEGATIVE) Urine MDMA Screen Negative (NEGATIVE) U Benzodiazepines Scrn Negative (NEGATIVE) Urine Cocaine Screen Negative (NEGATIVE) U Marijuana (THC) Screen Negative (NEGATIVE) Ethyl Alcohol (0) mg/dL - Re-Assessments/Exams Free Text/Narrative Re-Assessment/Exam: 03/19/21 Patient denies dizzy spells since arrival to facility. Orthostatic BPs and up walking to bathroom. Findings of examination and lab work reviewed with patient. Patient states she has a mild headache, but would like to take acetaminophen when she gets home as she does not want to "...pay for it here." Patient advised to follow up with primary care provider, especially should dizzy spells persist despite medications. Red flag signs and symptoms which would warrant reevaluation reviewed. Patient and verbalized understanding and agreement with the plan of care. Departure - Departure Time of Disposition: 10:48 Disposition: Home, Self-Care 01 Condition: Good Clinical Impression: Vertigo - Discharge Information *PRESCRIPTION DRUG MONITORING PROGRAM REVIEWED*: Not Applicable *COPY OF PRESCRIPTION DRUG MONITORING REPORT IN PATIENT VENICE: Not Applicable Forms: ED Department Discharge Additional Instructions: Rx: meclizine 1.) Follow up with your primary care provider regarding today's visit, especially should you experience another bout of dizziness that does not resolve with medication. 2.) Drink plenty of water to stay hydrated. 3.) Utilize a walker for stability should dizziness return. Sepsis Event Note (ED) - Focused Exam Vital Signs: Vital Signs Temp Pulse Resp BP Pulse Ox 03/19/21 09:20 97.2 F 72 16 156/62 H 94 L
[2021-03-19 09:27] VITALS: BP 156/62; PULSE 72
[2021-03-19 09:41] LABS: ANION GAP 13.9 mEq/L (7-13); CHLORIDE,CL 105 mmol/L (98-107); SODIUM,NA 144 mmol/L (136-145)
[2021-03-19 09:46] LABS: PTT,PARTIAL THROMBOPLSTIN TIME 25.2 SEC (22.0-34.0)
== END 2021-03-19 11:20 | disposition home or self-care (01) ==
LOC: DL.ED 08:55
DX: R42 Dizziness and giddiness (principal); I48.91 Unspecified atrial fibrillation; I50.9 Heart failure, unspecified; K21.9 Gastro-esophageal reflux disease without esophagitis; E03.9 Hypothyroidism, unspecified; Z95.0 Presence of cardiac pacemaker; Z88.0 Allergy status to penicillin; Z88.2 Allergy status to sulfonamides; Z79.82 Long term (current) use of aspirin; Z79.899 Other long term (current) drug therapy
CPT/HCPCS: 36415; 80053; 80305-QW; 80307; 81003; 82140; 83605; 83735; 83880; 84484; 85025; 85610; 85730; 93005; 93010; 99284; 99284-25

== ENCOUNTER 2021-09-18 10:50 | Emergency (ER) | payer MEDICARE, BC ==
[2021-09-18 11:31] VITALS: BP 137/56; PULSE 65
--- NOTE | 2021-09-18 11:32 | EDM.PDOC ---
ED HPI GENERAL MEDICAL PROBLEM - General Stated Complaint: HIGH BLOOD PRESSURE / DIZZY SPELLS Time Seen by Provider: 09/18/21 11:35 Source of Information: Reports: Patient History Limitations: Reports: No Limitations - History of Present Illness INITIAL COMMENTS - FREE TEXT/NARRATIVE: This 85 yo female patient reports to the ED with an acute onset of intermittent dizziness. The patient reports she was doing laundry this morning when she suddenly got very dizzy. The patient also reports she was leaning over during [place] when she heard a "pop" in her right lower ribs. The patient reports she continues to have tenderness to the right lower rib area. The patient reports she also has a history of vertigo (last episode was about 2-3 months ago) with similar symptoms. The patient was being seen at PT ([facility]) for this with symptom improvement. The patient reports her primary care provider does not like using Meclizine for vertigo. Onset: Today, Sudden Duration: Intermittent Location: Reports: Generalized Quality: Reports: Other Severity: Moderate Improves with: Reports: Rest Worsens with: Reports: Movement Context: Reports: Other Associated Symptoms: Reports: Chest Pain (Right lower rib pain and tenderness) - Related Data Allergies Allergy/AdvReac Type Severity Reaction Status Date / Time Penicillins Allergy Airway Verified 09/18/21 11:10 Tightness Sulfa (Sulfonamide Allergy Airway Verified 09/18/21 11:10 Antibiotics) Tightness Home Meds: Home Meds Acetaminophen [Tylenol Arthritis Pain] 650 mg PO Q8H PRN 09/27/13 [History] Aspirin [Loida Chewable Aspirin] 325 mg PO QID 09/27/13 [History] Calcium Carb/Vitamin D3/Vit K1 [Calcium + D Soft Chewable Tab] 1 each PO DAILY 09/27/13 [History] Levothyroxine Sodium 50 mcg PO DAILY 09/27/13 [History] Multivitamin [Multi-Vitamin Daily] 1 tab PO DAILY 09/27/13 [History] Sennosides/Docusate Sodium [Senna-Docusate Sodium] 1 tab PO DAILY 09/27/13 [History] atorvaSTATin Calcium [Atorvastatin Calcium] 40 mg PO BEDTIME 09/27/13 [History] Sertraline [Zoloft] 25 mg PO DAILY 11/08/18 [History] traZODone HCl [Trazodone HCl] 50 mg PO BEDTIME PRN 11/08/18 [History] Fluticasone Propionate [Flonase] 1 gm NASBOTH BID #1 bottle 11/10/18 [Rx] Losartan Potassium 25 mg PO DAILY 03/19/21 [History] Pantoprazole Sodium [Protonix] 40 mg PO DAILY 09/18/21 [History] Past Medical History HEENT History: Reports: Hard of Hearing, Impaired Vision Cardiovascular History: Reports: Afib, Heart Failure, Pacemaker Other Cardiovascular History: pacemaker consult pending placement Respiratory History: Reports: None Gastrointestinal History: Reports: GERD Genitourinary History: Reports: None 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: Musculoskeletal History: Reports: Back Pain, Chronic Neurological History: Reports: Vertigo Psychiatric History: Reports: Anxiety Endocrine/Metabolic History: Reports: Hypothyroidism Hematologic History: Reports: None Immunologic History: Reports: None Oncologic (Cancer) History: Reports: None Dermatologic History: Reports: None - Past Surgical History Head Surgeries/Procedures: Reports: None Cardiovascular Surgical History: Reports: Pacer Female Surgical History: Reports: Hysterectomy, Tubal Ligation Musculoskeletal Surgical History: Reports: Other (See Below) Other Musculoskeletal Surgeries/Procedures:: back surgery Social & Family History - Family History Family Medical History: No Pertinent Family History - Caffeine Use Caffeine Use: Reports: Coffee - Living Situation & Occupation Living situation: Reports: , with Spouse Occupation: Retired ED ROS GENERAL - Review of Systems Review Of Systems: Comprehensive ROS is negative, except as noted in HPI. ED EXAM, GENERAL - Physical Exam Exam: See Below Exam Limited By: No Limitations General Appearance: Alert, WD/WN, Mild Distress Eye Exam: Bilateral Eye: EOMI, Normal Inspection, PERRL Ears: Normal External Exam, Normal Canal, Hearing Grossly Normal, Normal TMs Nose: Normal Inspection, Normal Mucosa, No Blood Throat/Mouth: Normal Inspection, Normal Lips, Normal Teeth, Normal Gums, Normal Oropharynx, Normal Voice, No Airway Compromise Head: Atraumatic, Normocephalic Neck: Normal Inspection, Supple, Non-Tender, Full Range of Motion Respiratory/Chest: No Respiratory Distress, Lungs Clear, Normal Breath Sounds, No Accessory Muscle Use, Other (Tenderness to the right lower ribs) Cardiovascular: Normal Peripheral Pulses, Regular Rate, Rhythm, No Edema, No Gallop, No JVD, No Murmur, No Rub GI/Abdominal: Normal Bowel Sounds, Soft, Non-Tender, No Organomegaly, No Distention, No Abnormal Bruit, No Mass (Female) Exam: Deferred Rectal (Female) Exam: Deferred Back Exam: Normal Inspection, Full Range of Motion, NT Extremities: Normal Inspection, Normal Range of Motion, Non-Tender, Normal Capillary Refill, No Pedal Edema Neurological: Alert, Oriented, CN II-XII Intact, Normal Cognition, Normal Reflexes, No Motor/Sensory Deficits, Other (Dizziness with rapid head movements (looking up seems to be the worst)) Psychiatric: Normal Affect, Normal Mood Skin Exam: Warm, Dry, Intact, Normal Color, No Rash Lymphatic: No Adenopathy #1 Interpretation EKG Date: 09/18/21 Time: 11:24 Rhythm: NSR Rate (Beats/Min): 63 [place]: Normal P-Wave: Present QRS: Normal ST-T: Normal QT: Normal Comparison: No Change EKG Interpretation Comments: Paced Rhythm Course - Vital Signs Last Recorded V/S: Last Vital Signs Temp 97.5 F 09/18/21 11:14 Pulse 65 09/18/21 11:14 Resp 18 09/18/21 11:14 BP 137/56 L 09/18/21 11:14 Pulse Ox 93 L 09/18/21 11:14 - Orders/Labs/Meds Orders: Active Orders 24 hr Category Date Time Status CULTURE BLOOD [BC] Stat Lab 09/18/21 11:11 Received Labs: Laboratory Tests 09/18/21 09/18/21 09/18/21 Range/Units 11:11 11:11 11:11 WBC 6.0 (5.0-10.0) 10^3/uL RBC 4.10 L (4.2-5.4) 10^6/uL Hgb 12.7 (12.0-16.0) g/dL Hct 40.2 (37.0-47.0) % MCV 98.0 (80-100) fL MCH 31.0 (27.0-34.0) pg MCHC 31.6 L (33.0-35.0) g/dL Plt Count 220 (150-450) 10^3/uL Neut % (Auto) 69.0 (42.2-75.2) % Lymph % (Auto) 21.4 (20.5-50.1) % [place] % (Auto) 7.8 (2-8) % Eos % (Auto) 1.5 (1.0-3.0) % Baso % (Auto) 0.3 (0.0-1.0) % Sodium 142 (136-145) mmol/L Potassium 4.3 (3.5-5.1) mmol/L Chloride 103 (98-107) mmol/L Carbon Dioxide 29 (21-32) mmol/L Anion Gap 14.3 H (7-13) mEq/L BUN 10 (7-18) mg/dL Creatinine 0.59 (0.55-1.02) mg/dL Est Cr Clr Drug Dosing 62.89 mL/min Estimated GFR (MDRD) > 60 BUN/Creatinine Ratio 16.9 (No establ ref range) Glucose 91 (70-99) mg/dL Lactic Acid 0.6 (0.4-2.0) mmol/L Calcium 9.2 (8.5-10.1) mg/dL Total Bilirubin 0.3 (0.2-1.0) mg/dL AST 22 (15-37) U/L ALT 26 (14-59) U/L Alkaline Phosphatase 85 (46-116) U/L Troponin I High Sens 6 (<=51) pg/mL Total Protein 7.5 (6.4-8.2) g/dL Albumin 4.0 (3.4-5.0) g/dL Globulin 3.5 Albumin/Globulin Ratio 1.1 Urine Color (YELLOW) Urine Appearance (CLEAR) Urine pH (5.0-9.0) Ur Specific [place] (1.005-1.030) Urine Protein (NEGATIVE) Urine Glucose (UA) (NEGATIVE) Urine Ketones (NEGATIVE) Urine Occult Blood (NEGATIVE) Urine Nitrite (NEGATIVE) Urine Bilirubin (NEGATIVE) Urine Urobilinogen (0.2-1.0) mg/dL Ur Leukocyte Esterase (NEGATIVE) 09/18/21 Range/Units 12:50 WBC (5.0-10.0) 10^3/uL RBC (4.2-5.4) 10^6/uL Hgb (12.0-16.0) g/dL Hct (37.0-47.0) % MCV (80-100) fL MCH (27.0-34.0) pg MCHC (33.0-35.0) g/dL Plt Count (150-450) 10^3/uL Neut % (Auto) (42.2-75.2) % Lymph % (Auto) (20.5-50.1) % [place] % (Auto) (2-8) % Eos % (Auto) (1.0-3.0) % Baso % (Auto) (0.0-1.0) % Sodium (136-145) mmol/L Potassium (3.5-5.1) mmol/L Chloride (98-107) mmol/L Carbon Dioxide (21-32) mmol/L Anion Gap (7-13) mEq/L BUN (7-18) mg/dL Creatinine (0.55-1.02) mg/dL Est Cr Clr Drug Dosing mL/min Estimated GFR (MDRD) BUN/Creatinine Ratio (No establ ref range) Glucose (70-99) mg/dL Lactic Acid (0.4-2.0) mmol/L Calcium (8.5-10.1) mg/dL Total Bilirubin (0.2-1.0) mg/dL AST (15-37) U/L ALT (14-59) U/L Alkaline Phosphatase (46-116) U/L Troponin I High Sens (<=51) pg/mL Total Protein (6.4-8.2) g/dL Albumin (3.4-5.0) g/dL Globulin Albumin/Globulin Ratio Urine Color Yellow (YELLOW) Urine Appearance Clear (CLEAR) Urine pH 6.5 (5.0-9.0) Ur Specific [place] 1.010 (1.005-1.030) Urine Protein Negative (NEGATIVE) Urine Glucose (UA) Negative (NEGATIVE) Urine Ketones Negative (NEGATIVE) Urine Occult Blood Negative (NEGATIVE) Urine Nitrite Negative (NEGATIVE) Urine Bilirubin Negative (NEGATIVE) Urine Urobilinogen 0.2 (0.2-1.0) mg/dL Ur Leukocyte Esterase Negative (NEGATIVE) Meds: Medications Discontinued Medications Generic Name Dose Route Start Last Admin Trade Name Freq PRN Reason Stop Dose Admin Meclizine HCl 12.5 mg 09/18/21 14:22 Meclizine 12.5 Mg Tab PO 09/18/21 14:23 ONETIME ONE Departure - Departure Time of Disposition: 14:33 Disposition: Home, Self-Care 01 Condition: Fair Clinical Impression: BPPV (benign paroxysmal positional vertigo) Qualifiers: Laterality: unspecified laterality Qualified Code(s): H81.10 - Benign paroxysmal vertigo, unspecified ear Instructions: Vertigo, [id number] Forms: ED Department Discharge Care Plan Goals: The patient was advised of the examination, lab and EKG results during the vi sit. The patient was referred to physical therapy for continued evaluation and treatment. The patient was given an oral dose of Meclizine (12.5 mg) while in the ED. The patient was encouraged to follow through with continued treatment at physical therapy. If the patient has any additional symptoms or concerns, the patient should either return to the emergency department or visit her primary care facility. Sepsis Event Note (ED) - Focused Exam Vital Signs: Vital Signs Temp Pulse Resp BP Pulse Ox 09/18/21 11:14 97.5 F 65 18 137/56 L 93 L - My Orders Last 24 Hours: My Active Orders 09/18/21 11:11 CULTURE BLOOD [BC] Stat - Assessment/Plan Last 24 Hours: My Active Orders 09/18/21 11:11 CULTURE BLOOD [BC] Stat
[2021-09-18 11:47] LABS: ANION GAP 14.3 mEq/L (7-13); CHLORIDE,CL 103 mmol/L (98-107); SODIUM,NA 142 mmol/L (136-145)
--- NOTE | 2021-09-18 12:12 | CR ---
PROCEDURE INFORMATION: Exam: XR Right Ribs with PA Chest Exam date and time: 09/18/2021 11:56 AM Age: 85 years old Clinical indication: Other: Right side lower rib pain; Prior surgery; Surgery date: 6+ months; Surgery type: Pacemaker; Additional info: Right sided lower rib tenderness, dizziness TECHNIQUE: Imaging protocol: XR Right ribs with PA chest. Views: 3 views COMPARISON: CR Chest 1V Frontal 01/26/2019 4:44 PM FINDINGS: Tubes, catheters and devices: Pacemaker present left chest wall. Leads appear intact. Lungs: Unremarkable. No consolidation. Pleural spaces: Unremarkable. No pleural effusion. No pneumothorax. Heart/Mediastinum: Unremarkable. No cardiomegaly. Bones/joints: Cervical spine fusion. IMPRESSION: No evidence of right rib fractures.
[2021-09-18] MEDS: Meclizine 12.5 MG Tab PO ONE (14:37)
== END 2021-09-18 14:42 | disposition home or self-care (01) ==
LOC: DL.ED 10:50
DX: H81.10 Benign paroxysmal vertigo, unspecified ear (principal); I48.91 Unspecified atrial fibrillation; I50.9 Heart failure, unspecified; K21.9 Gastro-esophageal reflux disease without esophagitis; E03.9 Hypothyroidism, unspecified; Z88.0 Allergy status to penicillin; Z88.2 Allergy status to sulfonamides; Z79.82 Long term (current) use of aspirin; Z79.899 Other long term (current) drug therapy
CPT/HCPCS: 36415; 71101; 80053; 81003; 83605; 84484; 85025; 87040; 93005; 99284; A9270

== ENCOUNTER 2022-01-21 00:54 | Emergency (ER) | payer MEDICARE, BC ==
[2022-01-21 01:59] LABS: ANION GAP 11.1 mEq/L (7-13); CHLORIDE,CL 101 mmol/L (98-107); SODIUM,NA 137 mmol/L (136-145)
[2022-01-21] MEDS ORDERED: Benzonatate 100 MG Cap PO ONE (02:12)
[2022-01-21] MEDS ORDERED: Azithromycin 500 MG in Sodium Chloride 0.9% 250 ML IV ONE (02:19)
[2022-01-21] MEDS ORDERED: Acetaminophen 325 MG Tab PO ONE (03:53)
[2022-01-21] MEDS ORDERED: Ondansetron 4 MG/2 ML SDV IVPUSH ONE ×2 (03:53→06:25)
[2022-01-21] MEDS ORDERED: Dexamethasone 4 MG/ML SDV IVPUSH ONE (03:55)
[2022-01-21] MEDS ORDERED: Potassium Chloride 20 MEQ in Premix Bag 1 BAG IV ONE (04:19)
[2022-01-21] MEDS ORDERED: Sodium Chloride 0.9% 1,000 ML IV ONE (04:24)
[2022-01-21 05:40] VITALS: PULSE 96
[2022-01-21] MEDS ORDERED: Ondansetron 4 MG/2 ML SDV ONE (06:26)
[2022-01-21 06:42] VITALS: BP 138/77
[2022-01-21] MEDS ORDERED: cefTRIAXone 1 GM in Sodium Chloride 0.9% 50 ML IV ONE (08:05)
== END 2022-01-21 09:30 ==
LOC: DL.ED 00:54
DX: U07.1 COVID-19 (principal); J96.00 Acute respiratory failure, unspecified whether with hypoxia or hypercapnia; J12.82 Pneumonia due to coronavirus disease 2019; I11.0 Hypertensive heart disease with heart failure; I50.9 Heart failure, unspecified; E03.9 Hypothyroidism, unspecified; Z88.0 Allergy status to penicillin; Z88.2 Allergy status to sulfonamides; Z79.899 Other long term (current) drug therapy
CPT/HCPCS: 36415; 71250; 80053; 81001; 83605; 85025; 85379; 86140; 87040; 93005; 93010; 94762; 96365; 96366; 96367; 96375; 96376; 99285; 99285-25; A9270-GY; J0456; J0696; J1100; J2405; J3480; J7030; J7050

== ENCOUNTER 2022-08-10 09:46 | Emergency (ER) | payer MEDICARE, BC ==
[2022-08-10 10:01] VITALS: BP 167/64; PULSE 78
[2022-08-10 10:42] LABS: CORONAVIRUS COVID-19 NAA NEGATIVE (NEGATIVE)
[2022-08-10 10:51] LABS: ANION GAP 9.7 mEq/L (7-13)
[2022-08-10] MEDS ORDERED: Meclizine 12.5 MG Tab PO ONE ×2 (11:27→12:28)
== END 2022-08-10 13:30 | disposition home or self-care (01) ==
LOC: DL.ED 09:46
DX: R42 Dizziness and giddiness (principal); I48.91 Unspecified atrial fibrillation; E78.00 Pure hypercholesterolemia, unspecified; I11.0 Hypertensive heart disease with heart failure; I50.9 Heart failure, unspecified; K21.9 Gastro-esophageal reflux disease without esophagitis; E03.9 Hypothyroidism, unspecified; Z88.0 Allergy status to penicillin; Z88.2 Allergy status to sulfonamides; Z79.899 Other long term (current) drug therapy; Z20.822 Contact with and (suspected) exposure to COVID-19
CPT/HCPCS: 0240U; 36415; 80053; 83735; 84443; 84484; 85025; 93005; 99283; A9270

== ENCOUNTER 2022-10-08 11:29 | Inpatient (IN) | payer MEDICARE, BC ==
[2022-10-08 12:49] LABS: ANION GAP 12.5 mEq/L (7-13)
[2022-10-08 13:06] LABS: CORONAVIRUS COVID-19 NAA NEGATIVE (NEGATIVE); RESPIRATORY SYNCYTIAL VIR NAA NEGATIVE (NEGATIVE)
[2022-10-08] MEDS ORDERED: Furosemide 20 MG/2 ML VIAL IVPUSH ONE (13:18)
[2022-10-08] MEDS ORDERED: Heparin Sodium 5,000 Units/ML Vial IVPUSH ONE ×2 (16:09→19:03)
[2022-10-08] MEDS: Heparin Sodium/0.45% NaCl 25,000 UNITS/500 ML BAG IV SCH (16:22)
[2022-10-08] MEDS ORDERED: Sodium Chloride 0.9% 10 ML Syringe FLUSH PRN (17:48)
[2022-10-08] MEDS ORDERED: Ondansetron 4 MG/2 ML SDV IVPUSH PRN (17:48)
[2022-10-08] MEDS ORDERED: Polyethylene Glycol 3350 Powder 17 GM Packet PO PRN (17:48)
[2022-10-08] MEDS ORDERED: HYDROmorphone 0.5 MG/0.5 ML Syringe IVPUSH PRN (17:48)
[2022-10-08] MEDS ORDERED: Magnesium Hydroxide 400 MG/5 ML Susp 30 ML Cup PO PRN (17:48)
[2022-10-08] MEDS ORDERED: Albuterol/Ipratropium 3.0-0.5 MG/3 ML Neb Soln NEB PRN (17:48)
[2022-10-08] MEDS ORDERED: Acetaminophen 325 MG Tab PO PRN ×2 (17:48→18:15)
[2022-10-08] MEDS: amLODIPine 5 MG Tab PO SCH (20:18)
[2022-10-08] MEDS: Sodium Chloride 0.9% 10 ML Syringe FLUSH SCH (20:20)
[2022-10-08] MEDS: traMADol 50 MG Tab PO PRN (22:29)
[2022-10-08] MEDS: Acetaminophen/HYDROcodone 325-5 MG Tab PO PRN (23:42)
[2022-10-09] MEDS ORDERED: Heparin Sodium 5,000 Units/ML Vial IVPUSH ONE (02:19)
[2022-10-09] MEDS: traMADol 50 MG Tab PO PRN ×2 (06:28→15:40)
[2022-10-09] MEDS: Pantoprazole 40 MG Tab.CR PO SCH (06:29)
[2022-10-09 08:10] LABS: ANION GAP 10.9 mEq/L (7-13)
[2022-10-09] MEDS ORDERED: Levothyroxine 75 MCG Tab PO SCH (09:00)
[2022-10-09 09:03] LABS: PTT,PARTIAL THROMBOPLSTIN TIME > 120.0 SEC (22.0-34.0)
[2022-10-09] MEDS: Aspirin 325 MG Tab PO SCH (09:29)
[2022-10-09] MEDS: Sertraline 50 MG Tab PO SCH (09:30)
[2022-10-09] MEDS: Losartan 25 MG Tab PO SCH (09:31)
[2022-10-09] MEDS: Calcium Carbonate/Vitamin D3 1250 MG-5 MCG Tab PO SCH (09:31)
[2022-10-09] MEDS: Hydrochlorothiazide 25 MG Tab PO SCH (09:31)
[2022-10-09] MEDS: Multivitamin Tab PO SCH (09:31)
[2022-10-09] MEDS: Sodium Chloride 0.9% 10 ML Syringe FLUSH SCH ×2 (10:15→20:46)
[2022-10-09] MEDS ORDERED: Potassium Chloride 10 MEQ Tab.ER PO ONE ×2 (13:00→17:00)
[2022-10-09] MEDS: Heparin Sodium/0.45% NaCl 25,000 UNITS/500 ML BAG IV SCH (20:14)
[2022-10-09] MEDS: amLODIPine 5 MG Tab PO SCH (20:52)
[2022-10-10] MEDS: atorvaSTATin 20 MG Tab PO SCH ×2 (00:48→20:51)
[2022-10-10] MEDS: traMADol 50 MG Tab PO PRN ×2 (05:38→19:41)
[2022-10-10] MEDS: Pantoprazole 40 MG Tab.CR PO SCH (05:40)
[2022-10-10] MEDS: Levothyroxine 75 MCG Tab PO SCH (05:40)
[2022-10-10 07:06] LABS: ANION GAP 13.1 mEq/L (7-13)
[2022-10-10] MEDS: Hydrochlorothiazide 25 MG Tab PO SCH (08:43)
[2022-10-10] MEDS: Aspirin 325 MG Tab PO SCH (08:44)
[2022-10-10] MEDS: Losartan 25 MG Tab PO SCH (08:44)
[2022-10-10] MEDS: Sertraline 50 MG Tab PO SCH (08:44)
[2022-10-10] MEDS: Sodium Chloride 0.9% 10 ML Syringe FLUSH SCH ×2 (08:45→20:53)
[2022-10-10] MEDS: Multivitamin Tab PO SCH (08:45)
[2022-10-10] MEDS: Calcium Carbonate/Vitamin D3 1250 MG-5 MCG Tab PO SCH (08:45)
[2022-10-10] MEDS: amLODIPine 5 MG Tab PO SCH (20:51)
[2022-10-10] MEDS: Acetaminophen/HYDROcodone 325-5 MG Tab PO PRN (23:38)
[2022-10-11] MEDS: traMADol 50 MG Tab PO PRN (06:25)
[2022-10-11] MEDS: Levothyroxine 75 MCG Tab PO SCH (06:26)
[2022-10-11] MEDS: Pantoprazole 40 MG Tab.CR PO SCH (06:27)
[2022-10-11 07:04] LABS: ANION GAP 13.5 mEq/L (7-13)
[2022-10-11 07:42] VITALS: PULSE 76
[2022-10-11] MEDS: Losartan 25 MG Tab PO SCH (08:11)
[2022-10-11] MEDS: Sertraline 50 MG Tab PO SCH (08:12)
[2022-10-11] MEDS: Hydrochlorothiazide 25 MG Tab PO SCH (08:12)
[2022-10-11] MEDS: Multivitamin Tab PO SCH (08:12)
[2022-10-11] MEDS: Aspirin 325 MG Tab PO SCH (08:12)
[2022-10-11] MEDS: Calcium Carbonate/Vitamin D3 1250 MG-5 MCG Tab PO SCH (08:12)
[2022-10-11] MEDS: Sodium Chloride 0.9% 10 ML Syringe FLUSH SCH (08:13)
[2022-10-11 11:58] VITALS: BP 130/70
== END 2022-10-11 13:37 | disposition home or self-care (01) | DRG 282 ==
LOC: DL.ED 11:29 → DL.MS 16:08
PROVIDERS: ADMIT Internal Medicine; ATTEND Internal Medicine
DX: I21.4 Non-ST elevation (NSTEMI) myocardial infarction (principal); I50.9 Heart failure, unspecified; Z66 Do not resuscitate; I21.A1 Myocardial infarction type 2; E87.6 Hypokalemia; E78.5 Hyperlipidemia, unspecified; I11.0 Hypertensive heart disease with heart failure; Z20.822 Contact with and (suspected) exposure to COVID-19; H91.90 Unspecified hearing loss, unspecified ear; H54.7 Unspecified visual loss; G89.29 Other chronic pain; M54.9 Dorsalgia, unspecified; I48.91 Unspecified atrial fibrillation; E03.9 Hypothyroidism, unspecified; J44.9 Chronic obstructive pulmonary disease, unspecified; E78.00 Pure hypercholesterolemia, unspecified; M19.90 Unspecified osteoarthritis, unspecified site; R32 Unspecified urinary incontinence; Z87.442 Personal history of urinary calculi; Z86.16 Personal history of COVID-19; Z98.1 Arthrodesis status; I25.10 Atherosclerotic heart disease of native coronary artery without angina pectoris; K21.9 Gastro-esophageal reflux disease without esophagitis; I25.2 Old myocardial infarction; Z95.0 Presence of cardiac pacemaker; Z79.82 Long term (current) use of aspirin; Z79.890 Hormone replacement therapy; Z98.51 Tubal ligation status; Z90.710 Acquired absence of both cervix and uterus; Z79.899 Other long term (current) drug therapy; Z87.891 Personal history of nicotine dependence
CPT/HCPCS: 0241U; 36415; 71046; 80048; 80053; 80061; 81001; 83735; 83880; 84436; 84443; 84484; 85025; 85610; 85730; 86140; 93005; 93010; 96374; 96375; 99232; 99233; 99238; 99285; A9270-GY; J1644; J1940; J3475; J3490

== ENCOUNTER 2022-11-12 00:11 | Inpatient (IN) | payer MEDICARE, BC ==
[2022-11-12] MEDS ORDERED: Furosemide 40 MG/4 ML VIAL IVPUSH ONE (01:35)
[2022-11-12 01:38] LABS: ANION GAP 10.6 mEq/L (7-13)
[2022-11-12 01:40] LABS: CORONAVIRUS COVID-19 NAA NEGATIVE (NEGATIVE); RESPIRATORY SYNCYTIAL VIR NAA NEGATIVE (NEGATIVE)
[2022-11-12] MEDS ORDERED: Potassium Chloride 10 MEQ in Premix Bag 1 BAG IV ONE (01:53)
[2022-11-12] MEDS ORDERED: Acetaminophen/HYDROcodone 325-5 MG Tab PO PRN (05:06)
[2022-11-12] MEDS ORDERED: Polyethylene Glycol 3350 Powder 17 GM Packet PO PRN (05:06)
[2022-11-12] MEDS ORDERED: Magnesium Hydroxide 400 MG/5 ML Susp 30 ML Cup PO PRN (05:06)
[2022-11-12] MEDS ORDERED: HYDROmorphone 0.5 MG/0.5 ML Syringe IVPUSH PRN (05:06)
[2022-11-12] MEDS ORDERED: Albuterol/Ipratropium 3.0-0.5 MG/3 ML Neb Soln NEB PRN (05:06)
[2022-11-12] MEDS ORDERED: Acetaminophen 325 MG Tab PO PRN (06:48)
[2022-11-12] MEDS: Carvedilol 3.125 MG Tab PO SCH ×2 (08:28→18:25)
[2022-11-12] MEDS: Losartan 25 MG Tab PO SCH ×2 (08:28→20:44)
[2022-11-12] MEDS: Aspirin 325 MG Tab PO SCH (08:28)
[2022-11-12] MEDS: Sertraline 50 MG Tab PO SCH (08:29)
[2022-11-12] MEDS: Potassium Chloride 10 MEQ Tab.ER PO SCH ×2 (08:30→18:24)
[2022-11-12] MEDS: Heparin Sodium 5,000 Units/ML Vial SUBCUT SCH ×2 (08:31→20:42)
[2022-11-12] MEDS: Sodium Chloride 0.9% 10 ML Syringe FLUSH SCH ×2 (08:33→21:00)
[2022-11-12] MEDS: Pantoprazole 40 MG Tab.CR PO SCH (09:48)
[2022-11-12] MEDS: Levothyroxine 75 MCG Tab PO SCH (09:48)
[2022-11-12] MEDS: Ondansetron 4 MG/2 ML SDV IVPUSH PRN (17:38)
[2022-11-12] MEDS: Acetaminophen 325 MG Tab PO PRN (20:42)
[2022-11-12] MEDS: atorvaSTATin 20 MG Tab PO SCH (20:42)
[2022-11-12] MEDS: amLODIPine 5 MG Tab PO SCH (20:43)
[2022-11-13] MEDS: Pantoprazole 40 MG Tab.CR PO SCH ×2 (05:38→20:36)
[2022-11-13] MEDS: Levothyroxine 75 MCG Tab PO SCH (05:38)
[2022-11-13 06:54] LABS: ANION GAP 9.7 mEq/L (7-13)
[2022-11-13] MEDS ORDERED: Potassium Chloride 10 MEQ Tab.ER PO SCH ×2 (08:00)
[2022-11-13] MEDS: Heparin Sodium 5,000 Units/ML Vial SUBCUT SCH ×2 (08:38→20:42)
[2022-11-13] MEDS: Carvedilol 3.125 MG Tab PO SCH ×2 (08:38→17:48)
[2022-11-13] MEDS: Losartan 25 MG Tab PO SCH ×2 (08:38→20:37)
[2022-11-13] MEDS: Aspirin 325 MG Tab PO SCH (08:38)
[2022-11-13] MEDS: Sertraline 50 MG Tab PO SCH (08:39)
[2022-11-13] MEDS: Sodium Chloride 0.9% 10 ML Syringe FLUSH SCH ×2 (08:41→20:44)
[2022-11-13] MEDS ORDERED: Potassium Chloride 10 MEQ Tab.ER PO ONE ×2 (11:00→17:00)
[2022-11-13] MEDS ORDERED: Hydrochlorothiazide 25 MG Tab PO ONE (12:00)
[2022-11-13] MEDS: Acetaminophen 325 MG Tab PO PRN (20:34)
[2022-11-13] MEDS: amLODIPine 5 MG Tab PO SCH (20:36)
[2022-11-13] MEDS: atorvaSTATin 20 MG Tab PO SCH (20:36)
[2022-11-13] MEDS ORDERED: Furosemide 20 MG/2 ML VIAL IVPUSH ONE (21:41)
[2022-11-13] MEDS ORDERED: Metoclopramide 10 MG/2 ML SDV IVPUSH PRN (22:18)
[2022-11-13] MEDS ORDERED: LORazepam 2 MG/ML SDV IVPUSH ONE (22:31)
[2022-11-13] MEDS: Sodium Chloride 0.9% 10 ML Syringe FLUSH PRN (22:44)
[2022-11-13] MEDS: Melatonin 3 MG Tab PO PRN (23:28)
[2022-11-14] MEDS ORDERED: Furosemide 20 MG/2 ML VIAL IVPUSH ONE (05:00)
[2022-11-14] MEDS: Levothyroxine 75 MCG Tab PO SCH (05:06)
[2022-11-14] MEDS: Sodium Chloride 0.9% 10 ML Syringe FLUSH PRN (05:07)
[2022-11-14 07:20] LABS: ANION GAP 9.7 mEq/L (7-13)
[2022-11-14] MEDS: Losartan 25 MG Tab PO SCH ×2 (08:32→21:34)
[2022-11-14] MEDS: Sertraline 50 MG Tab PO SCH (08:33)
[2022-11-14] MEDS: Carvedilol 3.125 MG Tab PO SCH ×2 (08:35→17:31)
[2022-11-14] MEDS: Aspirin 325 MG Tab PO SCH (08:36)
[2022-11-14] MEDS: Hydrochlorothiazide 25 MG Tab PO SCH (08:37)
[2022-11-14] MEDS: Heparin Sodium 5,000 Units/ML Vial SUBCUT SCH ×2 (08:37→21:36)
[2022-11-14] MEDS: Sodium Chloride 0.9% 10 ML Syringe FLUSH SCH ×2 (09:43→21:37)
[2022-11-14] MEDS: Ciprofloxacin 500 MG Tab PO SCH ×2 (09:43→21:35)
[2022-11-14] MEDS: Saccharomyces Boulardii (Probiotic) 250 MG Cap PO SCH ×2 (09:43→21:36)
[2022-11-14] MEDS: atorvaSTATin 20 MG Tab PO SCH (21:33)
[2022-11-14] MEDS: Pantoprazole 40 MG Tab.CR PO SCH (21:34)
[2022-11-14] MEDS: Acetaminophen 325 MG Tab PO PRN (21:34)
[2022-11-14] MEDS: amLODIPine 5 MG Tab PO SCH (21:35)
[2022-11-14] MEDS: Melatonin 3 MG Tab PO PRN (21:37)
[2022-11-15] MEDS: Levothyroxine 75 MCG Tab PO SCH (06:26)
[2022-11-15 07:23] LABS: ANION GAP 8.9 mEq/L (7-13)
[2022-11-15] MEDS: Hydrochlorothiazide 25 MG Tab PO SCH ×2 (08:03→16:31)
[2022-11-15] MEDS: Losartan 25 MG Tab PO SCH ×2 (08:03→20:17)
[2022-11-15] MEDS: Aspirin 325 MG Tab PO SCH (08:03)
[2022-11-15] MEDS: Sertraline 50 MG Tab PO SCH (08:03)
[2022-11-15] MEDS: Heparin Sodium 5,000 Units/ML Vial SUBCUT SCH ×2 (08:04→20:16)
[2022-11-15] MEDS: Carvedilol 3.125 MG Tab PO SCH ×2 (08:04→18:04)
[2022-11-15] MEDS: Saccharomyces Boulardii (Probiotic) 250 MG Cap PO SCH ×2 (08:04→20:17)
[2022-11-15] MEDS: Ciprofloxacin 500 MG Tab PO SCH ×2 (08:04→20:20)
[2022-11-15] MEDS: Sodium Chloride 0.9% 10 ML Syringe FLUSH SCH ×2 (08:07→21:00)
[2022-11-15] MEDS ORDERED: Magnesium Sulfate/Water 2 GM in Premix Bag 1 BAG IV ONE (08:25)
[2022-11-15] MEDS: Acetaminophen 325 MG Tab PO PRN ×2 (09:49→20:21)
[2022-11-15] MEDS ORDERED: Potassium Chloride 10 MEQ Tab.ER PO ONE (11:00)
[2022-11-15] MEDS ORDERED: Furosemide 20 MG/2 ML VIAL IVPUSH ONE (12:00)
[2022-11-15] MEDS ORDERED: Hydrochlorothiazide 25 MG Tab PO SCH (15:00)
[2022-11-15] MEDS: amLODIPine 5 MG Tab PO SCH (20:17)
[2022-11-15] MEDS: atorvaSTATin 20 MG Tab PO SCH (20:20)
[2022-11-15] MEDS: Pantoprazole 40 MG Tab.CR PO SCH (20:20)
[2022-11-16] MEDS: Levothyroxine 75 MCG Tab PO SCH (06:18)
[2022-11-16 07:12] LABS: ANION GAP 10.1 mEq/L (7-13)
[2022-11-16] MEDS: Ciprofloxacin 500 MG Tab PO SCH ×2 (08:32→20:48)
[2022-11-16] MEDS: Bisacodyl 5 MG Tab PO PRN ×2 (08:32→08:39)
[2022-11-16] MEDS: Sertraline 50 MG Tab PO SCH (08:32)
[2022-11-16] MEDS: Aspirin 325 MG Tab PO SCH (08:33)
[2022-11-16] MEDS: Acetaminophen 325 MG Tab PO PRN ×2 (08:33→20:49)
[2022-11-16] MEDS: Losartan 25 MG Tab PO SCH ×2 (08:34→20:47)
[2022-11-16] MEDS: Hydrochlorothiazide 25 MG Tab PO SCH ×2 (08:35→13:23)
[2022-11-16] MEDS: Saccharomyces Boulardii (Probiotic) 250 MG Cap PO SCH ×2 (08:36→20:48)
[2022-11-16] MEDS: Carvedilol 3.125 MG Tab PO SCH ×2 (08:36→17:03)
[2022-11-16] MEDS: Sodium Chloride 0.9% 10 ML Syringe FLUSH SCH ×2 (08:37→20:49)
[2022-11-16] MEDS: Heparin Sodium 5,000 Units/ML Vial SUBCUT SCH ×2 (08:43→20:49)
[2022-11-16] MEDS ORDERED: Potassium Chloride 10 MEQ Tab.ER PO ONE (11:00)
[2022-11-16] MEDS: Potassium Chloride 10% 20 MEQ/15 ML Soln 15 ML UD Cup PO SCH ×2 (17:04→17:05)
[2022-11-16] MEDS: amLODIPine 5 MG Tab PO SCH (20:48)
[2022-11-16] MEDS: Pantoprazole 40 MG Tab.CR PO SCH (20:48)
[2022-11-16] MEDS: atorvaSTATin 20 MG Tab PO SCH (20:48)
[2022-11-16] MEDS: Ondansetron 4 MG/2 ML SDV IVPUSH PRN (23:26)
[2022-11-17] MEDS: Levothyroxine 75 MCG Tab PO SCH (06:31)
[2022-11-17] MEDS ORDERED: Potassium Chloride 10 MEQ Tab.ER PO ONE (08:27)
[2022-11-17] MEDS: Potassium Chloride 10% 20 MEQ/15 ML Soln 15 ML UD Cup PO SCH (08:38)
[2022-11-17] MEDS: Heparin Sodium 5,000 Units/ML Vial SUBCUT SCH (08:39)
[2022-11-17] MEDS: Saccharomyces Boulardii (Probiotic) 250 MG Cap PO SCH (08:41)
[2022-11-17] MEDS: Aspirin 325 MG Tab PO SCH (08:42)
[2022-11-17] MEDS: Losartan 25 MG Tab PO SCH (08:42)
[2022-11-17] MEDS: Hydrochlorothiazide 25 MG Tab PO SCH ×2 (08:43→14:26)
[2022-11-17] MEDS: Carvedilol 3.125 MG Tab PO SCH ×2 (08:43→18:08)
[2022-11-17] MEDS: Ciprofloxacin 500 MG Tab PO SCH (08:43)
[2022-11-17] MEDS: Sertraline 50 MG Tab PO SCH (08:44)
[2022-11-17] MEDS: Sodium Chloride 0.9% 10 ML Syringe FLUSH SCH (08:56)
[2022-11-17] MEDS: Acetaminophen 325 MG Tab PO PRN (08:57)
[2022-11-17 12:22] VITALS: BP 139/56; PULSE 73
== END 2022-11-17 18:15 | disposition home or self-care (01) | DRG 291 ==
LOC: DL.ED 00:11 → DL.MS 03:21
PROVIDERS: ADMIT Internal Medicine; ATTEND Internal Medicine
DX: I11.0 Hypertensive heart disease with heart failure (principal); J96.01 Acute respiratory failure with hypoxia; J98.11 Atelectasis; I50.9 Heart failure, unspecified; E78.5 Hyperlipidemia, unspecified; I25.10 Atherosclerotic heart disease of native coronary artery without angina pectoris; I48.91 Unspecified atrial fibrillation; Z66 Do not resuscitate; I49.5 Sick sinus syndrome; J44.9 Chronic obstructive pulmonary disease, unspecified; E03.9 Hypothyroidism, unspecified; K21.9 Gastro-esophageal reflux disease without esophagitis; E78.00 Pure hypercholesterolemia, unspecified; H91.90 Unspecified hearing loss, unspecified ear; Z20.822 Contact with and (suspected) exposure to COVID-19; G89.29 Other chronic pain; M54.9 Dorsalgia, unspecified; M19.90 Unspecified osteoarthritis, unspecified site; E87.6 Hypokalemia; Z87.442 Personal history of urinary calculi; Z86.16 Personal history of COVID-19; I25.2 Old myocardial infarction; Z95.0 Presence of cardiac pacemaker; Z98.890 Other specified postprocedural states; Z87.891 Personal history of nicotine dependence; Z98.1 Arthrodesis status; Z79.82 Long term (current) use of aspirin; Z79.899 Other long term (current) drug therapy; Z99.81 Dependence on supplemental oxygen; Z85.43 Personal history of malignant neoplasm of ovary; Z90.710 Acquired absence of both cervix and uterus; Z98.51 Tubal ligation status
CPT/HCPCS: 0241U; 36415; 71045; 80048; 80053; 81001; 83605; 83735; 83880; 84132; 84484; 85025; 86140; 87086; 93005; 93010; 93306; 96365; 96375; 97161-GP; 97165-GO; 99223; 99233; 99238; 99285; 99285-25; A9270-GY; J1644; J1940; J2060; J2405; J2765; J3475; J3480; J3490; J7620-GY